=== PATIENT | female | born 1965 | race Caucasian/White ===

== ENCOUNTER 2020-02-20 08:15 | Outpatient (REF) | payer OTHER, SELFPAY ==
--- NOTE | 2020-02-20 08:18 | MM_ITS ---
EXAMINATION: MM SCREENING DIGITAL BREAST TOMOSYNTHESIS, BILATERAL CLINICAL INFORMATION: Screening. Asymptomatic. The lifetime risk of breast cancer based on the Tyrer-Cuzick Model is 11%. COMPARISON: Mammography: 02/15/2019, 07/13/2015 TECHNIQUE: Digital breast tomosynthesis is performed in both the craniocaudal and mediolateral oblique views along with computer-aided detection (CAD). Synthesized 2D images are generated from the tomosynthesis. FINDINGS: There are scattered areas of fibroglandular density (ACR BI-RADS breast composition Category b). There are no significant masses, abnormal calcifications, or other abnormalities. Parenchymal pattern is similar to prior studies. MM/MM tomosynthesis screening BI IMPRESSION: No mammographic evidence of malignancy. ASSESSMENT: BI-RADS 1: Negative RECOMMENDATION: Routine annual mammography screening. This patient's information was entered into a reminder system with a target due date for their next mammogram.
== END 2020-02-20 08:16 | disposition home or self-care (01) ==
LOC: HO.MAMMO 08:15
PROVIDERS: Visit Provider Internal Medicine
DX: Z12.31 Encounter for screening mammogram for malignant neoplasm of breast (principal)
CPT/HCPCS: 77063; 77067

== ENCOUNTER 2020-05-03 09:14 | Outpatient (REF) | payer OTHER, SELFPAY ==
[2020-05-03 10:18] LABS: Alanine Aminotransferase 20 U/L (0-31); Albumin Level 4.7 g/dL (3.5-5.0); Alkaline Phosphatase 74 U/L (39-117); Anion Gap 13 (12-20); Aspartate Amino Transferase 16 U/L (5-31); Bilirubin Total 0.5 mg/dL (0.0-1.0); Blood Urea Nitrogen 15 mg/dL (9-16); Calcium 9.5 mg/dL (8.4-10.2); Carbon Dioxide 28 mmol/L (22-29); Chloride 106 mmol/L (96-108); Cholesterol 234 mg/dL; Estimated Glomerular Filt Rate > 60; Glucose Fasting 99 mg/dL (60-99); HDL Cholesterol 57 mg/dL; LDL Cholesterol Calculated 154 mg/dl; Potassium 4.6 mmol/l (3.3-5.1); Sodium 142 mmol/L (135-145); Total Protein 7.4 g/dL (6.5-8.0); Triglycerides 117 mg/dL
[2020-05-03 10:21] LABS: Estimated Average Glucose 105 mg/dL; Hemoglobin A1c % 5.3 %
[2020-05-06 18:27] LABS: Homocysteine 8.1 umol/L (<10.4)
== END 2020-05-03 09:15 | disposition home or self-care (01) ==
LOC: HO.10HDL 09:14
PROVIDERS: Visit Provider Internal Medicine
DX: Z00.00 Encounter for general adult medical examination without abnormal findings (principal); I25.10 Atherosclerotic heart disease of native coronary artery without angina pectoris; I10 Essential (primary) hypertension; E04.1 Nontoxic single thyroid nodule; E66.3 Overweight; R73.01 Impaired fasting glucose; F41.9 Anxiety disorder, unspecified
CPT/HCPCS: 36415; 80053; 80061; 83036; 83090

== ENCOUNTER 2020-05-23 08:27 | Outpatient (REF) | payer OTHER, SELFPAY ==
--- NOTE | 2020-05-23 08:31 | US_ITS ---
EXAMINATION: US ABDOMEN COMPLETE CLINICAL INFORMATION: Cyst of spleen. COMPARISON: Renal ultrasound 03/13/2019. X-ray abdomen 05/08/2016. Abdominal ultrasound 07/31/2013. TECHNIQUE: Real-time imaging of the abdominal viscera. FINDINGS: PANCREAS: Normal. ABDOMINAL AORTA: The proximal, mid, and distal segments are normal in caliber. INFERIOR VENA CAVA: Visualized portions are normal. LIVER: Normal. The liver is normal in size. The liver contour is normal. Parenchymal echogenicity is normal. No focal hepatic lesion. There is no intrahepatic biliary duct dilatation seen. GALLBLADDER: Normal. The gallbladder is physiologically distended without evidence of stones, sludge, polyps, wall thickening or pericholecystic fluid. Small polyps seen on the previous ultrasound exam 2013 are not visualized at this time. COMMON BILE DUCT: Normal in caliber measuring 0.4 cm in diameter. RIGHT KIDNEY: No hydronephrosis or focal parenchymal lesions. The kidney measures 10.8 cm in maximum dimension. There is a small echogenic stone in lower pole measuring 2 x 3 mm. LEFT KIDNEY: Normal. No hydronephrosis. No renal calculi or focal parenchymal lesions. The kidney measures 11.7 cm in maximum dimension. SPLEEN: Normal. The spleen measures 9.3 cm in maximum dimension. There is an echogenic 0.7 cm calcification. No cyst is seen at this time as was noted on the previous study of 04/07/2013. FREE FLUID: None. US/US abdomen complete IMPRESSION: Echogenic calcification seen in the spleen. No complex cyst is visualized in the spleen as was noted on previous 2013 ultrasound. There is no gallbladder polyps seen in either as was noted on the previous ultrasound 2013. The gallbladder is unremarkable. The rest of the abdominal ultrasound is unremarkable.
== END 2020-05-23 08:28 | disposition home or self-care (01) ==
LOC: HO.US 08:27
PROVIDERS: PCP Internal Medicine; Visit Provider Internal Medicine
DX: N20.0 Calculus of kidney (principal); D73.4 Cyst of spleen
CPT/HCPCS: 76700

== ENCOUNTER 2020-07-02 11:07 | Outpatient (REF) | payer OTHER, SELFPAY | END 2020-07-02 11:08 | disposition home or self-care (01) | LOC: HO.LAB 11:07 | PROVIDERS: Visit Provider Internal Medicine | DX: Z20.822 Contact with and (suspected) exposure to COVID-19 (principal) | CPT/HCPCS: 36415; C9803; U0003; U0005 ==

== ENCOUNTER 2020-07-04 11:36 | Outpatient (REF) | payer OTHER, SELFPAY ==
--- NOTE | ~2020-07-04 | XR_ITS ---
EXAMINATION: XR CHEST CLINICAL INFORMATION: Chest pain. COMPARISON: Chest radiograph dated 11/01/2012 TECHNIQUE: Two views of the chest were obtained. FINDINGS: The lungs are clear. The cardiomediastinal silhouette is normal in size. There is no pleural effusion or pneumothorax. No acute osseous abnormality. XR/XR chest 2V IMPRESSION: No acute cardiopulmonary findings.
--- NOTE | 2020-07-04 11:42 | ECG_ITS ---
Test Reason : CP Blood Pressure : / mmHG Vent. Rate : 061 BPM Atrial Rate : 061 BPM P-R Int : 186 ms QRS Dur : 086 ms QT Int : 406 ms P-R-T Axes : 052 044 046 degrees QTc Int : 408 ms Normal sinus rhythm Normal ECG When compared with ECG of 01-NOV-2012 10:29, No significant change was found Referred By: Chiara Marr Electronically Signed By:NAEEM LIN MD
[2020-07-04 13:19] LABS: Troponin-I High Sensitivity 6.5 ng/L (<3.5-17.0)
== END 2020-07-04 11:37 | disposition home or self-care (01) ==
LOC: HO.LAB 11:36
PROVIDERS: Absent Provider Nurse Practitioner Family; PCP Internal Medicine; Visit Provider Internal Medicine
DX: R07.9 Chest pain, unspecified (principal); E78.00 Pure hypercholesterolemia, unspecified; I25.10 Atherosclerotic heart disease of native coronary artery without angina pectoris
CPT/HCPCS: 36415; 71046; 84484; 93005

== ENCOUNTER → 2020-08-22 13:09 | Outpatient (REF) | payer OTHER, SELFPAY ==
--- NOTE | 2020-08-22 13:12 | CA_ITS ---
Transthoracic Echocardiogram Patient (Last, First, Middle): Tori Roth, Gender: Female Date of : 1965 Age: 55 Procedure Date: 08/22/2020 Procedure Type: Transthoracic Echocardiogram Location: OP Height: 162.56 cm Weight: 75.75 kg BSA: 1.81 m2 Heart Rate: bpm BP: 127 / 83 mmHg Network Controller: SARTHAK Crews MD: Tamy Pascal MD Release Engineer: Bayron Dwyer MD Symptoms: I25.10 - Atherosclerotic heart disease of [place] coronary artery without angina pectoris Study Quality: Good ECG Rhythm: Sinus Conclusions: - 1. Normal LV systolic function with grade 1 diastolic dysfunction 2. Normal cardiac valvular Doppler 3. Normal RV systolic pressure 4. No pericardial effusion Findings Left Ventricle Normal left ventricular size, thickness, and systolic function. The visually estimated ejection fraction is between 60-65%. Spectral Doppler is indicative of an impaired relaxation filling pattern. E/E prime ratio is <8, consistent with normal filling pressures. Evidence suggests grade I (mild) diastolic dysfunction. Right Ventricle Normal right ventricular cavity size and systolic function. Atria Both atria are normal in size. Aortic Valve Normal aortic valve structure and function. There is no aortic valve stenosis. There is no aortic valve regurgitation. Mitral Valve Normal mitral valve structure and function. There is trace mitral valve regurgitation. There is no mitral valve stenosis. Pulmonic Valve The pulmonic valve was not well visualized. Tricuspid Valve Likely normal tricuspid valve structure and function. There is trace tricuspid valve regurgitation. The right ventricular systolic pressure is normal. The right ventricular systolic pressure is 20 mmHg. Normal right atrial pressure. There is no evidence of pulmonary hypertension. Great Vessels All visible segments of the aorta are normal in size. The pulmonary artery was not well visualized. Venous The inferior vena cava is normal in size and collapses greater than 50% with inspiration. Pericardium/Pleural There is no evidence of pericardial effusion. Prior Study Comparison No previous study in last 5 years for comparison Measurements 2D Linear Measurements IVSd: 1.00 0.6-0.9/0.6-1.0 cm LVIDd: 4.46 3.9-5.3/4.2-5.9 cm LVIDd Index: 2.46 2.4-3.2/2.2-3.1 cm/m2 LVIDs: 2.43 2.0-3.6 cm LVPWd: 0.99 0.7-1.1 cm Ao Root: 3.30 2.1-3.5 cm LA Diam: 3.70 2.7-3.8/3.0-4.0 cm LAIDs Index: 2.04 1.5-2.3 cm/m2 LV Mass: 186.80 67-162/88-224 g LV Mass Index: 103.21 43-95/49-115 g/m2 LVOT Diam: 2.10 3.0+(-)1.3 cm 2D Systolic Function EF 4C: 70.00 >55% EF 2C: 64.10 >55% EF BiP: 67.70 >55% Mitral Valve MV Pk E: 0.67 MV PK A: 0.80 MV Decel Time: 239.00 E/A: 0.80 E'Lateral: 7.83 E'Medial: 7.25 E/E' Med: 9.20 E/E' Lat: 8.50 PHT: 70.00 MVA PHT: 3.14 Decel Wayne: 2.78 Aortic Valve AoV Pk Miguel Angel: 1.66 AoV Mn Miguel Angel: 1.12 AoV VTI: 0.35 AoV Pk Grad: 11.00 Aov Mn Grad: 6.00 TONEY Cont.VTI: 2.59 LVOT LVOT Pk Miguel Angel: 1.22 LVOT Mn Miguel Angel: 0.81 LVOT VTI: 0.26 LVOT Pk Grad: 6.00 LVOT Mn Grad: 3.00 LVOT Diam: 2.10 LVOT Area: 3.46 Diastolic Function MV Pk E: 0.67 MV Pk A: 0.80 E/A: 0.80 E'Medial: 7.25 E/E' Med: 9.20 E' Laterial: 7.83 E/E' Lat: 8.50 Tricuspid Valve TR Pk Miguel Angel: 2.04 TR Pk Grad: 17.00 RA Press: 3.00 RVSP: 20.00 Great Vessels Aorta Ao Root-2D: 3.30 2.0-3.7 cm Ao Asc: 3.10 2.1-3.4 cm Ao Arch: 2.30 Updated in Other Vendor System with Status of Final Bayron Dwyer MD electronically signed on 08/22/2020 4:53:39 PM with status of Final
== END ==
LOC: HO.CARD 13:09
PROVIDERS: Visit Provider Internal Medicine
DX: I25.10 Atherosclerotic heart disease of native coronary artery without angina pectoris (principal)
CPT/HCPCS: 93306

== ENCOUNTER → 2020-09-18 14:33 | Outpatient (BNVA) | payer OTHER, SELFPAY | PROVIDERS: PCP Internal Medicine; Referring Provider Internal Medicine; Visit Provider Internal Medicine Cardiovascular Disease | DX: Z01.810 Encounter for preprocedural cardiovascular examination (principal); I25.42 Coronary artery dissection; I10 Essential (primary) hypertension | CPT/HCPCS: 93005 ==

== ENCOUNTER 2020-10-02 09:08 | Day surgery (SDC) | payer OTHER, SELFPAY ==
[2020-09-27 08:36] VITALS: BMI 29.1
--- NOTE | 2020-09-27 14:55 | HO.ANESPROP2 ---
HPI - Anesthesia Eval Consult details Narrative: 55yo F for Upper Endoscopy and Colonoscopy Cardiac cleared @ low to intermed risk. She has no concerning cardiovascular symptoms right now. With activity she has no chest pain or shortness of breath. I think she can proceed with colonoscopy/EGD with low to intermediate risk for perioperative cardiovascular complications. 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 [facility] Active Problems Active Problems: All Active Problems (Updated 09/18/20 @ 15:32 by Oscar Cyr MD) Preoperative cardiovascular examination (Acute) Spontaneous dissection of coronary artery (Acute) Hypercholesterolemia (Acute) Chest pain (Acute) Renal calculi (Acute) Splenic cyst (Acute) Thyroid nodule (Acute) Anxiety (Acute) Hypertension (Acute) Coronary artery disease (Acute) Past Medical History Medical History (Updated 09/18/20 @ 15:32 by Oscar Cyr MD) Anemia Anxiety Chest pain Coronary artery disease Hypertension On beta jarrett at home Renal calculi Splenic cyst Thyroid nodule Vasospastic angina Family History Family History Father Mouth cancer Mother T-cell lymphoma Hypertension Maternal Uncle Stomach cancer Paternal Aunt Stomach cancer Colon cancer Paternal Uncle Myocardial infarction Cancer of kidney Son No problems noted. Daughter No problems noted. Surgical History Surgical History (Updated 08/16/20 @ 13:35 by Gracie Stapleton) History of section History of esophagogastroduodenoscopy (EGD) History of lithotripsy History of total hysterectomy S/P cardiac catheterization Social History Social History Alcohol intake: current Alcohol intake frequency: holidays/special occasions only Patient Tobacco Use Status: Never used Tobacco Use of substances other than those prescribed or required for medical reasons: No Are you DNR?: No Advance Directives: No Advance Directives Information Provided: Yes Meds Allergies Allergy/AdvReac Type Severity Reaction Status Date / Time naproxen Allergy Unknown Unknown Verified 08/16/20 13:30 perindopril Allergy Unknown Unknown Verified 04/25/20 08:28 lisinopril AdvReac Intermediate cough Verified 09/27/20 08:37 Home Medications Medication Instructions Recorded Confirmed Last Taken Type ascorbate calcium (vitamin C) 500 500 mg PO DAILY 05/07/20 09/27/20 Unknown History mg tablet cholecalciferol (vitamin D3) 25 25 mcg PO DAILY 05/07/20 09/27/20 Unknown History mcg (1,000 unit) capsule Exam Exam Date and Time: September 27, 2020 1455 Height,Weight and Vital Signs: Height 5 ft 4 in Weight 77 kg Narrative Narrative: EKG 08/2020 Normal sinus rhythm, normal EKG, QTC 405 milliseconds. ECHO 07/2020 Conclusions: - 1. Normal LV systolic function with grade 1 diastolic dysfunction 2. Normal cardiac valvular Doppler 3. Normal RV systolic pressure 4. No pericardial effusion Assessment and Plan Assessment Anesthesia Assessment: Chart Reviewed
[2020-10-02 09:28] VITALS: BP 143/77; PULSE 76; RESP 18; TEMP 36.7; O2SAT 97
[2020-10-02] MEDS: Lactated Ringers 1,000 ML 100 ML IVCONT (09:50)
[2020-10-02 11:40] VITALS: BP 105/59; PULSE 71; RESP 16; TEMP 36.2; O2SAT 99
--- NOTE | 2020-10-02 11:46 | PM.OP ---
Brief Operative Note Date of Service: 10/02/20 Pre-op diagnosis: GERD, Screening Post-op diagnosis: other (Hiatal hernia, Colon polyp) Procedure: EGD, Colonoscopy to the cecum and TI with biopsy and removal of polyp Surgeon: Benito Mathews Anesthesia: MAC Was an Blanket Winder Operator used for this Procedure?: No Estimated blood loss (mL): 3.0 Pathology: other (A. Cecal polyp) Condition: stable Disposition: PACU
[2020-10-02 11:55] VITALS: BP 117/66; PULSE 67; RESP 18; TEMP 36.3; O2SAT 97
--- NOTE | 2020-10-11 12:29 | OP_ITS ---
SURGEON: Benito Mathews MD INDICATIONS: The patient presents for evaluation of gastroesophageal reflux and colorectal cancer screening. Full consent was obtained from her for this, including risks of bleeding and perforation. PREOPERATIVE DIAGNOSIS: Gastroesophageal reflux and colorectal cancer screening. POSTOPERATIVE DIAGNOSIS: Gastroesophageal reflux and colorectal cancer screening, small hiatal hernia, small colon polyp, mild sigmoid diverticulosis, internal hemorrhoids. PROCEDURE PERFORMED: Esophagogastroduodenoscopy, and colonoscopy to cecum and terminal ileum with biopsy and removal of polyp. ESTIMATED BLOOD LOSS: COMPLICATIONS: ANESTHESIA: Preop medication used, monitored anesthesia care. ASSISTANTS: SPECIMENS: DESCRIPTION OF PROCEDURE: Patient was placed in the left lateral decubitus position. The Olympus video gastroscope was passed in the posterior oropharynx and upper esophagus under direct vision. The scope was passed slowly into the distal esophagus. The gastroesophageal junction appeared normal at 36 cm. There was no sign of any esophagitis nor mass. There was a minimal hiatal hernia. The scope was advanced to the pylorus and duodenum was cannulated to the descending portion. The duodenum including the bulb appeared normal without mass or ulceration. The scope was withdrawn back to the stomach. The gastric antrum and body appeared normal with good peristalsis. The scope was retroflexed visualizing the proximal stomach carefully, which appeared normal, without any sign of mass or ulceration. Scope was straightened and withdrawn back to the esophagus. The esophageal mucosa appeared normal. The scope was withdrawn from the patient. She was turned around for the colonoscopy. The digital rectal exam revealed no abnormalities. The Olympus video pediatric colonoscope was entered into the rectum and advanced easily to the cecum. Once in the cecum, I did identify cecal pouch with appendiceal orifice and a normal-appearing ileocecal valve. The terminal ileum was cannulated and appeared normal. Scope was withdrawn back in the colon. The entire cecum and ileocecal valve appeared normal other than a 3 mm polyp in the cecum, which was biopsied and completely removed with cold biopsy forceps. I did not visualize any other abnormalities in the cecum. The scope was then slowly withdrawn assessing all mucosal surfaces carefully. Preparation was excellent. I did not visualize any other polyps, colitis, nor angiodysplasia. There was a mild amount of sigmoid diverticulosis. In the rectum, scope was retroflexed visualizing small internal hemorrhoids, but no other pathology. The rectal mucosa appeared normal. The scope was straightened and withdrawn from the patient. She tolerated both procedures well and was returned to the recovery area in stable condition. IMPRESSION: 1. Minimal hiatal hernia, otherwise, normal upper endoscopy. 2. Small colon polyp, status post biopsy removal. 3. Sigmoid diverticulosis. 4. Internal hemorrhoids. PLAN: The results of biopsy will be checked. If this is a tubular adenoma, I would recommend a followup colonoscopy in 5 years. If it is only hyperplastic, I would recommend a followup colonoscopy in 10 years. She had been advised at the last office visit to try to stop her omeprazole as we did not think her symptoms were consistent with reflux. Given today's negative endoscopy, I do not think she needs to go back on omeprazole at this time. She will, otherwise, see me on a p.r.n. basis. MD VIC Joseph/SHANNON / [id number] MTDD
== END 2020-10-02 12:25 | disposition home or self-care (01) ==
PROVIDERS: PCP Internal Medicine; Visit Provider Internal Medicine
PROC: (CPT 45380; principal; 2020-10-02 10:00)
DX: Z12.11 Encounter for screening for malignant neoplasm of colon (principal); D12.0 Benign neoplasm of cecum; K57.30 Diverticulosis of large intestine without perforation or abscess without bleeding; K64.8 Other hemorrhoids; K21.9 Gastro-esophageal reflux disease without esophagitis; K44.9 Diaphragmatic hernia without obstruction or gangrene; I10 Essential (primary) hypertension; I25.42 Coronary artery dissection; Z79.899 Other long term (current) drug therapy
CPT/HCPCS: 45380; 43235; 88305

== ENCOUNTER 2021-02-24 08:39 | Outpatient (REF) | payer OTHER, SELFPAY ==
[2021-02-24 09:39] LABS: Alanine Aminotransferase 14 U/L (0-31); Albumin Level 4.4 g/dL (3.5-5.0); Alkaline Phosphatase 73 U/L (39-117); Anion Gap 10 (12-20); Aspartate Amino Transferase 12 U/L (5-31); Bilirubin Total 0.4 mg/dL (0.0-1.0); Blood Urea Nitrogen 13 mg/dL (9-16); Calcium 9.5 mg/dL (8.4-10.2); Carbon Dioxide 29 mmol/L (22-29); Chloride 108 mmol/L (96-108); Cholesterol 228 mg/dL; Estimated Glomerular Filt Rate > 60; Glucose Random 101 mg/dL (60-115); HDL Cholesterol 52 mg/dL; LDL Cholesterol Calculated 149 mg/dl; Potassium 4.4 mmol/L (3.3-5.1); Sodium 143 mmol/L (135-145); Triglycerides 136 mg/dL
== END 2021-02-24 08:40 | disposition home or self-care (01) ==
LOC: HO.LAB 08:39
PROVIDERS: PCP Internal Medicine; Visit Provider Internal Medicine
DX: E78.00 Pure hypercholesterolemia, unspecified (principal)
CPT/HCPCS: 36415; 80053; 80061

== ENCOUNTER 2021-03-17 08:37 | Outpatient (REF) | payer OTHER, SELFPAY ==
--- NOTE | ~2021-03-17 | US_ITS ---
EXAMINATION: US ABDOMEN COMPLETE CLINICAL INFORMATION: Other specified abnormal findings of blood chemistry. COMPARISON: Ultrasound abdomen complete 05/23/2020. Renal ultrasound 03/13/2019. X-ray abdomen 05/08/2016. TECHNIQUE: Real-time imaging of the abdominal viscera. FINDINGS: PANCREAS: Normal. ABDOMINAL AORTA: The proximal, mid, and distal segments are normal in caliber. INFERIOR VENA CAVA: Visualized portions are normal. LIVER: The liver is normal in size. The liver contour is normal. There is mild increased liver echogenicity. No focal hepatic lesion. There is no intrahepatic biliary duct dilatation seen. GALLBLADDER: Normal. The gallbladder is physiologically distended without evidence of stones, sludge, polyps, wall thickening or pericholecystic fluid. COMMON BILE DUCT: Normal in caliber measuring 0.6 cm in diameter. RIGHT KIDNEY: Normal. No hydronephrosis. No renal calculi or focal parenchymal lesions. The kidney measures 11.4 cm in maximum dimension. LEFT KIDNEY: There is an echogenic cluster of stones in the upper pole measuring 0.6 x 0.5 x 0.6 cm. No hydronephrosis or focal parenchymal lesions. The kidney measures 12.2 cm in maximum dimension. SPLEEN: Normal. The spleen measures 9.1 cm in maximum dimension. FREE FLUID: None. US/US abdomen complete IMPRESSION: Mildly echogenic liver. No focal lesion seen. Clustered stones in the upper pole left kidney without caliectasis. The rest of the abdominal ultrasound is unremarkable.
== END 2021-03-17 08:38 | disposition home or self-care (01) ==
LOC: HO.US 08:37
PROVIDERS: PCP Internal Medicine; Visit Provider Internal Medicine
DX: R10.11 Right upper quadrant pain (principal); N20.0 Calculus of kidney; R79.89 Other specified abnormal findings of blood chemistry
CPT/HCPCS: 76700

== ENCOUNTER → 2021-03-24 12:52 | Outpatient (BNVA) | payer OTHER, SELFPAY | PROVIDERS: PCP Internal Medicine; Referring Provider Internal Medicine; Visit Provider Internal Medicine Cardiovascular Disease ==

== ENCOUNTER → 2021-06-19 09:01 | Outpatient (REF) | payer OTHER, SELFPAY ==
--- NOTE | 2021-06-19 09:04 | CA_ITS ---
Acquisition Time: 2021-06-19 09:29:03 Total Exercise Time: 00:08:12 Test Indications: CP Medications: SEE CHART Protocol: SABIHA Max HR: 142 BPM 86% of Pred: 164 BPM Max BP: 170/080 mmHG Max Work Load: 10.1 METS Exercise stres test with exercise 8 min 12 sec of Sabiha protocol, without anginal symptoms, with isolated PVC, with normotensive response to exercise, with EKG changes meeting criteria for ischemia: [address] depression inferiorly, V6, 0.5-1mm horizontal ST depression V3-V5 with gradual improvement in recovery. Test reviewed with Dr Willard Will order exercise nuclear stress test for further evaluation. Referred By: Tamy Pascal Overread By: CARY JI
== END ==
LOC: HO.CARD 09:01
PROVIDERS: PCP Internal Medicine; Visit Provider Internal Medicine
DX: R07.9 Chest pain, unspecified (principal); R94.39 Abnormal result of other cardiovascular function study
CPT/HCPCS: 93017

== ENCOUNTER 2021-07-07 15:09 | Outpatient (REF) | payer OTHER, SELFPAY ==
--- NOTE | ~2021-07-07 | XR_ITS ---
EXAMINATION: XR CHEST CLINICAL INFORMATION: Chest pain COMPARISON: Previous chest x-ray June 2020 TECHNIQUE: 2 views of the chest were obtained. FINDINGS: The cardiac and mediastinal contours are stable. The lungs are clear. There is no pleural effusion or pneumothorax. There are degenerative changes of the spine. XR/XR chest 2V IMPRESSION: No evidence for acute disease in the chest.
--- NOTE | 2021-07-07 15:14 | ECG_ITS ---
Test Reason : CHEST PAIN Blood Pressure : / mmHG Vent. Rate : 074 BPM Atrial Rate : 074 BPM P-R Int : 168 ms QRS Dur : 086 ms QT Int : 376 ms P-R-T Axes : 071 060 069 degrees QTc Int : 417 ms Normal sinus rhythm Normal ECG When compared with ECG of 04-JUL-2020 11:48, No significant change was found Referred By: Tamy Pascal Electronically Signed By:KOLTON OWENS
== END 2021-07-07 15:10 | disposition home or self-care (01) ==
LOC: HO.XRAY 15:09
PROVIDERS: PCP Internal Medicine; Visit Provider Internal Medicine
DX: R07.9 Chest pain, unspecified (principal)
CPT/HCPCS: 71046; 93005

== ENCOUNTER → 2021-07-09 08:05 | Outpatient (REF) | payer OTHER, SELFPAY ==
--- NOTE | ~2021-07-09 | NM_ITS ---
Exercise Myocardial perfusion study Indication: Abnormal stress test to evaluate for myocardial ischemia Technique: The patient was brought in for an exercise perfusion study on 07/09/2021. Patient performed exercise as per Vicente protocol and was injected 25 mCi of sestamibi was given intravenously one target HR was achieved. Images were obtained using the SPECT gamma camera interlaced with the gating device. Images were obtained in supine position. Resting perfusion study was performed on 07/10/2021. Patient was administered 25 mCi of sestamibi intravenously at rest. Images were then obtained in supine position. Images obtained with and without CT attenuation. Total DLP 105 mGy-cm. Images were processed with the software and compared side to side in short axis, horizontal long axis and vertical long axis views. Findings: The stress perfusion study showed non attenuated and attenuated corrected images show normal uptake of radiotracer in all segments of LV myocardium. The gated study shows normal LV systolic function with calculated LVEF of greater than 70 %. LV cavity is normal in size. The gated study shows normal systolic wall thickening and contraction of all segments. There is no transient ischemic dilation. Resting study shows non attenuated images show uptake in the basal inferoseptal wall of the LV myocardium.. Gating at rest reveals normal systolic wall motion with visually estimated ejection fraction at greater than 70%. The findings are consistent with normal myocardial perfusion. NM/NM cardiolite stress test Impression: 1. Normal myocardial perfusion 2. Gated LVEF is greater than 70% 3. Transient ischemic dilatation not present Stress EKG is positive for ischemia
--- NOTE | 2021-07-09 08:08 | CA_ITS ---
Acquisition Time: 2021-07-09 08:15:39 Total Exercise Time: 00:09:06 Test Indications: Abnormal Treadmill Test Medications: AMLODIPINE METOPROLOL Protocol: SABIHA Max HR: 144 BPM 87% of Pred: 164 BPM Max BP: 172/084 mmHG Max Work Load: 10.2 METS Exercise stress test with exercise 9 min 6 sec of Sabiha protocol, without anginal symptoms, without arrythmia, with normotensive response to exercise, with EKG changes meeting criteria for ischemia; horizontal ST depression nferiorly and V5-V6 with gradual improvement in recovery. Nuclear images pending. Test reviewed with Dr Willard. Referred By: Kylie Adhikari Overread By: KYLIE ADHIKARI
== END ==
LOC: HO.CARD 08:05
PROVIDERS: Visit Provider Nurse Practitioner Family
DX: R07.9 Chest pain, unspecified (principal); R94.39 Abnormal result of other cardiovascular function study
CPT/HCPCS: 78452; 93017; A9500

== ENCOUNTER → 2021-09-15 13:43 | Outpatient (BNVA) | payer OTHER, SELFPAY | PROVIDERS: PCP Internal Medicine; Referring Provider Internal Medicine; Visit Provider Internal Medicine Cardiovascular Disease | DX: I25.42 Coronary artery dissection (principal) ==

== ENCOUNTER 2022-01-27 09:15 | Outpatient (REF) | payer OTHER, SELFPAY ==
[2022-01-27 11:14] LABS: Appearance Urine Clear; Color Urine Yellow; Glucose Urine UA Negative (Negative); Leukocyte Esterase Urine Trace (Negative); Nitrite Urine Negative (Negative); Specific Gravity - Urine <= 1.005 (1.005-1.025); UMIC TRIGGER UACC YES; Urine Blood Negative (Negative); Urine Ketones Negative (Negative); Urine Protein Negative (Neg-Trace)
[2022-01-27 11:21] LABS: Bacteria Urine None Seen (None Seen); Hyaline Casts Urine 0-2 /LPF (0-2); RBC Urine 0-2 /HPF (0-2); Squamous Epithelial Cell Urine 0-2 /HPF (0-2); WBC Urine 0-5 /HPF (0-5)
== END 2022-01-27 09:16 | disposition home or self-care (01) ==
LOC: HO.LAB 09:15
PROVIDERS: PCP Internal Medicine; Visit Provider Physician Assistant
DX: R30.0 Dysuria (principal); N20.0 Calculus of kidney
CPT/HCPCS: 81001; 87086

== ENCOUNTER 2022-02-13 09:06 | Outpatient (REF) | payer OTHER, SELFPAY ==
--- NOTE | ~2022-02-13 | US_ITS ---
EXAMINATION: US RETROPERITONEAL LIMITED (RENAL ONLY) CLINICAL INFORMATION: Calculus of kidney. COMPARISON: Ultrasound abdomen complete 03/17/2021 and 05/23/2020. X-ray abdomen 10/06/2016. X-ray abdomen KUB 08/30/2013 TECHNIQUE: Real-time imaging of the kidneys. FINDINGS: RIGHT KIDNEY: 10.7 x 4.7 x 4.8 cm (SAG x AP x TRV). The kidney is normal in size, contour, and echogenicity. Renal cortical thickness is normal. No calculi or focal parenchymal lesions. No hydronephrosis. LEFT KIDNEY: 11.7 x 5.0 x 5.8 cm (SAG x AP x TRV). The kidney is normal in size, contour, and echogenicity. Renal cortical thickness is normal. There is a 2 mm stone in the midpole. No focal parenchymal lesions or hydronephrosis. US/US renal BI IMPRESSION: Small left renal stone..
== END 2022-02-13 09:07 | disposition home or self-care (01) ==
LOC: HO.HMGCX 09:06
PROVIDERS: PCP Internal Medicine; Visit Provider Physician Assistant
DX: N20.0 Calculus of kidney (principal)
CPT/HCPCS: 76775

== ENCOUNTER → 2022-03-12 09:40 | Outpatient (BNVA) | payer OTHER, SELFPAY | PROVIDERS: PCP Internal Medicine; Referring Provider Internal Medicine; Visit Provider Internal Medicine Cardiovascular Disease | DX: R94.31 Abnormal electrocardiogram [ECG] [EKG] (principal); I25.42 Coronary artery dissection; I25.2 Old myocardial infarction; I10 Essential (primary) hypertension | CPT/HCPCS: 93005 ==

== ENCOUNTER 2022-04-15 07:42 | Outpatient (REF) | payer OTHER, SELFPAY ==
--- NOTE | ~2022-04-15 | MM_ITS ---
EXAMINATION: MM SCREENING DIGITAL BREAST TOMOSYNTHESIS, BILATERAL CLINICAL INFORMATION: Screening. Asymptomatic. The lifetime risk of breast cancer based on the Tyrer-Cuzick Model is 8%. COMPARISON: Mammography: 02/20/2020, 02/15/2019, 07/13/2015 TECHNIQUE: Digital breast tomosynthesis is performed in both the craniocaudal and mediolateral oblique views along with computer-aided detection (CAD). Synthesized 2D images are generated from the tomosynthesis. FINDINGS: There are scattered areas of fibroglandular density (ACR BI-RADS breast composition Category b). There are no significant masses, abnormal calcifications, or other abnormalities. Parenchymal pattern is similar to prior studies. There is no developing density or architectural abnormality. The axilla and skin contours are unremarkable. No significant changes. MM/MM tomosynthesis screening BI IMPRESSION: No mammographic evidence of malignancy. ASSESSMENT: BI-RADS 1: Negative RECOMMENDATION: Routine annual mammography screening. This patient's information was entered into a reminder system with a target due date for their next mammogram.
== END 2022-04-15 07:43 | disposition home or self-care (01) ==
LOC: HO.MAMMO 07:42
PROVIDERS: PCP Internal Medicine; Visit Provider Internal Medicine
DX: Z12.31 Encounter for screening mammogram for malignant neoplasm of breast (principal)
CPT/HCPCS: 77063; 77067

== ENCOUNTER 2022-07-21 13:00 | Outpatient (REF) | payer OTHER, SELFPAY ==
--- NOTE | ~2022-07-21 | US_ITS ---
EXAMINATION: US THYROID CLINICAL INFORMATION: Nontoxic single thyroid nodule. COMPARISON: Ultrasound thyroid 01/23/2020 and 03/13/2019. TECHNIQUE: Linear transducer grayscale and color Doppler examination with attention to the region of the thyroid. FINDINGS: SIZE: Measurements of the thyroid lobes and nodules are given in sagittal, anteroposterior and transverse dimensions respectively. Right Thyroid Lobe: 4.1 x 1.8 x 1.8 cm, volume 6.9 mL. Previously 4.9 x 1.4 x 1.7 cm, volume 6.1 mL. Parenchyma: The gland echotexture is homogeneous. Thyroid vascularity is normal. Left Thyroid Lobe: 3.9 x 1.4 x 1.3 cm, volume 3.7 mL. Previously 4.0 x 1.5 x 1.6 cm, volume 5.0 mL. Parenchyma: The gland echotexture is homogeneous. Thyroid vascularity is normal. Isthmus: 0.4 cm in maximum AP dimension. Previously 0.4 cm. No focal thyroid nodule is seen. Bilateral simple and colloid cysts, all measuring less than 1 cm. No suspicious thyroid nodule. NODES: No lymphadenopathy is seen in the tissue surrounding the thyroid gland. US/US thyroid IMPRESSION: Bilateral simple and colloid cysts, all measuring less than 1 cm. No suspicious thyroid nodule. According to TI rads criteria, no US follow up recommended. ACR TI-RADS RECOMMENDATION REFERENCE: Ultrasound-guided fine-needle aspiration, followup ultrasound, no further follow up. * TR1 (0 point) and TR2 (2 points): No FNA or follow up. * TR3 (3 points): FNA if more than or equal to 2.5 cm in maximum dimension, followup ultrasound in 1, 3 and 5 years if 1.5 to 2.4 cm in maximum dimension. * TR4 (4-6 points): FNA if more than or equal to 1.5 cm in maximum dimension, followup ultrasound in 1, 2, 3 and 5 years if 1 to 1.4 cm in maximum dimension. * TR5 (more than or equal to 7 points): FNA if more than or equal to 1 cm in maximum dimension, followup ultrasound every year for 5 years if 0.5 to 0.9 cm in maximum dimension. * TR3, TR4 or TR5 nodules that are below the size threshold for followup receive no follow up.
== END 2022-07-21 13:01 | disposition home or self-care (01) ==
LOC: HO.US 13:00
PROVIDERS: PCP Internal Medicine; Visit Provider Internal Medicine
DX: E04.1 Nontoxic single thyroid nodule (principal)
CPT/HCPCS: 76536

== ENCOUNTER 2022-08-05 07:06 | Outpatient (REF) | payer OTHER, SELFPAY ==
--- NOTE | ~2022-08-05 | XR_ITS ---
EXAMINATION: XR SHOULDER, RIGHT CLINICAL INFORMATION: Pain. COMPARISON: None available. TECHNIQUE: AP external rotation, Grashey, scapular Y, and axillary views of the right shoulder. FINDINGS: The bones and soft tissues are normal. No fracture. Glenohumeral and acromioclavicular alignment is anatomic with normal joint space. No abnormal soft tissue calcifications. XR/XR shoulder RT min 2V IMPRESSION: Unremarkable right shoulder.
== END 2022-08-05 07:07 | disposition home or self-care (01) ==
LOC: HO.HOSX 07:06
PROVIDERS: Visit Provider Physician Assistant
DX: M25.811 Other specified joint disorders, right shoulder (principal); M75.21 Bicipital tendinitis, right shoulder
CPT/HCPCS: 73030

== ENCOUNTER 2022-09-15 08:00 | Outpatient (RCR) | payer OTHER, SELFPAY ==
--- NOTE | 2022-10-19 13:29 | MHC.PT.DC ---
[facility] [place] [facility] [place] [facility] [place] [facility] [address] Bashir Capone [address] [phone] F: [phone] F: [phone] F: [phone] F: [phone] Physical Therapy Discharge Report Diagnosis: RIGHT BICIPIAL TENDONITIS Date of Surgery: NA Date of Evaluation: 09/01/22 Date of Discharge: 10/19/22 Treatments to Date: 5 Cancellations to Date: 0 No Shows to Date: 0 Discharge Status: Achieved Goals Improved Function Independent with HEP Patient Elected to Stop Discharge Summary: phoned to cancel last two visits, states she is doing well and feels independent with self management. Electronically signed by: Shavonne Hunter PT DPT Please sign and return to therapist. Thank you for your referral.
== END 2022-10-19 13:29 | disposition home or self-care (01) ==
LOC: HO.PT 08:00
PROVIDERS: PCP Internal Medicine; Visit Provider Physician Assistant
DX: M25.811 Other specified joint disorders, right shoulder (principal); M75.21 Bicipital tendinitis, right shoulder
CPT/HCPCS: 97110; 97161

== ENCOUNTER → 2022-09-23 09:25 | Outpatient (BNVA) | payer OTHER, SELFPAY | PROVIDERS: PCP Internal Medicine; Referring Provider Internal Medicine; Visit Provider Internal Medicine Cardiovascular Disease ==

== ENCOUNTER 2022-10-12 10:19 | Outpatient (REF) | payer OTHER, SELFPAY ==
--- NOTE | ~2022-10-12 | XR_ITS ---
EXAMINATION: XR SACRUM AND COCCYX CLINICAL INFORMATION: S30.0XXA - Contusion of lower back and pelvis, initial encounter COMPARISON: None available. TECHNIQUE: 2 views of the sacrum and 2 views of the coccyx were obtained. FINDINGS: There is no fracture or destructive process. The SI joints show no ankylosis or erosive changes or subchondral sclerosis. The lumbosacral junction is unremarkable. No focal disc narrowing or spondylolisthesis. XR/XR sacrum coccyx min 2V IMPRESSION: Unremarkable examination.
== END 2022-10-12 10:20 | disposition home or self-care (01) ==
LOC: HO.HMGCX 10:19
PROVIDERS: PCP Internal Medicine; Visit Provider Internal Medicine
DX: S30.0XXA Contusion of lower back and pelvis, initial encounter (principal)
CPT/HCPCS: 72220

== ENCOUNTER 2023-01-25 08:37 | Outpatient (AMB) | payer OTHER, SELFPAY ==
--- NOTE | 2023-01-25 08:50 | MHC.PC.OV ---
Vital Signs 01/25/23 08:51 Height 5 ft 4 in Weight 173 lb 4 oz BMI 29.7 BP 132/80 Blood Pressure Location Lt brachial Position Sitting Pulse 65 Pulse Source Pulse Oximeter Pulse Oximetry (%) 97 Oxygen Delivery Method Room Air Intake Visit Reasons: Hypertension Intake Note: Patient is here to follow up on HTN. Slumber Room Attendant Required: No President And Chief Commercial Officer: Not Required per policy Accompanied by: Self / Same As Patient Allergies naproxen Allergy (Unknown, Verified 01/25/23 08:50) Unknown perindopril Allergy (Unknown, Verified 01/25/23 08:50) Unknown atorvastatin Adverse Reaction (Intermediate, Verified 01/25/23 08:50) myalgia lisinopril Adverse Reaction (Intermediate, Verified 01/25/23 08:50) cough Tobacco use date assessed: 01/25/23 Dental Screening Dental Screen Date: 01/25/23 Did you have a dental visit in the last 12 months?: No Did you have a dental problem in the last 6 months where you did not have access to dental care?: No Was dental information given to patient?: No HPI HPI Comments History of Present Illness Details 57-year-old female past medical history significant for hypertension, generalized anxiety disorder, impaired glucose tolerance, thyroid nodule and right biceps tendinitis. Patient Dr. Pascal presents today fro hypertension follow up. Blood pressure below goal today 132/80 in office today. Patient reports left heel pain over the summer which has since resolved. Patient advised to follow if right heel pain returns or if she develops any swelling. patient agreeable. Fastin labs ordered to be completed prior to physical exam with Dr. Pascal. [facility] Medical History Abnormal stress ECG with treadmill Anemia Anxiety Breast cancer screening by mammogram Chest pain Chest pain Hypertension Left nephrolithiasis On beta jarrett at home Preoperative cardiovascular examination Renal calculi Splenic cyst Thyroid nodule Vasospastic angina Surgical History History of esophagogastroduodenoscopy (EGD) S/P cardiac catheterization History of lithotripsy History of total hysterectomy History of section Family History Father Mouth cancer Mother T-cell lymphoma Hypertension Maternal Uncle Stomach cancer Paternal Aunt Stomach cancer Colon cancer Paternal Uncle Myocardial infarction Cancer of kidney Son No problems noted. Daughter No problems noted. Social History Housing: House Alcohol intake: current Alcohol intake frequency: holidays/special occasions only Patient Tobacco Use Status: Never used Tobacco e-Cigarette/Vaping Use: Never Used Second Hand Smoke Exposure: No service: No Current occupational status: employed Current occupation: [employer], right handed Current occupational exposures/hazards: No Cognitive needs: No Hearing needs: No Vision needs: No Questionnaire Thrive Questionnaire Date Thrive assessed: 07/08/22 ARIES-7 AMB Questionnaire ARIES-7 Date ARIES - 7 assessed: 07/08/22 Source: Developed by Drs. Benito Dowell, Yris Smith, Mazin Gutierrez and colleagues, with an educational jodie from [employer]. Review of Systems Const Denies chills, Denies fatigue, Denies fever(s) and Denies poor appetite Eyes Denies no additional complaints ENT Reports Normal hearing present Card Denies chest pain, Denies syncope, Denies rapid heart rate and Denies dyspnea Resp Denies cough and Denies dyspnea GI Denies change in stool character, Denies constipation, Denies diarrhea, Denies nausea and Denies vomiting Denies urinary frequency, Denies dysuria and Denies urinary urgency Neuro Reports Normal hearing present, Denies confusion and Denies syncope Psych Denies confusion Endo Denies fatigue Physical exam (Primary Care) Vital Signs: Last Vital Signs Pulse 65 01/25/23 08:51 BP 132/80 01/25/23 08:51 Pulse Ox 97 01/25/23 08:51 Oxygen Delivery Method Room Air 01/25/23 08:51 BMI result Body Mass Index 29.7 Tobacco/Smoking Status: Tobacco use Status Tobacco use date assessed 01/25/23 01/25/23 08:54 Patient Tobacco Use Status Never used Tobacco 01/25/23 08:54 e-Cigarette/Vaping Use Never Used 01/25/23 08:54 Thrive Assessment: Date of Thrive Assessment Date Thrive assessed 07/08/22 01/25/23 08:54 Const General: No confusion Orientation/consciousness: No confusion HENMT Head: Yes normocephalic and Yes atraumatic Eyes Conjunctivae: conjunctivae normal Chest Chest palpation & inspection: normal inspection of the chest Resp Effort & Inspection: normal respiratory effort Auscultation: clear to auscultation bilaterally, no crackles, no rhonchi and no wheezes Cardio Rate: regular rate Rhythm: regular rhythm Heart sounds: S1 normal heart sound present and S2 normal heart sound present Peripheral pulses: dorsalis pedis present GI Inspection: Yes normal to inspection Neuro General: No confusion Cranial nerves: Yes Normal hearing present Extrem General: No edema Right lower extremity: normal to inspection and full ROM Left lower extremity: normal to inspection, full ROM and ankle Details: normal to inspection; no tenderness, no swelling, no warmth and no ecchymosis; no edema Office Procedures Flu Questionnaire Does the patient have a severe egg allergy?: No Does the patient have severe life threatening allergies?: No Does the patient have a fever or illness today?: No Has the patient ever had Guillain-Ellinwood Syndrome?: No Has the patient ever had any past reaction to a flu shot?: No Immunizations flu vacc [id number] 6mos up(PF) 60 mcg(15 mcgx4)/0.5 mL IM syringe Performing Provider: JOSE C Armenta [facility] Documented (not given) by: SOLO Parekh on 01/25/23 08:54 Reason Not Given: Patient Refused Assessment and Plan Assessment & Plan (1) Impaired glucose tolerance: Code(s): R73.02 - Impaired glucose tolerance (oral) Plan: fasting glucose and hgb a1c ordered. Patient educated to decrease the amount of carbohydrate intake such as pasta, bread, rice and potatoes are all sugar in addition to the sweet stuff. Remember that fruits are good but they also have sugar. (2) Hypertension: Code(s): I10 - Essential (primary) hypertension Plan: Continue on metoprolol 75mg daily and amlodipine 5mg daily. Follow low salt diet and exercise. Plan Keep scheduled appoitnemnt with pcp in June. Orders: Orders Influenza [id number] Immunization Today Z23 - Encounter for immunization Vitamin B12 and Folate Today Z13.21 - Encounter for screening for nutritional disorder Complete Blood Count Auto Diff Today Z13.0 - Encounter for screening for diseases of the blood and blood-forming organs and certain disorders involving the immune mechanism Comprehensive [place]. Panel Fast Today I10 - Essential (primary) hypertension Hemoglobin A1c Today R73.02 - Impaired glucose tolerance (oral) Vitamin D 25-OH Total Today Z13.21 - Encounter for screening for nutritional disorder Lipid Panel Today Z13.220 - Encounter for screening for lipoid disorders TSH reflex Free T4 Today Z13.29 - Encounter for screening for other suspected endocrine disorder UA CC w/rflx Micro + Cult Today R30.0 - Dysuria Coding Level of Care Code Est Pt Level 3 (83398) Diagnoses Impaired glucose tolerance R73.02 Hypertension I10
[2023-01-25 08:51] VITALS: BP 132/80; PULSE 65; O2SAT 97; BMI 29.7
== END 2023-01-25 09:13 | disposition home or self-care (01) ==
PROVIDERS: PCP Internal Medicine; Visit Provider Nurse Practitioner Family
DX: R73.02 Impaired glucose tolerance (oral) (principal); I10 Essential (primary) hypertension; Z23 Encounter for immunization
CPT/HCPCS: 90471; 99213

== ENCOUNTER 2023-01-29 08:47 | Emergency (ER) | payer OTHER, SELFPAY ==
--- NOTE | 2023-01-29 08:51 | ED.CHESTPAIN ---
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 No nausea or dyspnea. No radiation to the pain. She was given 324mg of aspirin and a nitro which relieved the pain. It occurred at rest and started at 745. She tells me her pain is now 1 or 2/10 and she needs nothing else. No travel. It does remind her of her prior dissection. MD complaint: chest pain Pertinent past history: other (SCAD) Onset (ago): hour(s) (745am) Timing of current episode: now resolved Prior episodes: Yes Onset: during rest Pain location: substernal Pain radiation: none Severity: moderate Quality: heaviness Relieving factors: nitroglycerin Exacerbating factors: nothing Treatment prior to arrival: aspirin and nitroglycerin Related Data Home Medications Medication Instructions Recorded Confirmed ascorbate calcium (vitamin C) 500 500 mg PO DAILY 05/07/20 10/12/22 mg tablet cholecalciferol (vitamin D3) 25 25 mcg PO DAILY 05/07/20 10/12/22 mcg (1,000 unit) capsule magnesium 200 mg tablet 200 mg PO DAILY 01/25/23 Previous Rx's Medication Instructions Recorded amlodipine 5 mg tablet 5 mg PO DAILY 90 days #90 tabs 03/05/22 metoprolol succinate 25 mg 75 mg (3 x 25 mg) PO DAILY #270 03/05/22 tablet,extended release 24 hr tabs aspirin 81 mg tablet,delayed 81 mg PO DAILY #90 tabs 03/12/22 release (Adult Aspirin Regimen) Allergies Allergy/AdvReac Type Severity Reaction Status Date / Time naproxen Allergy Unknown Unknown Verified 01/25/23 08:50 perindopril Allergy Unknown Unknown Verified 01/25/23 08:50 atorvastatin AdvReac Intermediate myalgia Verified 01/25/23 08:50 lisinopril AdvReac Intermediate cough Verified 01/25/23 08:50 Review of Systems Review of Systems: Constitutional : No Weight loss, No Fever, No Chills ENT/Mouth : No sore throat, No Rhinorrhea Eyes: No Eye Pain, No Swelling Cardiovascular : pos Chest Pain, no SOB, no Dyspnea on Exertion, No Orthopnea, No Edema, No Palpitations Respiratory : No Cough, No Sputum Gastrointestinal : no Nausea, No Vomiting, No Diarrhea, No abdominal Pain, No Hematochezia, No Melena Genitourinary : No Dysuria, No Urinary Frequency Musculoskeletal : No joint pain, No Myalgias, No Joint Swelling Skin : No Skin Lesions, No rash Neuro : No Weakness, No Numbness, No Dizziness, No Headache Psych : No Anxiety/Panic, No Depression All other systems reviewed and are negative PMFSH Past Medical History Attestation statement: The following information was validated with the patient. Source: old records reviewed Medical History Breast cancer screening by mammogram Left nephrolithiasis Abnormal stress ECG with treadmill Chest pain Preoperative cardiovascular examination On beta jarrett at home Anemia Chest pain Splenic cyst Vasospastic angina Anxiety Renal calculi Thyroid nodule Hypertension Surgical History History of esophagogastroduodenoscopy (EGD) S/P cardiac catheterization History of lithotripsy History of total hysterectomy History of section Family History Family History Father Mouth cancer Mother T-cell lymphoma Hypertension Maternal Uncle Stomach cancer Paternal Aunt Stomach cancer Colon cancer Paternal Uncle Myocardial infarction Cancer of kidney Son No problems noted. Daughter No problems noted. Social History Social History Housing: House Alcohol intake: current Alcohol intake frequency: a few times a week Patient Tobacco Use Status: Never used Tobacco Smoked in Last 30 Days: No e-Cigarette/Vaping Use: Never Used Second Hand Smoke Exposure: No Use of substances other than those prescribed or required for medical reasons: No Advance Directives: No Advance Directives Information Provided: Yes Patient : No service: No Current occupational status: employed Current occupation: [employer], right handed Current occupational exposures/hazards: No Cognitive needs: No Hearing needs: No Vision needs: No Physical Exam Vital Signs: Vital Signs: Last Vital Signs Temp 98.1 F 01/29/23 09:02 Pulse 91 01/29/23 12:46 Resp 14 01/29/23 12:46 BP 151/76 H 01/29/23 12:46 Pulse Ox 98 01/29/23 12:46 O2 Del Method Room Air 01/29/23 12:46 BMI result Body Mass Index 30.3 Appearance: Alert. Oriented X3. No acute distress. Eyes: Pupils equal, round and reactive to light. ENT: Pharynx normal. Neck: Normal inspection. Neck supple. CVS: Normal heart rate and rhythm. Pulses normal. Respiratory: No respiratory distress. Breath sounds normal. Abdomen: Soft and nontender. Skin: Skin warm and dry. Normal skin color. Normal skin turgor. Extremities: No lower extremity edema. No calf ttp Neuro: Oriented X 3. No motor deficit. No sensory deficit. Course Course Course Narrative: repeat trop ordered has no pain currently BP stable 136/70 Reevaluation(s) Reevaluation #1: consult to cardiology heparin ordered - still pain free, VS stable, suspect this is another SCAD Reevaluation #2: call to [facility] for tranfser 1236pm Medications Administered Generic Name Dose Route Start Last Admin Trade Name Freq PRN Reason Stop Dose Admin Heparin Sodium/Sodium Chloride 25,000 unit in 250 mls @ 0 mls/hr 01/29/23 12:45 01/29/23 13:02 Heparin Sodium,Porcine/1/2ns IVCONT 12 units/kg/hr .Q0M FADIA 9.61 mls/hr Administration Protocol Per Protocol Discontinued Medications Generic Name Dose Route Start Last Admin Trade Name Freq PRN Reason Stop Dose Admin Heparin Sodium (Porcine) 4,000 unit 01/29/23 12:31 01/29/23 12:56 Heparin Sodium,Porcine 5,000 Unit/Ml Vial IVPUSH 01/29/23 12:32 4,000 unit ONCE ONE Administration Pravastatin Sodium 40 mg 01/29/23 12:45 01/29/23 12:56 Pravastatin Sodium 40 Mg Tablet PO 01/29/23 12:46 40 mg ONCE ONE Administration Medical Decision Making Medical Decision Making MDM Narrative: 57 yo female with PMH of HTN, abnormal exercise stress test 1mm ST depressions in V6 and inferior leads but normal nuclear portion 07/15 and in 2015 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 She states her pain is gone now and she does not need more medications. Her pulses are intact doubt aortic dissection, it is not pleuritic no calf pain no travel, no tachycardia or hypoxia to suggest DVT. EKG, CXR, troponin x 2. Differential Diagnosis Differential Diagnoses: The differential diagnosis associated with the presentation includes NSTEMI, ACS, atypical chest pain, SCAD Admission/Observation Consideration of admission/observation: Escalation of care including admission/observation considered transfer to center with PCI Consult Healthcare Provider Management of the patient was discussed with: [facility] [employer] (Dr. Willard - start heparin gtt and transfer) Dr. Chandler from [facility] - aware of heparin, start brilinta or plavix full loading dose, patinet on statin (has symptoms given only 40mg) and transfer patient, keep NPO which she has been due to possible cath today. Lab Data MDM Lab Attestation statement: I reviewed the patient's lab results. 01/29/23 09:21 01/29/23 09:21 Labs: Lab Results 01/29/23 01/29/23 Range/Units 09:21 11:50 WBC 4.6 L (4.8-10.8) X10*3/uL RBC 4.17 L (4.20-5.50) X10*6/uL Hgb 12.5 (12.0-16.0) g/dl Hct 37.2 (37.0-47.0) % MCV 89.2 (80.0-98.0) fL MCH 30.0 (27.0-33.0) pg MCHC 33.6 (31.0-35.0) g/dl RDW 12.8 (11.0-16.0) % Plt Count 293 (160-400) X10*3/uL MPV 9.3 L (9.4-12.3) fL Immature Gran % (Auto) 0.2 (0.0-0.4) % Neut % (Auto) 64.2 (45-73) % Lymph % (Auto) 25.5 (20-40) % [place] % (Auto) 6.8 (2-11) % Eos % (Auto) 2.0 (0-4) % Baso % (Auto) 1.3 (0-2) % Lymph # (Auto) 1.2 (1.2-4.9) X10*3/uL [place] # (Auto) 0.3 (0.1-1.2) X10*3/uL Eos # (Auto) 0.1 (0.0-0.4) X10*3/uL Baso # (Auto) 0.1 (0.0-0.2) X10*3/uL Abs Immat Gran (auto) 0.01 (0.00-0.03) X10*3/uL Absolute Neuts (auto) 3.0 (2.0-8.3) x10*3/uL Absolute Nucleated RBC 0.000 (0.0-0.012) X10*3/uL Nucleated RBC % (auto) 0.0 (0.0-0.2) /100WBC PT 11.0 L (11.1-13.3) SEC INR 0.9 (0.9-1.1) APTT 31.9 (26.0-36.4) SEC Sodium 142 (135-145) mmol/L Potassium 3.9 (3.3-5.1) mmol/L Chloride 109 H (96-108) mmol/L Carbon Dioxide 24 (22-29) mmol/L Anion Gap 13 (12-20) BUN 19 H (9-16) mg/dL Creatinine 0.72 (0.5-1.4) mg/dL Estim Creat Clear Calc 88.2 Estimated GFR > 60 Random Glucose 108 (60-115) mg/dL Calcium 9.2 (8.4-10.2) mg/dL Magnesium 2.0 (1.6-2.6) mg/dL Total Bilirubin 0.4 (0.0-1.0) mg/dL Direct Bilirubin 0.1 (0.0-0.5) mg/dL AST 16 (5-31) U/L ALT 15 (0-31) U/L Alkaline Phosphatase 56 (39-117) U/L Troponin I High Sens 33.4 H 792.8 H* D (<3.5-17.0) ng/L Total Protein 7.0 (6.5-8.0) g/dL Albumin 4.3 (3.5-5.0) g/dL Lipase 11 (8-78) U/L COVID-19 (PAUL) Negative (Negative) COVID-19 Clin Com See Note Independent Interpretation I performed an independent interpretation of an: EKG and Plain X-Ray Interpretation: Rate: 67 Rhythm: NSR [place]: normal Normal P waves. Normal ADELE. Normal QRS complex. ST T wave : normal no GERMAINE qTC: normal prior studies: no acute ischemia The study has been interpreted contemporaneously by me. . Radiology Impression Discussion of test interpretation with radiology: I have reviewed the radiologist's reading. Independent Historian Clinical information obtained from an independent historian. History obtained from or confirmed by: EMS External Record Review External record reviewed: Office record Critical Care Time Critical Care Time Critical Care Time: Yes Total Critical Care Time: 60 Attestation: medical consult, heparin, management of ACS vs SCAD, transfter to tertiary center I attest to this time spent taking care of the patient Discharge Plan Discharge Clinical Impression: Non-ST elevation RI (NSTEMI) Chest pain Qualifiers: Chest pain type: precordial pain Qualified Code(s): R07.2 - Precordial pain Patient Disposition: Xfer [facility] Hospital Transfer Details: [facility] Prescriptions: No Action cholecalciferol (vitamin D3) 25 mcg (1,000 unit) capsule 25 mcg PO DAILY ascorbate calcium (vitamin C) 500 mg tablet 500 mg PO DAILY metoprolol succinate 25 mg tablet extended release 24 hr 75 mg PO DAILY Qty: 270 3RF amlodipine 5 mg tablet 5 mg PO DAILY 90 Days Qty: 90 3RF magnesium 200 mg tablet 200 mg PO DAILY aspirin [Adult Aspirin Regimen] 81 mg tablet,delayed release (DR/EC) 81 mg PO DAILY Qty: 90 4RF
[2023-01-29 09:02] VITALS: BP 128/72; BP 142/77; PULSE 67; PULSE 86; RESP 10; TEMP 36.7; O2SAT 95; O2SAT 96; BMI 30.3
[2023-01-29 09:27] LABS: MANUAL DIFF FLAG NO
[2023-01-29 09:28] LABS: Basophils Absolute Auto 0.1 X10*3/uL (0.0-0.2); Basophils Percent Auto 1.3 % (0-2); Eosinophils Absolute Auto 0.1 X10*3/uL (0.0-0.4); Hematocrit 37.2 % (37.0-47.0); Hemoglobin 12.5 g/dl (12.0-16.0); Imm Gran Abs Auto 0.01 X10*3/uL (0.00-0.03); Imm Gran Pct Auto 0.2 % (0.0-0.4); Lymphocytes Absolute Auto 1.2 X10*3/uL (1.2-4.9); Lymphocytes Percent Auto 25.5 % (20-40); Mean Corpuscular HGB Conc 33.6 g/dl (31.0-35.0); Mean Corpuscular Volume 89.2 fL (80.0-98.0); Mean Platelet Volume 9.3 fL (9.4-12.3); Monocytes Absolute Auto 0.3 X10*3/uL (0.1-1.2); Monocytes Percent Auto 6.8 % (2-11); Neutrophils Percent Auto 64.2 % (45-73); Platelet Count 293 X10*3/uL (160-400); Red Blood Count 4.17 X10*6/uL (4.20-5.50); Red Cell Distribution Width 12.8 % (11.0-16.0); White Blood Count 4.6 X10*3/uL (4.8-10.8)
[2023-01-29 09:45] LABS: Alanine Aminotransferase 15 U/L (0-31); Albumin Level 4.3 g/dL (3.5-5.0); Alkaline Phosphatase 56 U/L (39-117); Anion Gap 13 (12-20); Aspartate Amino Transferase 16 U/L (5-31); Bilirubin Direct 0.1 mg/dL (0.0-0.5); Bilirubin Total 0.4 mg/dL (0.0-1.0); Blood Urea Nitrogen 19 mg/dL (9-16); Calcium 9.2 mg/dL (8.4-10.2); Carbon Dioxide 24 mmol/L (22-29); Chloride 109 mmol/L (96-108); Creatinine Clr Calc Pharmacy 88.2; Estimated Glomerular Filt Rate > 60; Glucose Random 108 mg/dL (60-115); Lipase 11 U/L (8-78); Potassium 3.9 mmol/L (3.3-5.1); Sodium 142 mmol/L (135-145)
[2023-01-29 09:49] LABS: INTERNATIONAL NORM RATIO 0.9 (0.9-1.1)
[2023-01-29 10:09] LABS: Partial Thromboplastin Time 31.9 SEC (26.0-36.4)
[2023-01-29 10:38] VITALS: BP 136/70; PULSE 75; RESP 15; O2SAT 97
[2023-01-29 12:46] VITALS: BP 151/76; PULSE 91; RESP 14; O2SAT 98
[2023-01-29 13:32] VITALS: BP 137/68; PULSE 83; RESP 16; O2SAT 96
--- NOTE | 2023-01-29 13:52 | MHC.EDTECH ---
TEO FROM [facility] CALLED WITH BED ASSIGNMENT FOR PT. PT GOING TO [place] [address] ROOM 5124. ACCEPTING PROVIDER IS .
--- NOTE | 2023-01-29 14:08 | MHC.EDTECH ---
SHANTELL FROM [facility] SAID ETA WOULD BE [address]PM. DR RICKS WOULD LIKE TO TRY ANOTHER AMBULANCE [facility] ETA IS NOT A GOOD TIME.
--- NOTE | 2023-01-29 14:12 | MHC.EDTECH ---
SPOKE TO VANE AT [place] WHO WAS ABLE TO GET A [facility] AMBULANCE FOR ETA OF 1530.
--- NOTE | 2023-01-29 14:36 | MHC.EDTECH ---
RUN NUMBER FOR [facility] #[id number]. SPOKE TO SHANTELL AT [facility] WHO WAS ABLE TO GET THE RUN NUMBER. PT WILL BE TRANSFERRED TO [facility] VIA MARGARETH.
--- NOTE | 2023-01-29 14:49 | PC.NURSE ---
report given to [facility]
== END 2023-01-29 15:05 | disposition short-term general hospital (02) ==
PROVIDERS: Emergency Provider Emergency Medicine; PCP Internal Medicine
DX: I21.4 Non-ST elevation (NSTEMI) myocardial infarction (principal); R07.2 Precordial pain; I10 Essential (primary) hypertension; Z79.02 Long term (current) use of antithrombotics/antiplatelets; Z11.52 Encounter for screening for COVID-19
CPT/HCPCS: 36415; 71045; 80048; 80076; 83690; 83735; 84484; 85025; 85610; 85730; 87635; 93005; 96374; 96376; 99285; J1643

== ENCOUNTER 2023-02-17 13:31 | Outpatient (AMB) | payer OTHER, SELFPAY ==
--- NOTE | 2023-02-17 13:34 | A.OFFVIS_ITS ---
Intake Vital Signs 02/17/23 13:37 Height 5 ft 4 in Weight 171 lb 15.369 oz BMI 29.5 BP 126/84 Blood Pressure Location Lt brachial Position Sitting Pulse 68 Intake Visit Reasons: ED follow up/CP Intake Note: ED follow up Stock Manager Required: No Accompanied by: Self / Same As Patient Allergies naproxen Allergy (Unknown, Verified 02/17/23 13:37) Unknown perindopril Allergy (Unknown, Verified 02/17/23 13:37) Unknown atorvastatin Adverse Reaction (Intermediate, Verified 02/17/23 13:37) myalgia lisinopril Adverse Reaction (Intermediate, Verified 02/17/23 13:37) cough Medication List - Last Reconciled 02/17/23 by Oscar Cyr MD amlodipine 5 mg PO DAILY 90 days ascorbate calcium (vitamin C) 500 mg PO DAILY aspirin (Adult Aspirin Regimen) 81 mg PO DAILY cholecalciferol (vitamin D3) 25 mcg PO DAILY magnesium 200 mg PO DAILY metoprolol succinate ER 75 mg (3 x 25 mg) PO DAILY HPI HPI Comments History of Present Illness Details 57-year-old female here for follow-up. She had inferior ST elevations and 2016 and presented with central chest discomfort. She was taken for cardiac catheterization which showed some concern about dissection in a small right posterolateral branch. 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 She has done well since then. Recently she complained of upper back discomfort to Dr. Pascal. This was quite random and happen at rest and with activities. She underwent stress testing. She initially had exercise stress tests where she was able to exercise for 10.1 Mets and EKG met criteria for ischemia with [address] depressions in V6 and inferior leads. She did not have any chest discomfort or back discomfort during exercise and stop because of fatigue. Subsequent to that she had stress Mibi where again she was able to exercise for 10.4 metabolic equivalents and had ischemic changes similar to before. Nuclear imaging was normal. She did not have any symptoms during stress tests in given normal perfusion imaging we decided to medically treat her and now perform any further invasive assessment. She has been stable and has no chest discomfort back issues. On follow-up today she is doing well. She has no chest discomfort or shortness of breath. Taking medications regularly. She has some questions about her blood pressure being slightly low. She was in [employer] and checked her blood pressure and was 106/60. She said she did not have any dizziness or lightheadedness at that time. Denying any similar symptoms now too. 02/17/23: She returns for follow-up. S he recently got admitted to [facility] because she had chest discomfort and ruled in for NSTEMI. She underwent cardiac catheterization which showed normal coronary arteries without any significant coronary disease and in fact her RPL branch which was previously dissected in 2016 was also normal appearing. It was felt that her blood pressure was high and maybe she had a type 2 injury to to high blood pressure. She returns for follow-up and is denying any significant issues. She is single blood pressure has been well controlled at home. She is taking medication regularly. No [id number] medications specifically no decongestants used. [facility] Medical History Breast cancer screening by mammogram Left nephrolithiasis Abnormal stress ECG with treadmill Chest pain Preoperative cardiovascular examination On beta jarrett at home Anemia Chest pain Splenic cyst Vasospastic angina Anxiety Renal calculi Thyroid nodule Hypertension Surgical History History of esophagogastroduodenoscopy (EGD) S/P cardiac catheterization History of lithotripsy History of total hysterectomy History of section Family History Father Mouth cancer Mother T-cell lymphoma Hypertension Maternal Uncle Stomach cancer Paternal Aunt Stomach cancer Colon cancer Paternal Uncle Myocardial infarction Cancer of kidney Son No problems noted. Daughter No problems noted. Social History Housing: House Alcohol intake: current Alcohol intake frequency: a few times a week Patient Tobacco Use Status: Never used Tobacco e-Cigarette/Vaping Use: Never Used Second Hand Smoke Exposure: No service: No Current occupational status: employed Current occupation: liquor store, right handed Current occupational exposures/hazards: No Cognitive needs: No Hearing needs: No Vision needs: No Review of Systems Const Denies weakness ENT Denies dizziness Card Denies chest pain, Denies chest pain with activity, Denies syncope, Denies rapid heart rate, Denies pedal edema, Denies edema, Denies leg edema, Denies lightheadedness, Denies palpitations, Denies dyspnea, Denies dyspnea on exertion and Denies orthopnea Resp Denies cough, Denies dyspnea and Denies dyspnea on exertion GI Denies hematochezia and Denies change in stool character Musc Denies abnormal gait, Denies muscle cramps, Denies muscle weakness, Denies numbness, Denies radiating pain into limb and Denies tingling Neuro Denies abnormal gait, Denies dizziness, Denies syncope, Denies numbness, Denies tingling and Denies weakness Endo Denies palpitations Physical Exam Vital Signs: Last Vital Signs Pulse 68 02/17/23 13:37 BP 126/84 02/17/23 13:37 BMI result Body Mass Index 29.5 GENERAL APPEARANCE: in no acute distress, pleasant. NECK: no carotid bruit, no jugular venous distention. SKIN: no suspicious lesions, warm and dry. HEART: no murmurs, regular rate and rhythm. LUNGS: clear to auscultation bilaterally. ABDOMEN: soft, nontender. EXTREMITIES: no edema. PERIPHERAL PULSES: equal. NEUROLOGIC: No gross deficits, AAO X 3 Assessment & Plan Assessment & Plan (1) Spontaneous dissection of coronary artery: Comment: STEMI with right posterolateral branch dissection in 2012, no statins needed Code(s): I25.42 - Coronary artery dissection (2) Non-ST elevation ID (NSTEMI): Code(s): I21.4 - Non-ST elevation (NSTEMI) myocardial infarction (3) Hypertension: Code(s): I10 - Essential (primary) hypertension Plan Pleasant 57 year female who is here for follow-up. She has history of spontaneous coronary artery dissection diagnosed in 2015 and presentation 12/13/2022 to [facility] with chest discomfort and NSTEMI. This was felt to be a type 2 injury due to elevated blood pressure as her cardiac catheterization did not show any issues. Other possibility can be coronary vasospasm which is not uncommon in patient with previous CAD. Her blood pressure is well controlled currently. There is some concern about episode rise in blood pressure leading to NSTEMI. She is not acting like pheochromocytoma. After discussion I have referred her to endocrinology for further workup. She will continue to monitor blood pressure and will reach out to us if her blood pressure is elevated. Thank you for allowing me to participate in the care of your patient. Please feel free to contact me if you have any questions. Orders: Referrals Endocrinology Referral I10 - Essential (primary) hypertension Medications: New metoprolol succinate ER (Toprol XL) 100 mg PO DAILY 90 tabs 3RF Discontinued metoprolol succinate ER Discontinued Reason: None 75 mg (3 x 25 mg) PO DAILY 270 tabs 3RF I10 - Essential (primary) hypertension Coding Level of Care Code Est Pt Level 4 (01926) Diagnoses Spontaneous dissection of coronary artery I25.42 Non-ST elevation ID (NSTEMI) I21.4 Hypertension I10
[2023-02-17 13:37] VITALS: BP 126/84; PULSE 68; BMI 29.5
== END 2023-02-17 14:05 | disposition home or self-care (01) ==
PROVIDERS: PCP Internal Medicine; Visit Provider Internal Medicine Cardiovascular Disease
DX: I25.42 Coronary artery dissection (principal); I21.4 Non-ST elevation (NSTEMI) myocardial infarction; I10 Essential (primary) hypertension
CPT/HCPCS: 99214

== ENCOUNTER → 2023-02-17 13:31 | Outpatient (BNVA) | payer OTHER, SELFPAY | PROVIDERS: PCP Internal Medicine; Visit Provider Internal Medicine Cardiovascular Disease ==

== ENCOUNTER 2023-03-29 09:32 | Outpatient (AMB) | payer OTHER, SELFPAY ==
--- NOTE | 2023-03-29 09:37 | A.OFFVIS_ITS ---
Intake Vital Signs 03/29/23 09:38 Height 5 ft 4 in Weight 176 lb 5.917 oz BMI 30.3 BP 130/70 Blood Pressure Location Lt brachial Position Sitting Pulse 68 Pulse Source Pulse Oximeter Intake Visit Reasons: 6 mth f/up Intake Note: 6 mth f/up patient its fine Photo Equipment Technician Required: No Accompanied by: Self / Same As Patient Allergies naproxen Allergy (Unknown, Verified 03/29/23 09:41) Unknown perindopril Allergy (Unknown, Verified 03/29/23 09:41) Unknown atorvastatin Adverse Reaction (Intermediate, Verified 03/29/23 09:41) myalgia lisinopril Adverse Reaction (Intermediate, Verified 03/29/23 09:41) cough Medication List - Last Reconciled 03/29/23 by Oscar Cyr MD amlodipine 5 mg PO DAILY 90 days ascorbate calcium (vitamin C) 500 mg PO DAILY aspirin (Adult Aspirin Regimen) 81 mg PO DAILY cholecalciferol (vitamin D3) 25 mcg PO DAILY magnesium 200 mg PO DAILY metoprolol succinate ER (Toprol XL) 100 mg PO DAILY HPI HPI Comments History of Present Illness Details 58-year-old female here for follow-up. She had inferior ST elevations and 2016 and presented with central chest discomfort. She was taken for cardiac catheterization which showed some concern about dissection in a small right posterolateral branch. 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 She has done well since then. Recently she complained of upper back discomfort to Dr. Pascal. This was quite random and happen at rest and with activities. She underwent stress testing. She initially had exercise stress tests where she was able to exercise for 10.1 Mets and EKG met criteria for ischemia with [address] depressions in V6 and inferior leads. She did not have any chest discomfort or back discomfort during exercise and stop because of fatigue. Subsequent to that she had stress Mibi where again she was able to exercise for 10.4 metabolic equivalents and had ischemic changes similar to before. Nuclear imaging was normal. She did not villa ve any symptoms during stress tests in given normal perfusion imaging we decided to medically treat her and now perform any further invasive assessment. She has been stable and has no chest discomfort back issues. On follow-up today she is doing well. She has no chest discomfort or shortness of breath. Taking medications regularly. She has some questions about her blood pressure being slightly low. She was in [place] and checked her blood pressure and was 106/60. She said she did not have any dizziness or lightheadedness at that time. Denying any similar symptoms now too. 02/17/23: She returns for follow-up. S he recently got admitted to [facility] because she had chest discomfort and ruled in for NSTEMI. She underwent cardiac catheterization which showed normal coronary arteries without any significant coronary disease and in fact her RPL branch which was previously dissected in 2016 was also normal appearing. It was felt that her blood pressure was high and maybe she had a type 2 injury to to high blood pressure. She returns for follow-up and is denying any significant issues. She is single blood pressure has been well controlled at home. She is taking medication regularly. No [id number] medications specifically no decongestants used. 03/29/23: She returns for f/u. She has b een doing well. Occasionally gets achiness on the chest which improves with movement. No chest pains like before. Blood pressure is controlled. Taking medications regularly. She has not seen Endocrinology yet yet. She is asking about alcohol intake and we discussed in detail about moderate alcohol intake. [facility] Medical History Breast cancer screening by mammogram Left nephrolithiasis Abnormal stress ECG with treadmill Chest pain Preoperative cardiovascular examination On beta jarrett at home Anemia Chest pain Splenic cyst Vasospastic angina Anxiety Renal calculi Thyroid nodule Hypertension Surgical History History of esophagogastroduodenoscopy (EGD) S/P cardiac catheterization History of lithotripsy History of total hysterectomy History of section Family History Father Mouth cancer Mother T-cell lymphoma Hypertension Maternal Uncle Stomach cancer Paternal Aunt Stomach cancer Colon cancer Paternal Uncle Myocardial infarction Cancer of kidney Son No problems noted. Daughter No problems noted. Social History Housing: House Alcohol intake: current Alcohol intake frequency: a few times a week Patient Tobacco Use Status: Never used Tobacco e-Cigarette/Vaping Use: Never Used Second Hand Smoke Exposure: No service: No Current occupational status: employed Current occupation: liquor store, right handed Current occupational exposures/hazards: No Cognitive needs: No Hearing needs: No Vision needs: No Review of Systems Const Reports chills, Reports fatigue, Reports fever(s), Reports frequent falls, Reports weakness, Reports weight gain and Reports weight loss ENT Reports dizziness Card Reports chest pain, Reports leg edema, Reports lightheadedness, Reports palpitations, Reports dyspnea and Reports dyspnea on exertion Resp Reports cough, Reports dyspnea and Reports dyspnea on exertion GI Reports hematochezia Musc Reports abnormal gait, Reports muscle weakness, Reports numbness, Reports radiating pain into limb and Reports tingling Neuro Reports abnormal gait, Reports dizziness, Reports frequent falls, Reports numbness, Reports tingling and Reports weakness Endo Reports fatigue and Reports palpitations Physical Exam Vital Signs: BMI result Body Mass Index 30.3 GENERAL APPEARANCE: in no acute distress, pleasant. NECK: no carotid bruit, no jugular venous distention. SKIN: no suspicious lesions, warm and dry. HEART: no murmurs, regular rate and rhythm. LUNGS: clear to auscultation bilaterally. ABDOMEN: soft, nontender. EXTREMITIES: no edema. PERIPHERAL PULSES: equal. NEUROLOGIC: No gross deficits, AAO X 3 Assessment & Plan Assessment & Plan (1) Hypertension: Code(s): I10 - Essential (primary) hypertension (2) Spontaneous dissection of coronary artery: Comment: STEMI with right posterolateral branch dissection in 2012, no statins needed Code(s): I25.42 - Coronary artery dissection (3) Non-ST elevation PA (NSTEMI): Code(s): I21.4 - Non-ST elevation (NSTEMI) myocardial infarction Plan Pleasant 58 year female who is here for follow-up. She has history of spontaneous coronary artery dissection diagnosed in 2016 and presentation 12/13/2022 to [facility] with chest discomfort and NSTEMI. This was felt to be a type 2 injury due to elevated blood pressure as her cardiac catheterization did not show any issues. Other possibility can be coronary vasospasm which is not uncommon in patient with previous CAD. Her blood pressure is well controlled currently. There is some concern about episode rise in blood pressure leading to NSTEMI. She is not acting like pheochromocytoma. After discussion I have referred her to endocrinology for further workup. She has been monitoring her blood pressure at home and has been stable. We discussed about alcohol intake, I have advised her to drink on special occasions and drink cautiously. Thank you for allowing me to participate in the care of your patient. Please feel free to contact me if you have any questions. Orders: Referrals Endocrinology Referral I10 - Essential (primary) hypertension Coding Level of Care Code Est Pt Level 4 (83695) Diagnoses Hypertension I10 Spontaneous dissection of coronary artery I25.42 Non-ST elevation PA (NSTEMI) I21.4
[2023-03-29 09:38] VITALS: BP 130/70; PULSE 68; BMI 30.3
== END 2023-03-29 10:17 | disposition home or self-care (01) ==
PROVIDERS: Visit Provider Internal Medicine Cardiovascular Disease
DX: I10 Essential (primary) hypertension (principal); I25.42 Coronary artery dissection; I21.4 Non-ST elevation (NSTEMI) myocardial infarction
CPT/HCPCS: 99214

== ENCOUNTER → 2023-03-29 09:32 | Outpatient (BNVA) | payer OTHER, SELFPAY | PROVIDERS: Visit Provider Internal Medicine Cardiovascular Disease ==

== ENCOUNTER 2023-07-14 09:13 | Outpatient (AMB) | payer OTHER, SELFPAY ==
--- NOTE | 2023-07-14 09:14 | MHC.PC.OV ---
Vital Signs 07/14/23 09:15 Height 5 ft 4 in Weight 173 lb 0.6 oz BMI 29.7 BP 130/86 Blood Pressure Location Lt brachial Position Sitting Pulse 68 Pulse Source Pulse Oximeter Pulse Oximetry (%) 98 Oxygen Delivery Method Room Air Intake Visit Reasons: Annual exam Business Administrator Required: No Allergies naproxen Allergy (Unknown, Verified 07/14/23 09:15) Unknown perindopril Allergy (Unknown, Verified 07/14/23 09:15) Unknown atorvastatin Adverse Reaction (Intermediate, Verified 07/14/23 09:15) myalgia lisinopril Adverse Reaction (Intermediate, Verified 07/14/23 09:15) cough Medication List - Last Reconciled 07/14/23 by Tamy Pascal MD amlodipine 5 mg PO DAILY 90 days ascorbate calcium (vitamin C) 1 g PO DAILY aspirin 81 mg PO DAILY cholecalciferol (vitamin D3) 25 mcg PO DAILY magnesium 200 mg PO DAILY metoprolol succinate ER (Toprol XL) 100 mg PO DAILY Tobacco use date assessed: 07/14/23 Dental Screening Dental Screen Date: 07/14/23 Did you have a dental visit in the last 12 months?: Yes Did you have a dental problem in the last 6 months where you did not have access to dental care?: No Was dental information given to patient?: Patient has dentist HPI Annual exam HPI Details 58-year-old overweight female with impaired glucose tolerance and hypertension last seen in January 2023. Patient is here for physical exam. Review of the notes patient had an echocardiogram done in January 2023 showing left ventricular size is normal left ventricular wall thickness is mildly increased systolic function normal EF 55-60% no motion abnormalities right side normal patient had labs done in April 2023 review of the notes from Endocrinology due to the hypertension endocrine causes negative advised sleep study and renal ultrasound.. Patient did have a catheterization done January 2023 indicating type 2 and STEMI due to hypotension on presentation minimal luminal irregularities LMCA lad left circumflex RCA no obvious area of culprit lesion patient had a spontaneous coronary artery dissection and had advised increase metoprolol 100 mg once a day amlodipine 5 mg once a day review of the notes has had ultrasound of the thyroid also done June 2022 showing bilateral simple and colloid cyst less than 1 cm no suspicious thyroid nodule patient also sees Orthopedics for right shoulder pain diagnosis of impingement of the right shoulder advised physical therapy and x-ray [facility] Medical History (Updated 07/14/23 @ 09:55 by Tamy Pascal MD) Breast cancer screening by mammogram Left nephrolithiasis Abnormal stress ECG with treadmill Chest pain Preoperative cardiovascular examination On beta jarrett at home Anemia Chest pain Splenic cyst Vasospastic angina Anxiety Renal calculi Thyroid nodule Hypertension Surgical History History of esophagogastroduodenoscopy (EGD) S/P cardiac catheterization History of lithotripsy History of total hysterectomy History of section Family History Father Mouth cancer Mother T-cell lymphoma Hypertension Maternal Uncle Stomach cancer Paternal Aunt Stomach cancer Colon cancer Paternal Uncle Myocardial infarction Cancer of kidney Son No problems noted. Daughter No problems noted. Social History (Updated 07/14/23 @ 09:42 by Tamy Pascal MD) Housing: House Alcohol intake: current Alcohol intake frequency: a few times a week Comment: once a week 1 glass - 2 glass Patient Tobacco Use Status: Never used Tobacco e-Cigarette/Vaping Use: Never Used Second Hand Smoke Exposure: No service: No Current occupational status: employed Current occupation: liquor store, right handed Current occupational exposures/hazards: No Cognitive needs: No Hearing needs: No Vision needs: No Questionnaire PHQ-9 Over the last 2 weeks, how often have you been bothered by any of the following problems? 1. Little interest or pleasure in doing things: not at all 2. Feeling down, depressed, or hopeless: not at all 3. Trouble falling or staying asleep, or sleeping too much: not at all 4. Feeling tired or having little energy: not at all 5. Poor appetite or overeating: not at all 6. Feeling bad about yourself - or that you are a failure or have let yourself or your family down: not at all 7. Trouble concentrating on things, such as reading the newspaper or watching television: not at all 8. Moving or speaking so slowly that other people could have noticed. Or the opposite - being so fidgety or restless that you have been moving around a lot more than usual: not at all 9. Thoughts that you would be better off or of hurting yourself in some way: not at all Total score: 0 Depression Screening Interpretation: Negative Depression Screening Done: Yes Source: Developed by Drs. Benito Dowell, Yris Smith, Mazin Gutierrez and colleagues, with an educational jodie from [employer]. Thrive Questionnaire Date Thrive assessed: 07/08/22 AUDIT C Alcohol Use Questionnaire (AUDIT-C) 1. How often do you have a drink containing alcohol?: Monthly or less 2. How many drinks containing alcohol do you have on a typical day when you are drinking?: 1 or 2 3. How often do you have six or more drinks on one occasion?: Never Total Score: 1 Score Reviewed/Action Taken: No ARIES-7 AMB Questionnaire ARIES-7 Date ARIES - 7 assessed: 07/14/23 Feeling nervous, anxious, or on edge: 0 = Not at all Not being able to stop or control worryin = Not at all Worrying too much about different things: 0 = Not at all Trouble relaxin = Not at all Being so restless that it is hard to sit still: 0 = Not at all Becoming easily annoyed or irritable: 0 = Not at all Feeling afraid as if something awful might happen: 0 = Not at all Total ARIES-7 score (0-4 normal; 5-9 mild; 10-14 moderate; 15-21 severe): 0 Source: Developed by Drs. Benito Dowell, Mazin Mcconnell and colleagues, with an educational jodie from [employer]. Review of Systems Const Denies poor appetite and Denies weakness Eyes Denies no additional complaints ENT Reports Normal hearing present, Denies dizziness, Denies nasal congestion, Denies tinnitus and Denies sore throat Card Denies chest pain, Denies syncope, Denies rapid heart rate and Denies dyspnea Resp Denies cough and Denies dyspnea GI Denies change in stool character, Reports constipation, Denies diarrhea, Denies nausea and Denies vomiting Denies urinary frequency, Denies difficulty voiding and Denies dysuria Neuro Reports Normal hearing present, Denies confusion, Denies dizziness, Denies syncope and Denies weakness Psych Denies confusion Physical exam (Primary Care) Vital Signs: Last Vital Signs Pulse 68 07/14/23 09:15 BP 130/86 07/14/23 09:15 Pulse Ox 98 07/14/23 09:15 Oxygen Delivery Method Room Air 07/14/23 09:15 BMI result Body Mass Index 29.7 Tobacco/Smoking Status: Tobacco use Status Tobacco use date assessed 07/14/23 07/14/23 09:21 Patient Tobacco Use Status Never used Tobacco 07/14/23 09:21 e-Cigarette/Vaping Use Never Used 07/14/23 09:21 PHQ-9: PHQ-9 Score PHQ-9: Total score 0 07/14/23 09:35 Depression Screening Interpretation: Negative Thrive Assessment: Date of Thrive Assessment Date Thrive assessed 07/08/22 07/14/23 09:21 Const General: alert and awake; No confusion Orientation/consciousness: No confusion HENMT Head: Yes normocephalic Ears: external ears normal and TM's normal bilaterally Face and sinus: Yes normal facial exam Mouth: moist mucous membranes Throat: Yes tonsils normal Eyes Conjunctivae: conjunctivae normal Pupils: Equal, round and reactive pupils present and Pupil accommodation reflex normal Direct Ophthalmoscopy: normal light reflex Neck Neck: No lymphadenopathy Thyroid: Thyroid normal Chest Chest palpation & inspection: normal inspection of the chest Resp Effort & Inspection: normal respiratory effort and no audible wheezes Auscultation: clear to auscultation bilaterally, no crackles, no wheezes and lung sounds not diminished Cardio Rate: regular rate Rhythm: regular rhythm Peripheral pulses: radial pulses present and dorsalis pedis present GI Palpation (GI): no masses Auscultation: normal bowel sounds and normoactive bowel sounds Rectal Exam - Female: deferred Skin General skin exam: no rashes or lesions noted Rashes: no rashes Neuro General: deep tendon reflexes 2+ bilaterally and No confusion Cranial nerves: Yes Equal, round and reactive pupils present, Yes Midline tongue present, Yes Normal hearing present and Yes Ability to bilaterally elevate shoulders present Cognition (Neuro): normal cognition Gait exam (Neuro): Normal gait present Motor exam (neuro): 5/5 motor strength present throughout Deep tendon reflexes (DTR's): Right brachioradialis reflex intensity grade: 2+, Left brachioradialis reflex intensity grade: 2+, Right patellar reflex intensity grade: 2+ and Left patellar reflex intensity grade: 2+ Extrem General: No edema Assessment and Plan Assessment & Plan (1) Annual physical exam: Code(s): Z00.00 - Encounter for general adult medical examination without abnormal findings (2) 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 Had coronary artery catheterization late last year negative (3) Hypertension: Code(s): I10 - Essential (primary) hypertension Plan: Continue with blood pressure medication. Decrease salt intake and exercise continue with metoprolol XL 100 mg once a day and amlodipine 5 mg once a day (4) Generalized anxiety disorder: Code(s): F41.1 - Generalized anxiety disorder Plan: Stable (5) Impaired glucose tolerance: Code(s): R73.02 - Impaired glucose tolerance (oral) Plan: Decrease the amount of carbohydrate intake, pasta, bread, rice and potatoes are all sugar and that is aside from all the sweet stuff, remember that fruits are good but they are Sweet also. (6) Impingement of right shoulder: Code(s): M25.811 - Other specified joint disorders, right shoulder Plan: Patient has seen Orthopedics and planned physical therapy. (7) Breast cancer screening by mammogram: Code(s): Z12.31 - Encounter for screening mammogram for malignant neoplasm of breast (8) Shoulder pain, right: Code(s): M25.511 - Pain in right shoulder (9) Bilateral thigh pain: Code(s): M79.651 - Pain in right thigh; M79.652 - Pain in left thigh Orders: Orders MM tomosynthesis screening BI Today Z12.31 - Encounter for screening mammogram for malignant neoplasm of breast MR shoulder RT wo con Today M25.511 - Pain in right shoulder Complete Blood Count Auto Diff Today Z13.0 - Encounter for screening for diseases of the blood and blood-forming organs and certain disorders involving the immune mechanism TSH reflex Free T4 Today Z13.29 - Encounter for screening for other suspected endocrine disorder Vitamin D 25-OH Total Today Z13.21 - Encounter for screening for nutritional disorder Erythrocyte Sedimentation Rate Today M79.651 - Pain in right thigh, M79.652 - Pain in left thigh C Reactive Protein Today M79.651 - Pain in right thigh, M79.652 - Pain in left thigh RT home sleep study Today I25.42 - Coronary artery dissection US pelvic ovarian doppler Today I25.42 - Coronary artery dissection US renal BI Today I25.42 - Coronary artery dissection Comprehensive [place]. Panel Fast Today I10 - Essential (primary) hypertension Lipid Panel Today Z13.220 - Encounter for screening for lipoid disorders UA CC w/rflx Micro + Cult Today R30.0 - Dysuria Vitamin B12 and Folate Today Z13.21 - Encounter for screening for nutritional disorder Coding Level of Care Code Est Pt Prev Care 40-64y([id number]) Diagnoses Annual physical exam Z00.00 Spontaneous dissection of coronary artery I25.42 Hypertension I10 Generalized anxiety disorder F41.1 Impaired glucose tolerance R73.02 Impingement of right shoulder M25.811 Breast cancer screening by mammogram Z12.31 Shoulder pain, right M25.511 Bilateral thigh pain M79.651; M79.652
[2023-07-14 09:15] VITALS: BP 130/86; PULSE 68; O2SAT 98; BMI 29.7
== END 2023-07-14 10:06 | disposition home or self-care (01) ==
PROVIDERS: Visit Provider Internal Medicine
DX: Z00.00 Encounter for general adult medical examination without abnormal findings (principal); I25.42 Coronary artery dissection; I10 Essential (primary) hypertension; F41.1 Generalized anxiety disorder; R73.02 Impaired glucose tolerance (oral); M25.811 Other specified joint disorders, right shoulder; Z12.31 Encounter for screening mammogram for malignant neoplasm of breast; M25.511 Pain in right shoulder; M79.651 Pain in right thigh; M79.652 Pain in left thigh
CPT/HCPCS: 99396

== ENCOUNTER 2023-07-26 11:16 | Outpatient (AMB) | payer OTHER, SELFPAY ==
[2023-07-26 11:24] VITALS: BP 130/70; PULSE 65; BMI 29.7
--- NOTE | 2023-07-26 11:24 | A.OFFVIS_ITS ---
Intake Vital Signs 07/26/23 11:24 Height 5 ft 4 in Weight 173 lb 4.533 oz BMI 29.7 BP 130/70 Blood Pressure Location Lt brachial Position Sitting Pulse 65 Pulse Source Pulse Oximeter Intake Visit Reasons: 3 mth f/up pt wanted am Intake Note: pt its here for 3 mth f/up/ pt states that she its doing fine. Safety Manager Required: No Accompanied by: Self / Same As Patient Allergies naproxen Allergy (Unknown, Verified 07/14/23 09:15) Unknown perindopril Allergy (Unknown, Verified 07/14/23 09:15) Unknown atorvastatin Adverse Reaction (Intermediate, Verified 07/14/23 09:15) myalgia lisinopril Adverse Reaction (Intermediate, Verified 07/14/23 09:15) cough Medication List - Last Reconciled 07/26/23 by Oscar Cyr MD amlodipine 5 mg PO DAILY 90 days ascorbate calcium (vitamin C) 1 g PO DAILY aspirin 81 mg PO DAILY cholecalciferol (vitamin D3) 25 mcg PO DAILY magnesium 200 mg PO DAILY metoprolol succinate ER (Toprol XL) 100 mg PO DAILY HPI HPI Comments History of Present Illness Details 58-year-old female here for follow-up. She had inferior ST elevations and 2016 and presented with central chest discomfort. She was taken for cardiac catheterization which showed some concern about dissection in a small right posterolateral branch. 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 She has done well since then. Recently she complained of upper back discomfort to Dr. Pascal. This was quite random and happen at rest and with activities. She underwent stress testing. She initially had exercise stress tests where she was able to exercise for 10.1 Mets and EKG met criteria for ischemia with [address] depressions in V6 and inferior leads. She did not have any chest discomfort or back discomfort during exercise and stop because of fatigue. Subsequent to that she had stress Mibi where again she was able to exercise for 10.4 metabolic equivalents and had ischemic changes similar to before. Nuclear imaging was normal. She did not have any symptoms during stress tests in given normal perfusion imaging we decided to medically treat her and now perform any further invasive assessment. She has been stable and has no chest discomfort back issues. On follow-up today she is doing well. She has no chest discomfort or shortness of breath. Taking medications regularly. She has some questions about her blood pressure being slightly low. She was in [place] and checked her blood pressure and was 106/60. She said she did not have any dizziness or lightheadedness at that time. Denying any similar symptoms now too. 02/17/23: She returns for follow-up. S he recently got admitted to [facility] because she had chest discomfort and ruled in for NSTEMI. She underwent cardiac catheterization which showed normal coronary arteries without any significant coronary disease and in fact her RPL branch which was previously dissected in 2016 was also normal appearing. It was felt that her blood pres sure was high and maybe she had a type 2 injury to to high blood pressure. She returns for follow-up and is denying any significant issues. She is single blood pressure has been well controlled at home. She is taking medication regularly. No [id number] medications specifically no decongestants used. 03/29/23: She returns for f/u. She has b een doing well. Occasionally gets achiness on the chest which improves with movement. No chest pains like before. Blood pressure is controlled. Taking medications regularly. She has not seen Endocrinology yet yet. She is asking about alcohol intake and we discussed in detail about moderate alcohol intake. 07/26/2023: She returns for follow-up. S he has seen endocrinology and pheochromocytoma has been ruled out by her report. She is due to get a renal ultrasound to rule out renal artery stenosis. No chest discomfort or shortness of breath. Blood pressure is well controlled on current regimen. [facility] Medical History (Updated 07/26/23 @ 15:44 by Oscar Cyr MD) Breast cancer screening by mammogram Left nephrolithiasis Abnormal stress ECG with treadmill Chest pain Preoperative cardiovascular examination On beta jarrett at home Anemia Chest pain Splenic cyst Vasospastic angina Anxiety Renal calculi Thyroid nodule Hypertension Surgical History History of esophagogastroduodenoscopy (EGD) S/P cardiac catheterization History of lithotripsy History of total hysterectomy History of section Family History Father Mouth cancer Mother T-cell lymphoma Hypertension Maternal Uncle Stomach cancer Paternal Aunt Stomach cancer Colon cancer Paternal Uncle Myocardial infarction Cancer of kidney Son No problems noted. Daughter No problems noted. Social History Housing: House Alcohol intake: current Alcohol intake frequency: a few times a week Comment: once a week 1 glass - 2 glass Patient Tobacco Use Status: Never used Tobacco e-Cigarette/Vaping Use: Never Used Second Hand Smoke Exposure: No service: No Current occupational status: employed Current occupation: liquor store, right handed Current occupational exposures/hazards: No Cognitive needs: No Hearing needs: No Vision needs: No Review of Systems Const Denies chills, Denies fatigue, Denies fever(s), Denies frequent falls, Denies weakness, Denies weight gain and Denies weight loss ENT Denies dizziness Card Denies chest pain, Denies leg edema, Denies lightheadedness, Denies palpitations, Denies dyspnea and Denies dyspnea on exertion Resp Denies cough, Denies dyspnea and Denies dyspnea on exertion GI Denies hematochezia Musc Denies abnormal gait, Denies muscle weakness, Denies numbness, Denies radiating pain into limb and Denies tingling Neuro Denies abnormal gait, Denies dizziness, Denies frequent falls, Denies numbness, Denies tingling and Denies weakness Endo Denies fatigue and Denies palpitations Physical Exam Vital Signs: Last Vital Signs Pulse 65 07/26/23 11:24 BP 130/70 07/26/23 11:24 BMI result Body Mass Index 29.7 GENERAL APPEARANCE: in no acute distress, pleasant. NECK: no carotid bruit, no jugular venous distention. SKIN: no suspicious lesions, warm and dry. HEART: no murmurs, regular rate and rhythm. LUNGS: clear to auscultation bilaterally. ABDOMEN: soft, nontender. EXTREMITIES: no edema. PERIPHERAL PULSES: equal. NEUROLOGIC: No gross deficits, AAO X 3 Assessment & Plan Assessment & Plan (1) Hypertension: Code(s): I10 - Essential (primary) hypertension (2) Spontaneous dissection of coronary artery: Comment: STEMI with right posterolateral branch dissection in 2016. Code(s): I25.42 - Coronary artery dissection Plan Pleasant 58-year-old female who is here for follow-up. She has background history of spontaneous coronary artery dissection in 2016. This was conservatively managed. In November 2022 she got admitted to [facility] for chest discomfort NSTEMI in the setting of elevated blood pressure. Her cardiac catheterization did not show any evidence of spontaneous coronary artery dissection and in fact the previous dissection in the posterolateral branch of right coronary artery was also healed and open. Given elevated blood pressures it was felt that she had a type 2 injury due to hypertension. She was started on medications with good blood pressure control. She has seen endocrinology to rule out pheochromocytoma. She is due to get a renal ultrasound to rule out any renal artery stenosis or FMD. She will see us back in few months. Thank you for allowing me to participate in the care of your patient. Please feel free to contact me if you have any questions. Coding Level of Care Code Est Pt Level 4 (68615) Diagnoses Hypertension I10 Spontaneous dissection of coronary artery I25.42
== END 2023-07-26 11:58 | disposition home or self-care (01) ==
PROVIDERS: PCP Internal Medicine; Visit Provider Internal Medicine Cardiovascular Disease
DX: I10 Essential (primary) hypertension (principal); I25.42 Coronary artery dissection
CPT/HCPCS: 99214

== ENCOUNTER → 2023-07-26 11:16 | Outpatient (BNVA) | payer OTHER, SELFPAY | PROVIDERS: PCP Internal Medicine; Visit Provider Internal Medicine Cardiovascular Disease ==

== ENCOUNTER 2023-07-30 09:40 | Outpatient (AMB) | payer OTHER, SELFPAY ==
[2023-07-30 09:49] VITALS: BMI 29.7
--- NOTE | 2023-07-30 09:49 | A.OFFVIS_ITS ---
Intake Vital Signs 04 09:49 Height 5 ft 4 in Weight 173 lb BMI 29.7 Intake Visit Reasons: ov-RT shoulder pain Intake Note: Tori a 57 year old right hand dominant female presents today for a follow up of right shoulder pain. Patient reports that PT provided no help is worst. Shuttle Driver Required: No Information Interpreted: non-clinical & clinical Accompanied by: Self / Same As Patient Allergies naproxen Allergy (Unknown, Verified 07/30/23 09:50) Unknown perindopril Allergy (Unknown, Verified 07/30/23 09:50) Unknown atorvastatin Adverse Reaction (Intermediate, Verified 07/30/23 09:50) myalgia lisinopril Adverse Reaction (Intermediate, Verified 07/30/23 09:50) cough HPI ov-RT shoulder pain HPI Details 58-year-old right hand dominant female eulalio morales returns to the office today for a follow-up of right shoulder pain. She currently states she has pain in her right shoulder which is aggravated with lifting and overhead reaching. She had undergone physical therapy which made her pain worse. She had also tried home exercises which did not provide her any relief. [facility] Medical History Breast cancer screening by mammogram Left nephrolithiasis Abnormal stress ECG with treadmill Chest pain Preoperative cardiovascular examination On beta jarrett at home Anemia Chest pain Splenic cyst Vasospastic angina Anxiety Renal calculi Thyroid nodule Hypertension Surgical History History of esophagogastroduodenoscopy (EGD) S/P cardiac catheterization History of lithotripsy History of total hysterectomy History of section Family History Father Mouth cancer Mother T-cell lymphoma Hypertension Maternal Uncle Stomach cancer Paternal Aunt Stomach cancer Colon cancer Paternal Uncle Myocardial infarction Cancer of kidney Son No problems noted. Daughter No problems noted. Social History Housing: House Alcohol intake: current Alcohol intake frequency: a few times a week Comment: once a week 1 glass - 2 glass Patient Tobacco Use Status: Never used Tobacco e-Cigarette/Vaping Use: Never Used Second Hand Smoke Exposure: No service: No Current occupational status: employed Current occupation: [employer], right handed Current occupational exposures/hazards: No Cognitive needs: No Hearing needs: No Vision needs: No Review of Systems Const All systems reviewed & are unremarkable except as noted in HPI and below Physical Exam Vital Signs: BMI result Body Mass Index 29.7 Const General: cooperative, healthy appearing, comfortable, no acute distress, well developed and alert Orientation/consciousness: patient oriented x3 HEENT Head: Yes normal to inspection, Yes normocephalic and Yes atraumatic Eyes General: appearance normal, both eyes and all related structures Resp Effort & Inspection: normal respiratory effort and able to speak in complete sentences Cardio Rate: regular rate Peripheral pulses: Peripheral pulses 2+ throughout GI Palpation (GI): Soft to palpation Skin Lesions: no lesions Rashes: no rashes Neuro General: patient oriented x3 Extrem Other: Right shoulder normal to inspection. Tenderness over the bicipital groove and along the deltoid region of the shoulder. Forward flexion to 175, external rotation to 90, internal rotation to S1. 5/5 RTC strength. Positive Almazan and O'estrellita's. NVI. Assessment & Plan Assessment & Plan (1) Right shoulder tendinitis: Code(s): M77.8 - Other enthesopathies, not elsewhere classified Plan We discussed options which include physical therapy and steroid injection. She is not in significant pain to have a cortisone injection therefore we will proceed with physical therapy. I stressed the importance of working with physical therapy for improving her posture and work on stability and strength of the shoulder. She is content with this plan and will contact me if she has any questions or concerns. Orders: Orders PT Evaluation and Treatment Today M77.8 - Other enthesopathies, not elsewhere classified Patient Instructions: Scribed for Riana Wilson PA-C, by Ian Hernández medical service technician, on 07/30/2023 at 9:45 AM EST. I, Riana Wilson PA-C, have personally reviewed and agree with the information entered by the scribe. Coding Level of Care Code Est Pt Level 3 (24188) Diagnoses Right shoulder tendinitis M77.8
== END 2023-07-30 10:36 | disposition home or self-care (01) ==
PROVIDERS: PCP Internal Medicine; Visit Provider Physician Assistant
DX: M77.8 Other enthesopathies, not elsewhere classified (principal)
CPT/HCPCS: 99213

== ENCOUNTER → 2023-07-30 09:40 | Outpatient (BNVA) | payer OTHER, SELFPAY | PROVIDERS: PCP Internal Medicine; Visit Provider Physician Assistant ==

== ENCOUNTER 2023-08-02 08:56 | Outpatient (REF) | payer OTHER, SELFPAY ==
--- NOTE | ~2023-08-02 | US_ITS ---
EXAMINATION: ULTRASOUND RENAL WITH DOPPLER CLINICAL INFORMATION: Hypertension. Coronary artery dissection. COMPARISON: Renal ultrasound 02/13/2022. TECHNIQUE: Real-time grayscale, color Doppler, and duplex Doppler evaluation of the kidneys and renal vasculature was performed. FINDINGS: RENAL MEASUREMENTS: Right: 11.3 x 4.7 x 4.6 cm (Sag x AP x TV) Left: 11.7 x 4.7 x 4.9 cm (Sag x AP x TV) The renal parenchyma appears normal. No hydronephrosis or visible nephrolithiasis. DOPPLER INTERROGATION: AORTA: Mid aorta: 99 cm/sec RIGHT MAIN RENAL ARTERY: Proximal: 108 cm/sec Mid: 106 cm/sec Distal: 101 cm/sec LEFT MAIN RENAL ARTERY: Proximal: 153 cm/sec Mid: 146 cm/sec Distal: 106 cm/sec RENAL-AORTIC RATIO (RAR): Right: 1.1 Left: 1.5 SEGMENTAL RESISTIVE INDICES: Right: 0.55-0.66 Left: 0.60-0.71 RENAL VEINS: Right: Patent with normal waveform. Left: Patent with normal waveform. US/US renal BI IMPRESSION: No evidence of hemodynamically significant renal artery stenosis. In light of the history of coronary artery dissection, if there is clinical concern for fibromuscular dysplasia, CTA of the abdomen and pelvis without and with contrast would be recommended.
--- NOTE | ~2023-08-02 | US_ITS ---
EXAMINATION: ULTRASOUND RENAL WITH DOPPLER CLINICAL INFORMATION: Hypertension. Coronary artery dissection. COMPARISON: Renal ultrasound 02/13/2022. TECHNIQUE: Real-time grayscale, color Doppler, and duplex Doppler evaluation of the kidneys and renal vasculature was performed. FINDINGS: RENAL MEASUREMENTS: Right: 11.3 x 4.7 x 4.6 cm (Sag x AP x TV) Left: 11.7 x 4.7 x 4.9 cm (Sag x AP x TV) The renal parenchyma appears normal. No hydronephrosis or visible nephrolithiasis. DOPPLER INTERROGATION: AORTA: Mid aorta: 99 cm/sec RIGHT MAIN RENAL ARTERY: Proximal: 108 cm/sec Mid: 106 cm/sec Distal: 101 cm/sec LEFT MAIN RENAL ARTERY: Proximal: 153 cm/sec Mid: 146 cm/sec Distal: 106 cm/sec RENAL-AORTIC RATIO (RAR): Right: 1.1 Left: 1.5 SEGMENTAL RESISTIVE INDICES: Right: 0.55-0.66 Left: 0.60-0.71 RENAL VEINS: Right: Patent with normal waveform. Left: Patent with normal waveform. US/US renal doppler IMPRESSION: No evidence of hemodynamically significant renal artery stenosis. In light of the history of coronary artery dissection, if there is clinical concern for fibromuscular dysplasia, CTA of the abdomen and pelvis without and with contrast would be recommended.
== END 2023-08-02 08:57 | disposition home or self-care (01) ==
LOC: HO.US 08:56
PROVIDERS: PCP Internal Medicine; Visit Provider Internal Medicine
DX: I10 Essential (primary) hypertension (principal)
CPT/HCPCS: 76775; 93975

== ENCOUNTER 2023-08-02 10:50 | Outpatient (REF) | payer OTHER, SELFPAY ==
[2023-08-02 11:03] LABS: MANUAL DIFF FLAG NO
[2023-08-02 11:30] LABS: Basophils Absolute Auto 0.1 X10*3/uL (0.0-0.2); Basophils Percent Auto 1.3 % (0-2); Eosinophils Absolute Auto 0.2 X10*3/uL (0.0-0.4); Eosinophils Percent Auto 3.3 % (0-4); Hematocrit 39.3 % (37.0-47.0); Hemoglobin 13.1 g/dl (12.0-16.0); Imm Gran Abs Auto 0.01 X10*3/uL (0.00-0.03); Imm Gran Pct Auto 0.2 % (0.0-0.4); Lymphocytes Absolute Auto 1.5 X10*3/uL (1.2-4.9); Lymphocytes Percent Auto 33.3 % (20-40); Mean Corpuscular HGB Conc 33.3 g/dl (31.0-35.0); Mean Corpuscular Volume 89.9 fL (80.0-98.0); Mean Platelet Volume 9.1 fL (9.4-12.3); Monocytes Absolute Auto 0.4 X10*3/uL (0.1-1.2); Monocytes Percent Auto 7.7 % (2-11); Neutrophils Absolute Auto 2.5 x10*3/uL (2.0-8.3); Neutrophils Percent Auto 54.2 % (45-73); Platelet Count 327 X10*3/uL (160-400); Red Blood Count 4.37 X10*6/uL (4.20-5.50); Red Cell Distribution Width 12.6 % (11.0-16.0); White Blood Count 4.6 X10*3/uL (4.8-10.8)
[2023-08-02 12:03] LABS: Alanine Aminotransferase 14 U/L (0-31); Albumin Level 4.3 g/dL (3.5-5.0); Alkaline Phosphatase 62 U/L (39-117); Anion Gap 12 (12-20); Aspartate Amino Transferase 17 U/L (5-31); Bilirubin Total 0.5 mg/dL (0.0-1.0); Blood Urea Nitrogen 15 mg/dL (9-16); C Reactive Protein 0.15 mg/dL (< or = 0.50); Calcium 9.6 mg/dL (8.4-10.2); Carbon Dioxide 28 mmol/L (22-29); Chloride 107 mmol/L (96-108); Cholesterol 230 mg/dL (<200); Estimated Glomerular Filt Rate > 60; Glucose Fasting 86 mg/dL (60-99); HDL Cholesterol 67 mg/dL (>40); LDL Cholesterol Calculated 147 mg/dL (<100); Potassium 4.5 mmol/L (3.3-5.1); Sodium 142 mmol/L (135-145); Total Protein 7.5 g/dL (6.5-8.0); Triglycerides 80 mg/dL (<150)
[2023-08-02 12:21] LABS: TSH reflex Free T4 0.98 uIU/mL (0.32-4.0)
[2023-08-02 12:29] LABS: Erythrocyte Sedimentation Rate 10 MM/HR (0-20)
[2023-08-02 12:31] LABS: Folate 14.4 ng/mL (> or = 4.0); Vitamin B12 463 pg/mL (200-900)
[2023-08-02 12:46] LABS: Appearance Urine Clear; Color Urine Yellow; Glucose Urine UA Negative (Negative); Leukocyte Esterase Urine Negative (Negative); Nitrite Urine Negative (Negative); Urine Blood Negative (Negative); Urine Ketones Negative (Negative); Urine Protein Negative (Neg-Trace)
== END 2023-08-02 10:51 | disposition home or self-care (01) ==
LOC: HO.LAB 10:50
PROVIDERS: PCP Internal Medicine; Visit Provider Internal Medicine
DX: Z13.21 Encounter for screening for nutritional disorder (principal); Z13.220 Encounter for screening for lipoid disorders; Z13.29 Encounter for screening for other suspected endocrine disorder; Z13.0 Encounter for screening for diseases of the blood and blood-forming organs and certain disorders involving the immune mechanism; M79.651 Pain in right thigh; M79.652 Pain in left thigh; I10 Essential (primary) hypertension; R30.0 Dysuria
CPT/HCPCS: 36415; 80053; 80061; 81003; 82306; 82607; 82746; 84443; 85025; 85652; 86140

== ENCOUNTER → 2023-08-23 09:03 | Outpatient (REF) | payer OTHER, SELFPAY | LOC: HO.SL 09:03 | PROVIDERS: PCP Internal Medicine; Visit Provider Internal Medicine | DX: G47.33 Obstructive sleep apnea (adult) (pediatric) (principal) | CPT/HCPCS: 95806 ==

== ENCOUNTER → 2023-08-23 09:16 | Outpatient (BNV) | payer OTHER, SELFPAY | PROVIDERS: PCP Internal Medicine; Visit Provider Internal Medicine | DX: G47.33 Obstructive sleep apnea (adult) (pediatric) (principal) | CPT/HCPCS: 95806 ==

== ENCOUNTER 2023-09-15 08:00 | Outpatient (RCR) | payer OTHER, SELFPAY ==
--- NOTE | 2023-08-19 15:39 | MHC.PT.EP ---
[facility] [place] [facility] [place] Office [place] Office [address] Bashir Capone [address] [phone] F: [phone] F: [phone] F: [phone] F: [phone] Physical Therapy Plan of Care Date of Evaluation: 08/19/23 Date of Surgery: Diagnosis: RIGHT SHOULDER TENDONITIS (KP) Assessment: JERAMIE IS A 58 YO FEMALE WHO REPORTS CHRONIC HISTORY OF SHOULDER PAIN WITH CERTAIN MOVEMENTS WHICH FLAIR UP AND THEN IMPROVE. PAQIN IS REPORTED IN ANTERIOR SHOULDER AND INTO BICEPS. REPORTS SOME DIFFICULTY PLACING OBJECTS INTO CABINET OR OVERHEAD ACTIVITIES. ROTATION IN CERTAIN PLANES ALSO INCREASES PAIN. SHE TENDS TO KEEP HER ARM CLOSE TO BODY IN ORDER TO CONTROL PAIN. DENIES ALTERED SENSATION, SWELLING, BRUISING. 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 UPON EXAM SHE DEMONSTRATES IMPAIRMENTS OF DECREASED SHOULDER ROM AND STRENGTH, ALTERED SOFT TISSUE DYSFUNCTION WITH INCREASED UPPER TRAP COMPENSATION, ALTERED POSTURE AND POSITIONING AND WEAKNESS IN PERISCAP MUSCULATURE, INCREASED PAIN. FUNTIONAL LIMITATIONS OF DECREASED TOLERANCE TO LIFTING, REACHING, CARRYING AND HOLDING. SHE REPORTS DECREASED ABILITY TO PERFORM HIGHER DEMAND HOMEMAKING AND SELF CARE TASKS, DECREASED ABILITY TO PARTICIPATE IN RECREATIONAL AND WORK TASKS, DISRUPTED SLEEP. Frequency and Duration: The patient will be seen 2 X WEEK FOR 4 WEEKS Short Term Goals: INITIATE HEP AND PROMOTE SELF MANAGEMENT OF SYMPTOMS Custodial Goals: FULL, PAIN FREE SHOULDER ROM FULL STRENGTH OF SHOULDER AND UPPER BACK MUSCULATURE TO PLACE 5# OBJECT ON SHELF WITHOUT SUBSTITUTION INDEPENDENT HEP AND SELF MANAGEMENT OF RESIDUAL SYMPTOMS Treatment Plan: Modalities to reduce pain, spasms and effusion. Manual therapy to restore motion and function. Therapeutic exercise to improve strength and flexibility. Neuromuscular re-education for posture and balance. Therapeutic activities to return to functional activities of daily living. Electronically signed by: NAMRATA ONTIVEROS PT DPT Please sign and return to therapist. Thank you for your referral.
== END 2023-10-22 08:24 | disposition home or self-care (01) ==
LOC: HO.PT 08:00
PROVIDERS: PCP Internal Medicine; Visit Provider Physician Assistant
DX: M77.8 Other enthesopathies, not elsewhere classified (principal)
CPT/HCPCS: 97110; 97161

== ENCOUNTER 2023-10-29 08:31 | Outpatient (AMB) | payer OTHER, SELFPAY ==
[2023-10-29 08:32] VITALS: BP 134/72; PULSE 61; O2SAT 97; BMI 28.8
--- NOTE | 2023-10-29 08:32 | MHC.PC.OV ---
Vital Signs 10/29/23 08:32 Height 5 ft 4 in Weight 168 lb 0.8 oz BMI 28.8 BP 134/72 Blood Pressure Location Lt brachial Position Sitting Pulse 61 Pulse Source Pulse Oximeter Pulse Oximetry (%) 97 Oxygen Delivery Method Room Air Intake Visit Reasons: SCAD Merchandising Representative Required: No Allergies naproxen Allergy (Unknown, Verified 10/29/23 08:32) Unknown perindopril Allergy (Unknown, Verified 10/29/23 08:32) Unknown atorvastatin Adverse Reaction (Intermediate, Verified 10/29/23 08:32) myalgia lisinopril Adverse Reaction (Intermediate, Verified 10/29/23 08:32) cough Tobacco use date assessed: 10/29/23 Dental Screening Dental Screen Date: 07/14/23 HPI SCAD HPI Details 58 year old overweight female with a history of hypertension impaired glucose tolerance generalized anxiety disorder and history of spontaneous coronary artery dissection last seen in 07/14/2023. Patient's mammogram is due patient's colonoscopy is up-to-date 10/13/2020 5 years. Review of the notes had a sleep study done 08/23/2023 showing moderately severe obstructive sleep apnea with an AHI of 16 on the supine position AHI of 43 position therapy was strongly recommended otherwise CPAP therapy auto PAP 6-20 cm water. Patient did have an ultrasound of the kidneys done showing no evidence of significant renal artery stenosis. Patient has also been sent to the ortho sent the patient for physical therapy for right shoulder pain tendonitis diagnosis. For the S CAD nuclear imaging was normal no symptoms during stress test so with a background of spontaneous coronary artery dissection 2016 conservatively managed cardiac catheterization negative type 2 injury due to hypertension. [facility] Medical History (Updated 10/29/23 @ 08:49 by Tamy Pascal MD) Hypercholesterolemia Breast cancer screening by mammogram Left nephrolithiasis Abnormal stress ECG with treadmill Chest pain Preoperative cardiovascular examination On beta jarrett at home Anemia Chest pain Splenic cyst Vasospastic angina Anxiety Renal calculi Thyroid nodule Hypertension Surgical History History of esophagogastroduodenoscopy (EGD) S/P cardiac catheterization History of lithotripsy History of total hysterectomy History of section Family History Father Mouth cancer Mother T-cell lymphoma Hypertension Maternal Uncle Stomach cancer Paternal Aunt Stomach cancer Colon cancer Paternal Uncle Myocardial infarction Cancer of kidney Son No problems noted. Daughter No problems noted. Social History Housing: House Alcohol intake: current Alcohol intake frequency: a few times a week Comment: once a week 1 glass - 2 glass Patient Tobacco Use Status: Never used Tobacco e-Cigarette/Vaping Use: Never Used Second Hand Smoke Exposure: No service: No Current occupational status: employed Current occupation: [employer], right handed Current occupational exposures/hazards: No Cognitive needs: No Hearing needs: No Vision needs: No Questionnaire Thrive Questionnaire Date Thrive assessed: 07/08/22 AUDIT C Alcohol Use Questionnaire (AUDIT-C) 1. How often do you have a drink containing alcohol?: Monthly or less 2. How many drinks containing alcohol do you have on a typical day when you are drinking?: 1 or 2 3. How often do you have six or more drinks on one occasion?: Never Total Score: 1 Score Reviewed/Action Taken: No ARIES-7 AMB Questionnaire ARIES-7 Date ARIES - 7 assessed: 07/14/23 Source: Developed by Drs. Benito Dowell, Yris Smith, Mazin Gutierrez and colleagues, with an educational jodie from [employer]. Physical exam (Primary Care) Vital Signs: Last Vital Signs Pulse 61 10/29/23 08:32 BP 134/72 10/29/23 08:32 Pulse Ox 97 10/29/23 08:32 Oxygen Delivery Method Room Air 10/29/23 08:32 BMI result Body Mass Index 28.8 Tobacco/Smoking Status: Tobacco use Status Tobacco use date assessed 10/29/23 10/29/23 08:37 Patient Tobacco Use Status Never used Tobacco 10/29/23 08:37 e-Cigarette/Vaping Use Never Used 10/29/23 08:37 Thrive Assessment: Date of Thrive Assessment Date Thrive assessed 07/08/22 10/29/23 08:37 Const General: alert; No acute distress Eyes Conjunctivae: conjunctivae normal Resp Auscultation: clear to auscultation bilaterally Cardio Rate: regular rate Rhythm: regular rhythm GI Inspection: Yes normal to inspection Extrem General: Yes normal to inspection and No edema Assessment and Plan Assessment & Plan (1) Obstructive sleep apnea: Comment: Sleep study done 08/23/2023 moderately severe AHI of 16 supine AHI of 43 CPAP therapy with auto PAP mode pressure setting 6-20 cm Code(s): G47.33 - Obstructive sleep apnea (adult) (pediatric) Plan: Discussion with the patient regarding CPAP treatment as well as positional therapy for sleep (2) Right shoulder tendinitis: Code(s): M77.8 - Other enthesopathies, not elsewhere classified Plan: Patient has been seen by ortho and ordered physical therapy (3) Breast cancer screening by mammogram: Code(s): Z12.31 - Encounter for screening mammogram for malignant neoplasm of breast Plan: Patient is reminded about mammogram (4) Spontaneous dissection of coronary artery: Comment: STEMI with right posterolateral branch dissection in 2016. Code(s): I25.42 - Coronary artery dissection Plan: Patient has seen Cardiology and conservative management ASCVD risk 3.8% (5) Hypertension: Code(s): I10 - Essential (primary) hypertension Plan: Continue with blood pressure medication. Decrease salt intake and exercise presently on amlodipine 5 mg once a day metoprolol 100 mg once a day (6) Hypercholesterolemia: Code(s): E78.00 - Pure hypercholesterolemia, unspecified Plan: Avoid fried foods, chicken skin, eggs, butter margarine, pastries and meat. Be it pork or beef they have a lot of cholesterol LDL goal of less than 70 and triglyceride of less than 150 Orders: Referrals Sleep Medicine Referral G47.33 - Obstructive sleep apnea (adult) (pediatric) Coding Level of Care Code Est Pt Level 4 (69264) Diagnoses Obstructive sleep apnea G47.33 Right shoulder tendinitis M77.8 Breast cancer screening by mammogram Z12.31 Spontaneous dissection of coronary artery I25.42 Hypertension I10 Hypercholesterolemia E78.00
== END 2023-10-29 09:12 | disposition home or self-care (01) ==
PROVIDERS: PCP Internal Medicine; Visit Provider Internal Medicine
DX: G47.33 Obstructive sleep apnea (adult) (pediatric) (principal); M77.8 Other enthesopathies, not elsewhere classified; Z12.31 Encounter for screening mammogram for malignant neoplasm of breast; I25.42 Coronary artery dissection; I10 Essential (primary) hypertension; E78.00 Pure hypercholesterolemia, unspecified
CPT/HCPCS: 99214

== ENCOUNTER 2023-11-10 10:42 | Outpatient (AMB) | payer OTHER, SELFPAY ==
[2023-11-10 10:45] VITALS: BP 130/70; PULSE 65; BMI 29.1
--- NOTE | 2023-11-10 10:45 | MHC.OFFVIS ---
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 Accompanied by: Self / Same As Patient Allergies naproxen Allergy (Unknown, Verified 10/29/23 08:32) Unknown perindopril Allergy (Unknown, Verified 10/29/23 08:32) Unknown atorvastatin Adverse Reaction (Intermediate, Verified 10/29/23 08:32) myalgia lisinopril Adverse Reaction (Intermediate, Verified 10/29/23 08:32) cough Medication List - Last Reconciled 11/10/23 by Oscar Cyr MD amlodipine 5 mg PO DAILY 90 days ascorbate calcium (vitamin C) 1 g PO DAILY aspirin 81 mg PO DAILY [AUTOPAP 6-20 cm H2O humidified air Sleep study done 08/23/2023 moderately severe AHI of 16 supine AHI of 43 CPAP therapy with auto PAP mode pressure setting 6-20 cm] cholecalciferol (vitamin D3) 25 mcg PO DAILY magnesium 200 mg PO DAILY metoprolol succinate ER (Toprol XL) 100 mg PO DAILY HPI Comments Details: 58-year-old female here for follow-up. She had inferior ST elevations and 2016 and presented with central chest discomfort. She was taken for cardiac catheterization which showed some concern about dissection in a small right posterolateral branch. 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 She has done well since then. Recently she complained of upper back discomfort to Dr. Pascal. This was quite random and happen at rest and with activities. She underwent stress testing. She initially had exercise stress tests where she was able to exercise for 10.1 Mets and EKG met criteria for ischemia with [address] depressions in V6 and inferior leads. She did not have any chest discomfort or back discomfort during exercise and stop because of fatigue. Subsequent to that she had stress Mibi where again she was able to exercise for 10.4 metabolic equivalents and had ischemic changes similar to before. Nuclear imaging was normal. She did not have any symptoms during stress tests in given normal perfusion imaging we decided to medically treat her and now perform any further invasive assessment. She has been stable and has no chest discomfort back issues. On follow-up today she is doing well. She has no chest discomfort or shortness of breath. Taking medications regularly. She has some questions about her blood pressure being slightly low. She was in [place] and checked her blood pressure and was 106/60. She said she did not have any dizziness or lightheadedness at that time. Denying any similar symptoms now too. 02/17/23: She returns for follow-up. She recently got admitted to [facility] because she had chest discomfort and ruled in for NSTEMI. She underwent cardiac catheterization which showed normal coronary arteries without any significant coronary disease and in fact her RPL branch which was previously dissected in 2016 was also normal appearing. It was felt that her blood pressure was high and maybe she had a type 2 injury to to high blood pressure. She returns for follow-up and is denying any significant issues. She is single blood pressure has been well controlled at home. She is taking medication regularly. No [id number] medications specifically no decongestants used. 03/29/23: She returns for f/u. She has been doing well. Occasionally gets achiness on the chest which improves with movement. No chest pains like before. Blood pressure is controlled. Taking medications regularly. She has not seen Endocrinology yet yet. She is asking about alcohol intake and we discussed in detail about moderate alcohol intake. 07/26/2023: She returns for follow-up. She has seen endocrinology and pheochromocytoma has been ruled out by her report. She is due to get a renal ultrasound to rule out renal artery stenosis. No chest discomfort or shortness of breath. Blood pressure is well controlled on current regimen. 11/10/2023: She is here for follow-up. She has been diagnosed sleep apnea and is using CPAP mask and is feeling better. Blood pressure is well controlled. She had lipid panel performed where LDL cholesterol was 145 and total cholesterol was 230. She was advised by Dr. Pascal to start statin therapy but she is unsure about it. I have advised her that her LDL level is high. After some discussion we have decided to repeat it in a month's time. No chest discomfort or shortness of breath. Doing well generally. [facility] Medical History (Updated 10/29/23 @ 08:49 by Tamy Pascal MD) Hypercholesterolemia Breast cancer screening by mammogram Left nephrolithiasis Abnormal stress ECG with treadmill Chest pain Preoperative cardiovascular examination On beta jarrett at home Anemia Chest pain Splenic cyst Vasospastic angina Anxiety Renal calculi Thyroid nodule Hypertension Surgical History History of esophagogastroduodenoscopy (EGD) S/P cardiac catheterization History of lithotripsy History of total hysterectomy History of section Family History Father Mouth cancer Mother T-cell lymphoma Hypertension Maternal Uncle Stomach cancer Paternal Aunt Stomach cancer Colon cancer Paternal Uncle Myocardial infarction Cancer of kidney Son No problems noted. Daughter No problems noted. Social History Housing: House Alcohol intake: current Alcohol intake frequency: a few times a week Comment: once a week 1 glass - 2 glass Patient Tobacco Use Status: Never used Tobacco e-Cigarette/Vaping Use: Never Used Second Hand Smoke Exposure: No service: No Current occupational status: employed Current occupation: [employer], right handed Current occupational exposures/hazards: No Cognitive needs: No Hearing needs: No Vision needs: No Review of Systems Const Denies chills, Denies fatigue, Denies fever(s), Denies frequent falls, Denies weakness, Denies weight gain and Denies weight loss ENT Denies dizziness Card Denies chest pain, Denies leg edema, Denies lightheadedness, Denies palpitations, Denies dyspnea and Denies dyspnea on exertion Resp Denies cough, Denies dyspnea and Denies dyspnea on exertion GI Denies hematochezia Musc Denies abnormal gait, Denies muscle weakness, Denies numbness, Denies radiating pain into limb and Denies tingling Neuro Denies abnormal gait, Denies dizziness, Denies frequent falls, Denies numbness, Denies tingling and Denies weakness Endo Denies fatigue and Denies palpitations Physical Exam Vital Signs: Last Vital Signs Pulse 65 11/10/23 10:45 BP 130/70 11/10/23 10:45 BMI result Body Mass Index 29.1 GENERAL APPEARANCE: in no acute distress, pleasant. NECK: no carotid bruit, no jugular venous distention. SKIN: no suspicious lesions, warm and dry. HEART: no murmurs, regular rate and rhythm. LUNGS: clear to auscultation bilaterally. ABDOMEN: soft, nontender. EXTREMITIES: no edema. PERIPHERAL PULSES: equal. NEUROLOGIC: No gross deficits, AAO X 3 Assessment & Plan Assessment & Plan (1) Hypercholesterolemia: Code(s): E78.00 - Pure hypercholesterolemia, unspecified Category: Medical (2) Hypertension: Code(s): I10 - Essential (primary) hypertension Category: Medical (3) Spontaneous dissection of coronary artery: Comment: STEMI with right posterolateral branch dissection in 2016. Code(s): I25.42 - Coronary artery dissection Category: Medical Plan Very pleasant 58-year-old female who is here for follow-up. She has background history of spontaneous coronary artery dissection in 2016. This was conservatively managed and symptoms improved. In 2022 she had NSTEMI in the setting of elevated blood pressures. She underwent cardiac catheterization where no significant coronary disease was noticed and actually the previously occluded posterolateral branch from right coronary artery was also open. She has been on antihypertensive therapy since then her blood pressure has been well controlled. She has been diagnosed with sleep apnea and is currently using CPAP and is feeling better than before. She has elevated cholesterol levels. I think she should be on statins. We had some discussion and we have decided to repeat levels again in a 3-4 weeks' time. She should comply with CPAP. Thank you for allowing me to participate in the care of your patient. Please feel free to contact me if you have any questions. Orders: Orders Lipid Panel Today E78.00 - Pure hypercholesterolemia, unspecified Homocysteine Today I25.42 - Coronary artery dissection Coding Level of Care Code Est Pt Level 4 (57262) Diagnoses Hypercholesterolemia E78.00 Hypertension I10 Spontaneous dissection of coronary artery I25.42
== END 2023-11-10 11:03 | disposition home or self-care (01) ==
PROVIDERS: PCP Internal Medicine; Visit Provider Internal Medicine Cardiovascular Disease
DX: E78.00 Pure hypercholesterolemia, unspecified (principal); I10 Essential (primary) hypertension; I25.42 Coronary artery dissection
CPT/HCPCS: 99214

== ENCOUNTER → 2023-11-10 10:42 | Outpatient (BNVA) | payer OTHER, SELFPAY | PROVIDERS: PCP Internal Medicine; Visit Provider Internal Medicine Cardiovascular Disease ==

== ENCOUNTER 2023-12-01 15:50 | Outpatient (AMB) | payer OTHER, SELFPAY ==
[2023-12-01 15:52] VITALS: BP 142/76; PULSE 68; O2SAT 98; BMI 29.2
--- NOTE | 2023-12-01 15:52 | A.OFFPC_ITS ---
Vital Signs 12/01/23 15:52 Height 5 ft 4 in Weight 170 lb 0.5 oz BMI 29.2 BP 142/76 H Blood Pressure Location Lt brachial Position Sitting Pulse 68 Pulse Source Pulse Oximeter Pulse Oximetry (%) 98 Oxygen Delivery Method Room Air Intake Visit Reasons: Cpap form discussion Human Resources Project Manager Required: No Allergies naproxen Allergy (Unknown, Verified 12/01/23 15:53) Unknown perindopril Allergy (Unknown, Verified 12/01/23 15:53) Unknown atorvastatin Adverse Reaction (Intermediate, Verified 12/01/23 15:53) myalgia lisinopril Adverse Reaction (Intermediate, Verified 12/01/23 15:53) cough Medication List - Last Reconciled 12/01/23 by Ligia Subramanian PA-C amlodipine 5 mg PO DAILY 90 days ascorbate calcium (vitamin C) 1 g PO DAILY aspirin 81 mg PO DAILY [AUTOPAP 6-20 cm H2O humidified air Sleep study done 08/23/2023 moderately severe AHI of 16 supine AHI of 43 CPAP therapy with auto PAP mode pressure setting 6- 20 cm] cholecalciferol (vitamin D3) 25 mcg PO DAILY magnesium 200 mg PO DAILY metoprolol succinate ER (Toprol XL) 100 mg PO DAILY Tobacco use date assessed: 10/29/23 Dental Screening Dental Screen Date: 07/14/23 HPI Cpap form discussion HPI Details 58 year old overweight female with a his tory of hypertension, impaired glucose tolerance, generalized anxiety disorder, and history of spontaneous coronary artery dissection last seen in 10/2023 coming in for CPAP follow up. At her last visit patient discussed with Dr. Pascal treatment options for o bstructive sleep apnea. Patient completed at home sleep study which showed evidence that she would benefit from treatment. She has been using CPAP treatment at home successfully and has found good relief from daytime somnolence and states she feels refreshed. She also mentioned she has been sleeping better and wakes up less time in the night. [facility] Medical History Hypercholesterolemia Breast cancer screening by mammogram Left nephrolithiasis Abnormal stress ECG with treadmill Chest pain Preoperative cardiovascular examination On beta jarrett at home Anemia Chest pain Splenic cyst Vasospastic angina Anxiety Renal calculi Thyroid nodule Hypertension Surgical History History of esophagogastroduodenoscopy (EGD) S/P cardiac catheterization History of lithotripsy History of total hysterectomy History of section Family History Father Mouth cancer Mother T-cell lymphoma Hypertension Maternal Uncle Stomach cancer Paternal Aunt Stomach cancer Colon cancer Paternal Uncle Myocardial infarction Cancer of kidney Son No problems noted. Daughter No problems noted. Social History Housing: House Alcohol intake: current Alcohol intake frequency: a few times a week Comment: once a week 1 glass - 2 glass Patient Tobacco Use Status: Never used Tobacco e-Cigarette/Vaping Use: Never Used Second Hand Smoke Exposure: No service: No Current occupational status: employed Current occupation: [employer], right handed Current occupational exposures/hazards: No Cognitive needs: No Hearing needs: No Vision needs: No Questionnaire Thrive Questionnaire Date Thrive assessed: 07/08/22 AUDIT C Alcohol Use Questionnaire (AUDIT-C) 1. How often do you have a drink containing alcohol?: Monthly or less 2. How many drinks containing alcohol do you have on a typical day when you are drinking?: 1 or 2 3. How often do you have six or more drinks on one occasion?: Never Total Score: 1 Score Reviewed/Action Taken: No ARIES-7 AMB Questionnaire ARIES-7 Date ARIES - 7 assessed: 07/14/23 Source: Developed by Drs. Benito Dowell, Yris Smith, Mazin Gutierrez and colleagues, with an educational jodie from [employer]. Review of Systems Const Denies daytime sleepiness and Denies fatigue Eyes Reports no additional complaints ENT Reports no additional complaints Card Reports no additional complaints and Denies dyspnea Resp Denies cough and Denies dyspnea GI Reports no additional complaints Musc Reports no additional complaints Skin/Breast Reports system reviewed and no additional complaints, except as documented Neuro Reports no additional complaints Endo Denies fatigue Physical exam (Primary Care) Vital Signs: Last Vital Signs Pulse 68 12/01/23 15:52 BP 142/76 H 12/01/23 15:52 Pulse Ox 98 12/01/23 15:52 Oxygen Delivery Method Room Air 12/01/23 15:52 BMI result Body Mass Index 29.2 Tobacco/Smoking Status: Tobacco use Status Tobacco use date assessed 10/29/23 12/01/23 15:57 Patient Tobacco Use Status Never used Tobacco 12/01/23 15:57 e-Cigarette/Vaping Use Never Used 12/01/23 15:57 Thrive Assessment: Date of Thrive Assessment Date Thrive assessed 07/08/22 12/01/23 15:57 Const General: cooperative, healthy appearing, comfortable and no acute distress Orientation/consciousness: patient oriented x3 HENMT Head: Yes normocephalic Ears: hearing grossly normal bilaterally General nose exam: Normal external nose present Eyes General: appearance normal, both eyes and all related structures Conjunctivae: conjunctivae normal Neck Neck: Yes full ROM and Yes no lymphadenopathy Resp Effort & Inspection: normal respiratory effort Auscultation: clear to auscultation bilaterally, no crackles, no rales, no rhonchi and no wheezes Cardio Rate: regular rate Rhythm: regular rhythm Skin General skin exam: no rashes or lesions noted Neuro General: patient oriented x3 Gait exam (Neuro): Normal gait present Extrem General: Yes normal to inspection, Yes full ROM and No edema Psych Affect: normal affect Attitude: cooperative Insight: Good insight present (Psych) Judgement: Good judgement present (Psych) Assessment and Plan Assessment & Plan (1) Obstructive sleep apnea: Comment: Sleep study done 08/23/2023 moderately severe AHI of 16 supine AHI of 43 CPAP therapy with auto PAP mode pressure setting 6-20 cm Code(s): G47.33 - Obstructive sleep apnea (adult) (pediatric) Plan: Patient has been using CPAP therapy nightly for obstructive sleep apnea and finds good benefit from this. She mentions she feels less fatigued throughout the day and has been sleeping through the night. Recommend continuation with CPAP as the patient finds good benefit with this therapy. Plan This note was constructed using voice recognition software. While every effort has been made to ensure accuracy and professor of oceanography, still areas may have been included sometimes these areas may affect the content or meeting of the given symptoms. Total time spent caring for the patient today was 20 minutes. This includes time spent before the visit reviewing the chart, time spent during the visit, and time spent after the visit and documentation. Coding Level of Care Code Est Pt Level 3 (59724) Diagnoses Obstructive sleep apnea G47.33
== END 2023-12-01 16:11 | disposition home or self-care (01) ==
PROVIDERS: PCP Internal Medicine
DX: G47.33 Obstructive sleep apnea (adult) (pediatric) (principal)
CPT/HCPCS: 99213

== ENCOUNTER 2024-05-17 10:05 | Outpatient (AMB) | payer OTHER, SELFPAY ==
[2024-05-17 10:10] VITALS: BP 130/82; PULSE 68
--- NOTE | 2024-05-17 10:10 | MHC.OFFVIS ---
Vital Signs 05/17/24 10:10 Height 5 ft 4 in Weight 174 lb 9.698 oz BMI 30.0 BP 130/82 Blood Pressure Location Lt brachial Position Sitting Pulse 68 Pulse Source Monitor Intake Visit Reasons: 6 mth f/up Intake Note: 6 mth f/up Reeling Machine Setup Operator Required: No Accompanied by: Self / Same As Patient Allergies naproxen Allergy (Unknown, Verified 12/01/23 15:53) Unknown perindopril Allergy (Unknown, Verified 12/01/23 15:53) Unknown atorvastatin Adverse Reaction (Intermediate, Verified 12/01/23 15:53) myalgia lisinopril Adverse Reaction (Intermediate, Verified 12/01/23 15:53) cough Medication List - Last Reconciled 05/17/24 by Oscar Cyr MD amlodipine 5 mg PO DAILY 90 days ascorbate calcium (vitamin C) 1 g PO DAILY aspirin 81 mg PO DAILY [AUTOPAP 6-20 cm H2O humidified air Sleep study done 08/23/2023 moderately severe AHI of 16 supine AHI of 43 CPAP therapy with auto PAP mode pressure setting 6-20 cm] cholecalciferol (vitamin D3) 25 mcg PO DAILY magnesium 200 mg PO DAILY metoprolol succinate ER (Toprol XL) 100 mg PO DAILY HPI Comments Details: 59-year-old female here for follow-up. She had inferior ST elevations and 2016 and presented with central chest discomfort. She was taken for cardiac catheterization which showed some concern about dissection in a small right posterolateral branch. 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 She has done well since then. Recently she complained of upper back discomfort to Dr. Pascal. This was quite random and happen at rest and with activities. She underwent stress testing. She initially had exercise stress tests where she was able to exercise for 10.1 Mets and EKG met criteria for ischemia with [address] depressions in V6 and inferior leads. She did not have any chest discomfort or back discomfort during exercise and stop because of fatigue. Subsequent to that she had stress Mibi where again she was able to exercise for 10.4 metabolic equivalents and had ischemic changes similar to before. Nuclear imaging was normal. She did not have any symptoms during stress tests in given normal perfusion imaging we decided to medically treat her and now perform any further invasive assessment. She has been stable and has no chest discomfort back issues. On follow-up today she is doing well. She has no chest discomfort or shortness of breath. Taking medications regularly. She has some questions about her blood pressure being slightly low. She was in [place] and checked her blood pressure and was 106/60. She said she did not have any dizziness or lightheadedness at that time. Denying any similar symptoms now too. 02/17/23: She returns for follow-up. She recently got admitted to [facility] because she had chest discomfort and ruled in for NSTEMI. She underwent cardiac catheterization which showed normal coronary arteries without any significant coronary disease and in fact her RPL branch which was previously dissected in 2016 was also normal appearing. It was felt that her blood pressure was high and maybe she had a type 2 injury to to high blood pressure. She returns for follow-up and is denying any significant issues. She is single blood pressure has been well controlled at home. She is taking medication regularly. No [id number] medications specifically no decongestants used. 03/29/23: She returns for f/u. She has been doing well. Occasionally gets achiness on the chest which improves with movement. No chest pains like before. Blood pressure is controlled. Taking medications regularly. She has not seen Endocrinology yet yet. She is asking about alcohol intake and we discussed in detail about moderate alcohol intake. 07/26/2023: She returns for follow-up. She has seen endocrinology and pheochromocytoma has been ruled out by her report. She is due to get a renal ultrasound to rule out renal artery stenosis. No chest discomfort or shortness of breath. Blood pressure is well controlled on current regimen. 11/10/2023: She is here for follow-up. She has been diagnosed sleep apnea and is using CPAP mask and is feeling better. Blood pressure is well controlled. She had lipid panel performed where LDL cholesterol was 145 and total cholesterol was 230. She was advised by Dr. Pascal to start statin therapy but she is unsure about it. I have advised her that her LDL level is high. After some discussion we have decided to repeat it in a month's time. No chest discomfort or shortness of breath. Doing well generally. 05/17/2024: She returns for follow-up. No chest pain or shortness of breath. Blood pressure is well controlled. Not very active during the wintertime. Overall clinically stable. [facility] Medical History Hypercholesterolemia Breast cancer screening by mammogram Left nephrolithiasis Abnormal stress ECG with treadmill Chest pain Preoperative cardiovascular examination On beta jarrett at home Anemia Chest pain Splenic cyst Vasospastic angina Anxiety Renal calculi Thyroid nodule Hypertension Surgical History History of esophagogastroduodenoscopy (EGD) S/P cardiac catheterization History of lithotripsy History of total hysterectomy History of section Family History Father Mouth cancer Mother T-cell lymphoma Hypertension Maternal Uncle Stomach cancer Paternal Aunt Stomach cancer Colon cancer Paternal Uncle Myocardial infarction Cancer of kidney Son No problems noted. Daughter No problems noted. Social History Housing: House Alcohol intake: current Alcohol intake frequency: a few times a week Comment: once a week 1 glass - 2 glass Patient Tobacco Use Status: Never used Tobacco e-Cigarette/Vaping Use: Never Used Second Hand Smoke Exposure: No service: No Current occupational status: employed Current occupation: [employer] store, right handed Current occupational exposures/hazards: No Cognitive needs: No Hearing needs: No Vision needs: No Review of Systems Const Denies chills, Denies fatigue, Denies fever(s), Denies frequent falls, Denies weakness, Denies weight gain and Denies weight loss ENT Denies dizziness Card Denies chest pain, Denies leg edema, Denies lightheadedness, Denies palpitations, Denies dyspnea and Denies dyspnea on exertion Resp Denies cough, Denies dyspnea and Denies dyspnea on exertion GI Denies hematochezia Musc Denies abnormal gait, Denies muscle weakness, Denies numbness, Denies radiating pain into limb and Denies tingling Neuro Denies abnormal gait, Denies dizziness, Denies frequent falls, Denies numbness, Denies tingling and Denies weakness Endo Denies fatigue and Denies palpitations Physical Exam Vital Signs: Last Vital Signs Pulse 68 05/17/24 10:10 BP 130/82 05/17/24 10:10 BMI result Body Mass Index 30.0 GENERAL APPEARANCE: in no acute distress, pleasant. NECK: no carotid bruit, no jugular venous distention. SKIN: no suspicious lesions, warm and dry. HEART: no murmurs, regular rate and rhythm. LUNGS: clear to auscultation bilaterally. ABDOMEN: soft, nontender. EXTREMITIES: no edema. PERIPHERAL PULSES: equal. NEUROLOGIC: No gross deficits, AAO X 3 Office Procedures EKG Details: Sinus rhythm 68 beats per minute, normal EKG, QTC 438 milliseconds. [id number], Complete Assessment & Plan Assessment & Plan (1) Hypercholesterolemia: Code(s): E78.00 - Pure hypercholesterolemia, unspecified Category: Medical (2) Hypertension: Code(s): I10 - Essential (primary) hypertension Category: Medical (3) Spontaneous dissection of coronary artery: Comment: STEMI with right posterolateral branch dissection in 2016. Code(s): I25.42 - Coronary artery dissection Category: Medical Plan Very pleasant 59-year-old female who is here for follow-up. She has background history of spontaneous coronary artery dissection in 2015. This was conservatively managed and symptoms improved. In 2022 she had NSTEMI in the setting of elevated blood pressures. She underwent cardiac catheterization where no significant coronary disease was noticed and actually the previously occluded posterolateral branch from right coronary artery was also open. She has been on antihypertensive therapy since then her blood pressure has been well controlled. She has been diagnosed with sleep apnea and has been prescribed CPAP. She has elevated cholesterol with LDL of 147. She had some issues with atorvastatin before. We will start her on 10 mg of Crestor once a week for now. Thank you for allowing me to participate in the care of your patient. Please feel free to contact me if you have any questions. Medications: New rosuvastatin 10 mg PO DAILY 30 tabs 3RF E78.00 - Pure hypercholesterolemia, unspecified rosuvastatin 10 mg PO .once a week 30 tabs 3RF E78.00 - Pure hypercholesterolemia, unspecified Coding Level of Care Code Est Pt Level 4 (30598) Diagnoses Hypercholesterolemia E78.00 Hypertension I10 Spontaneous dissection of coronary artery I25.42 CPT Codes EKG - CPT: 59777-[id number], Complete ([id number])
== END 2024-05-17 10:28 | disposition home or self-care (01) ==
LOC: HO.HCS 10:05
PROVIDERS: PCP Internal Medicine; Visit Provider Internal Medicine Cardiovascular Disease
DX: E78.00 Pure hypercholesterolemia, unspecified (principal); I10 Essential (primary) hypertension; I25.42 Coronary artery dissection
CPT/HCPCS: 93010; 99214

== ENCOUNTER → 2024-05-17 10:05 | Outpatient (BNVA) | payer OTHER, SELFPAY | PROVIDERS: PCP Internal Medicine; Visit Provider Internal Medicine Cardiovascular Disease | DX: E78.00 Pure hypercholesterolemia, unspecified (principal); I10 Essential (primary) hypertension; I25.42 Coronary artery dissection; I25.2 Old myocardial infarction | CPT/HCPCS: 93005 ==

== ENCOUNTER 2024-06-09 08:30 | Outpatient (REF) | payer OTHER, SELFPAY ==
--- OUTSIDE RECORDS SUMMARY | 2024-06-09 08:47 | XMS_ITS | Patient Health Record ---
Author Organization [facility] Address [address] [place] [address] Care Team Providers Care Info Analyst Name Role Phone Po Tamy MCBRIDE Primary Care Provider Benito Maynard [phone] ALLERGIES Allergen (clinical drug ingredient) Drug/Non Drug Allergy documented on EMR Reaction Allergy Type Onset Date Status naproxen Naproxen sensitive Drug Allergy Active REASON FOR REFERRAL No Information MEDICATIONS Medication SIG (Take, Route, Frequency, Duration) Notes Start Date End Date Status Omeprazole 20 MG Orally Act valorie Vitamin C Active Magnesium 250 MG 1 tablet with a meal Orally Once a day for 30 day(s) Active Vitamin D3 1000 UNIT 1 capsule Orally On ce a day prn Active Omeprazole 20mg Not- Taking CeleXA 10mg Not-Taki ng Advil PRN-rarely Active Claritin Active Metoprolol Succinate ER 25 MG 3 tablet Orally Once a day Active amLODIPine Besylate 5 MG 1 tablet Orally Once a day Active IMMUNIZATIONS Vaccine Route Administration Date Status Comme nts Influenza Unknown 07/31/2020 Refused SOCIAL HISTORY Sex Assigned At : Social History Observation Description Sex Assigned At Unknown PROBLEMS Problem Type ICD Code Onset Dates Problem Status W/U Status Risk SNOMED Code Notes Problem Esophageal reflux (K21.9) Active confirmed Esophageal reflux (589445988) Problem Encounter for screening for malignant neoplasm of colon (Z12.11) Active confirmed 910021347 Problem Encounter for screening for malignant neoplasm of rectum (Z12.12) Active confirmed Screening for malignant neoplasm of rectum (274811811) Problem Abdominal pain, epigastric (R10.13) Active confirmed 65798016 Problem Gastroesophageal reflux disease, esophagitis presence not specified (K21.9) Active confirmed 191957213 Problem Diverticulosis of sigmoid colon (K57.30) Active confirmed Diverticulosis of sigmoid colon (451022196) Problem Gastroesophageal reflux disease, unspecified whether esophagitis present (K21.9) Active confirmed 285437662 PLAN OF TREATMENT Future Test Test Name Order Date UPPER GI ENDOSCOPY 06/11/2015 COLONOSCOPY 06/11/2015 UPPER GI ENDOSCOPY 05/25/2019 COLONOSCOPY 05/25/2019 UPPER GI ENDOSCOPY 07/31/2020 COLONOSCOPY 07/31/2020 Insurance Providers Payer Name Payer Address Payer Phone Subscriber Number Group Number Insured Name Patient Relationship to Insured Coverage Start Date Coverage End Date [facility] [address] [place] [phone] [id number] JERAMIE BOB Self - patient is the insured MEDICAL (GENERAL) HISTORY Medical History History ICD Code Hypertension EGD in 02/2010--gastritis-neg. H. pylori , neg. Barium swallow in 2012 Denies DM,CVA,Lung disease,renal disease 10/2012--neg cardiac catheterization at [facility]--no [place] Kidney stones-s/p ESWL Anxiety [place] 04/2015--had cardiac cath at [facility]--no blockage--she describes a dissection in one of the coronary arteries--no stents, no angioplasty. Negative abdominal U/S in 2009, 2012, an d 04/2020 Surgical History Surgery Date(Month/Year) C- section Hysterectomy and removal of the left ova ry for fibroids 07/2012
--- OUTSIDE RECORDS SUMMARY | 2024-06-09 08:47 | XMS_ITS | Patient Health Record ---
Author Organization [employer] [facility] Address [address] [place] [address] Care Team Providers Care Cat Tender Name Role Phone YURY MEADOWS M.D. Primary Care Provider Padmaja Coronel Unavailable [phone] Reason For Referral No Information Medications Medication SIG (Take, Route, Frequency, Duration) Notes Start Date End Date Status Vitamin D-3 1000 UNIT 1 capsule Orally O nce a day Active amlodipine 5MG ORAL daily for -3 Gagandeep-MJ 06/30/2013 Active Metoprolol Tartrate 75MG 1 ORAL twice daily for -3 Gagandeep-MJ 06/30/2013 Active Social History Tobacco Use: Social History Observation Description Date Details (start date - stop date) Never Smoker NA - NA Tobacco Use/Smoking Question Answer Notes Are you a nonsmoker Alcohol Screen (Audit-C) Question Answer Notes Did you have a drink contain ing alcohol in the past year? Yes How often did you have a dri nk containing alcohol in the past year? 2 to 4 times a month (2 points) How many drinks did you have on a typical day when you were drinking in the past year? 1 or 2 drinks (0 point) How often did you have 6 or more drinks on one occasion in the past year? Never (0 point) Points 2 Interpretation Negative Sexual History Question Answer Notes Had sex in the past 12 months (vaginal, oral, or anal)? Yes with Men only Prevention strategies discussed: Other Problems Problem Type SNOMED Code ICD Code Onset Dates Problem Status W/U Status Risk Notes Problem Menopause (999992936) Menopausal and female climacteric states (N95.1) Active confirmed Problem Submucous leiomyoma of uterus (63834566) Submucous leiomyoma of uterus (218.0) Active confirmed Diag Problem Leiomyoma of uterus (83657789) Leiomyoma of uterus, unspecified (218.9) Active confirmed Major Problem Uric acid nephrolithiasis (467734684) Uric acid nephrolithiasis (274.11) Active confirmed Major Problem Benign essential hypertension (4055103) Essential hypertension, benign (401.1) Active confirmed Major Problem Excessive and frequent menstruation (604758742) Excessive or frequent menstruation (626.2) Active confirmed Major Problem Gynecological examination normal (809043218917677) Routine gynecological examination (V72.31) Active confirmed Problem Insertion of intrauterine contraceptive device (41795094) Insertion of intrauterine contraceptive device (V25.1) Active confirmed Major Problem Surveillance of intrauterine device contraception done (071779531741563) Surveillance of previously prescribed intrauterine contraceptive device (V25.42) Active confirmed Other Plan Of Treatment Pending Test Test Name Order Date MAMMOGRAM, SCREENING 07/25/2014 MM Digital Mammo Screening 07/14/2016 MM Digital Mammo Screening 08/16/2017 Insurance Providers Payer Name Payer Address Payer Phone Subscriber Number Group Number Insured Name Patient Relationship to Insured Coverage Start Date Coverage End Date [facility] [address] [place] [address] [id number] JERAMIE BOB Self - patient is the insured Medical (General) History Medical History History ICD Code Submucous leiomyoma of uterus D25.0 Essential (primary) hypertension I10 Leiomyoma of uterus, unspecified D25.9 Excessive and frequent menstruation with regular cycle N92.0 Calculus of kidney N20.0 Spontanueaous Cardiac Artery Disection Surgical History Surgery Date(Month/Year) Lithotripsy Laparoscopic Hysterectomy/LSO Hospitalization History Reason Date(Month/Year) 1 Deliveries 1 Vaginal Delivery In hospital Heart Attack 04/2015
[2024-06-09 09:42] LABS: Cholesterol 191 mg/dL (<200); HDL Cholesterol 51 mg/dL (>40); LDL Cholesterol Calculated 123 mg/dL (<100); Triglycerides 87 mg/dL (<150)
== END 2024-06-09 08:31 | disposition home or self-care (01) ==
LOC: HO.LAB 08:30
PROVIDERS: PCP Internal Medicine; Visit Provider Internal Medicine Cardiovascular Disease
DX: E78.00 Pure hypercholesterolemia, unspecified (principal); I25.42 Coronary artery dissection
CPT/HCPCS: 36415; 80061; 83090

== ENCOUNTER 2024-06-29 14:26 | Outpatient (AMB) | payer OTHER, SELFPAY ==
--- NOTE | 2024-06-29 14:28 | A.OFFPC_ITS ---
Vital Signs 06/29/24 14:32 Height 5 ft 4 in Weight 166 lb BMI 28.5 BP 124/78 Respiration 16 Pulse 70 Pulse Source Pulse Oximeter Temp 97.5 F Pulse Oximetry (%) 98 Oxygen Delivery Method Room Air Intake Visit Reasons: Cholesterol, CAD Progress Man Required: No Accompanied by: Self / Same As Patient Allergies naproxen Allergy (Unknown, Verified 06/29/24 14:30) Unknown perindopril Allergy (Unknown, Verified 06/29/24 14:30) Unknown atorvastatin Adverse Reaction (Intermediate, Verified 06/29/24 14:30) myalgia lisinopril Adverse Reaction (Intermediate, Verified 06/29/24 14:30) cough Tobacco use date assessed: 06/29/24 Dental Screening Dental Screen Date: 07/14/23 [facility] Medical History Hypercholesterolemia Breast cancer screening by mammogram Left nephrolithiasis Abnormal stress ECG with treadmill Chest pain Preoperative cardiovascular examination On beta jarrett at home Anemia Chest pain Splenic cyst Vasospastic angina Anxiety Renal calculi Thyroid nodule Hypertension Surgical History History of esophagogastroduodenoscopy (EGD) S/P cardiac catheterization History of lithotripsy History of total hysterectomy History of section Family History Father Mouth cancer Mother T-cell lymphoma Hypertension Maternal Uncle Stomach cancer Paternal Aunt Stomach cancer Colon cancer Paternal Uncle Myocardial infarction Cancer of kidney Son No problems noted. Daughter No problems noted. Social History Housing: House Alcohol intake: current Alcohol intake frequency: a few times a week Comment: once a week 1 glass - 2 glass Patient Tobacco Use Status: Never used Tobacco e-Cigarette/Vaping Use: Never Used Second Hand Smoke Exposure: No service: No Current occupational status: employed Current occupation: [employer] store, right handed Current occupational exposures/hazards: No Cognitive needs: No Hearing needs: No Vision needs: No Questionnaire PHQ-9 Over the last 2 weeks, how often have you been bothered by any of the following problems? 1. Little interest or pleasure in doing things: not at all 2. Feeling down, depressed, or hopeless: not at all 3. Trouble falling or staying asleep, or sleeping too much: not at all 4. Feeling tired or having little energy: not at all 5. Poor appetite or overeating: not at all 6. Feeling bad about yourself - or that you are a failure or have let yourself or your family down: not at all 7. Trouble concentrating on things, such as reading the newspaper or watching television: not at all 8. Moving or speaking so slowly that other people could have noticed. Or the opposite - being so fidgety or restless that you have been moving around a lot more than usual: not at all 9. Thoughts that you would be better off or of hurting yourself in some way: not at all Total score: 0 Depression Screening Interpretation: Negative Depression Screening Done: Yes Source: Developed by Drs. Benito Dowell, Yris Smith, Mazin Gutierrez and colleagues, with an educational jodie from [employer]. Thrive Questionnaire Date Thrive assessed: 06/29/24 I am a: Patient What is your living situation today?: I have a steady place to live Within the past 12 months, did the food you bought not last and you didn't have the money to get more?: Never true Within the past 12 months, did you worry whether your food would run out before you got money to buy more?: Never true Do you have trouble paying for medicines?: No Do you have trouble getting transportation to medical appointments?: No Do you have trouble paying your heating and electricity bill?: No Do you have trouble taking care of your child, family member or friend?: No Do you have trouble with day-to-day activities such as bathing, preparing meals, shopping, managing finances, etc.?: No Are you currently unemployed and looking for a job?: No Are you interested in more education?: No THRIVE Score: 0 AUDIT C Alcohol Use Questionnaire (AUDIT-C) 1. How often do you have a drink containing alcohol?: Monthly or less 2. How many drinks containing alcohol do you have on a typical day when you are drinking?: 1 or 2 3. How often do you have six or more drinks on one occasion?: Never Total Score: 1 Score Reviewed/Action Taken: No ARIES-7 AMB Questionnaire ARIES-7 Date ARIES - 7 assessed: 06/29/24 Feeling nervous, anxious, or on edge: 0 = Not at all Not being able to stop or control worryin = Not at all Worrying too much about different things: 0 = Not at all Trouble relaxin = Not at all Being so restless that it is hard to sit still: 0 = Not at all Becoming easily annoyed or irritable: 0 = Not at all Feeling afraid as if something awful might happen: 0 = Not at all Total ARIES-7 score (0-4 normal; 5-9 mild; 10-14 moderate; 15-21 severe): 0 Source: Developed by Drs. Benito Dowell, Yris Smith, Mazin Gutierrez and colleagues, with an educational jodie from [employer]. Physical exam (Primary Care) Vital Signs: Last Vital Signs Temp 97.5 F 06/29/24 14:32 Pulse 70 06/29/24 14:32 Resp 16 06/29/24 14:32 BP 124/78 06/29/24 14:32 Pulse Ox 98 06/29/24 14:32 Oxygen Delivery Method Room Air 06/29/24 14:32 BMI result Body Mass Index 28.5 Tobacco/Smoking Status: Tobacco use Status Tobacco use date assessed 06/29/24 06/29/24 14:38 Patient Tobacco Use Status Never used Tobacco 06/29/24 14:38 e-Cigarette/Vaping Use Never Used 06/29/24 14:38 PHQ-9: PHQ-9 Score PHQ-9: Total score 0 06/29/24 14:38 Depression Screening Interpretation: Negative Thrive Assessment: Date of Thrive Assessment Date Thrive assessed 06/29/24 06/29/24 14:38 Const General: alert; No acute distress Eyes Conjunctivae: conjunctivae normal Resp Auscultation: clear to auscultation bilaterally Cardio Rate: regular rate Rhythm: regular rhythm GI Inspection: Yes normal to inspection Extrem General: Yes normal to inspection and No edema Coding Level of Care Code Est Pt Level 4 (58328) Diagnoses Hypercholesterolemia E78.00 Obstructive sleep apnea G47.33 Breast cancer screening by mammogram Z12.31 Impaired glucose tolerance R73.02 Generalized anxiety disorder F41.1 Hypertension I10 Assessment & Plan Assessment & Plan (1) Hypercholesterolemia: Code(s): E78.00 - Pure hypercholesterolemia, unspecified Category: Medical Plan: Avoid fried foods, chicken skin, eggs, butter margarine, pastries and meat. Be it pork or beef they have a lot of cholesterol patient has been changed to rosuvastatin 10 mg once a week? (2) Obstructive sleep apnea: Comment: Sleep study done 08/23/2023 moderately severe AHI of 16 supine AHI of 43 CPAP therapy with auto PAP mode pressure setting 6-20 cm Code(s): G47.33 - Obstructive sleep apnea (adult) (pediatric) Category: Medical Plan: Continue to use the CPAP more than 4 hours a night and benefits from this. (3) Breast cancer screening by mammogram: Code(s): Z12.31 - Encounter for screening mammogram for malignant neoplasm of breast Category: Medical Plan: Patient is reminded about mammogram (4) Impaired glucose tolerance: Code(s): R73.02 - Impaired glucose tolerance (oral) Category: Medical Plan: Decrease the amount of carbohydrate intake, pasta, bread, rice and potatoes are all sugar and that is aside from all the sweet stuff, remember that fruits are good but they are Sweet also. (5) Generalized anxiety disorder: Code(s): F41.1 - Generalized anxiety disorder Category: Medical Plan: Stable (6) Hypertension: Code(s): I10 - Essential (primary) hypertension Category: Medical Plan: Continue with blood pressure medication. Decrease salt intake and exercise on amlodipine 5 mg once a day metoprolol 100 mg once a day Plan History of Present Illness The patient is a 59-year-old female presenting for the management of chronic conditions. She has a longstanding history of essential hypertension, currently managed with amlodipine and metoprolol, with recent readings demonstrating well- controlled blood pressure potentially augmented by recent weight loss. The patient manages hypercholesterolemia with rosuvastatin, noticeably improving her cholesterol levels, evidenced by her recent lab work. The patient reports a history of coronary artery dissection, with ongoing cardiology evaluation showing no significant coronary disease presently. She also manages obstructive sleep apnea using CPAP therapy, maintaining compliance despite occasional challenges. Her generalized anxiety disorder is noted, but currently not detailed regarding specific management. The patient has reported a recent 9-pound weight loss, which appears contributory to the improvement in several of her chronic conditions. She is diligent with maintaining her screening schedule, although her mammogram is currently pending completion. Health Maintenance - Mammogram is due for scheduling. - Recent weight loss of 9 pounds noted. - CPAP use reinforced for sleep apnea management. - Blood pressure regularly monitored and well-controlled with prescribed antihypertensives. - Encouraged continuation of dietary management for cholesterol control. - Colonoscopy is up-to-date and due next year. - Immunity consideration and carefulness discussed due to seasonal flu, COVID- 19, and RSV. Social History - Employment: Works at a store; interacts with many individuals daily, claims a strong immune system due to this exposure. - Reports trying to maintain a healthy diet contributing to recent weight loss. - Active in daily life activities, including traveling to visit family. Review of Systems - Cardiovascular: Denies chest pain. - Respiratory: Reports using CPAP, denies daytime fatigue. - General: Reports recent weight loss of 9 pounds. - Neurological: Denies dizziness, headaches. Physical Exam Results - Labs: Total cholesterol: 191 mg/dL; LDL-cholesterol: 123 mg/dL; HDL- cholesterol: reported as above 50 mg/dL. Homocysteine levels are normal. Plan The patient will maintain her regimen of amlodipine and metoprolol for hypertension, with stable blood pressure readings corroborating its effectiveness. Rosuvastatin is continued weekly, taking into account her current dietary regimen's positive impact on lipid levels. CPAP adherence is reinforced for sleep apnea, with recommendations for minimum nightly usage duration. Scheduling for mammogram completion is advised, and continued vigilance for preventive care against seasonal illnesses is emphasized due to her frequent public interactions. Further evaluation for her anxiety management might be warranted. Patient was informed and verbally consented to the use of an ambient scribe for clinic note documentation during this visit. Discussion Notes I discussed with the patient the stability in her blood pressure and cholesterol levels with current treatment regimens and advised continuing with them given their efficacy. I emphasized the importance of CPAP adherence for sleep apnea management and highlighted the pending mammogram requirement for routine screening. We reviewed the significance of disease prevention behaviors, such as vaccination and precautionary measures given current viral concerns. I advised on considering further evaluation for anxiety disorder management and encouraged ongoing adherence to her healthy lifestyle changes. Patient Instructions - Continue taking amlodipine 5 mg and metoprolol 100 mg daily for blood pressure. - Continue taking rosuvastatin 10 mg weekly as managed. - Use CPAP machine nightly for more than 4 hours. - Schedule and complete a mammogram as soon as possible. - Maintain a healthy diet and continue monitoring weight for overall health benefits. - Practice precautions during flu season and COVID-19 to minimize infection risks. Orders: Orders Free T4 (Free Thyroxine) Today R73.02 - Impaired glucose tolerance (oral) Vitamin D 25-OH Total Today R73.02 - Impaired glucose tolerance (oral) Magnesium Today R73.02 - Impaired glucose tolerance (oral) MM tomosynthesis screening BI Today Z12.31 - Encounter for screening mammogram for malignant neoplasm of breast Hemoglobin A1c Today R73.02 - Impaired glucose tolerance (oral) Comprehensive Met. Panel Today R73.02 - Impaired glucose tolerance (oral) Complete Blood Count Auto Diff Today R73.02 - Impaired glucose tolerance (oral) Thyroid Stimulating Hormone Today R73.02 - Impaired glucose tolerance (oral) Lipid Panel Today E78.00 - Pure hypercholesterolemia, unspecified, R73.02 - Impaired glucose tolerance (oral) Vitamin B12 and Folate Today R73.02 - Impaired glucose tolerance (oral)
[2024-06-29 14:32] VITALS: BP 124/78; PULSE 70; RESP 16; TEMP 36.4; O2SAT 98; BMI 28.5
--- OUTSIDE RECORDS SUMMARY | 2024-06-29 17:47 | XMS_ITS | Patient Health Record ---
Author Organization [facility] Address [address] [place] [address] Care Team Providers Care Shearing Supervisor Name Role Phone Po Tamy MCBRIDE Primary Care Provider Benito Maynard [phone] Allergies Allergen (clinical drug ingredient) Drug/Non Drug Allergy documented on EMR Reaction Allergy Type Onset Date Status naproxen Naproxen sensitive Drug Allergy Active Reason For Referral No Information Medications Medication [...] 1 tablet Orally Once a day Active Immunizations Vaccine Route Administration Date Status Comme nts Influenza Unknown 07/31/2020 Refused Problems Problem Type SNOMED Code ICD Code Onset Dates Problem Status W/U Status Risk Notes Problem Esophageal reflux (731889701) Esophageal reflux (K21.9) Active confirmed Problem 342308979 Encounter for screening for malignant neoplasm of colon (Z12.11) Active confirmed Problem Screening for malignant neoplasm of rectum (615470910) Encounter for screening for malignant neoplasm of rectum (Z12.12) Active confirmed Problem 53174293 Abdominal pain, epigastric (R10.13) Active confirmed Problem 201419063 Gastroesophageal reflux disease, esophagitis presence not specified (K21.9) Active confirmed Problem Diverticulosis of sigmoid colon (279151998) Diverticulosis of sigmoid colon (K57.30) Active confirmed Problem 980900993 Gastroesophageal reflux disease, unspecified whether esophagitis present (K21.9) Active confirmed Plan Of Treatment Future Test Test Name Order Date UPPER GI ENDOSCOPY 06/11/2015 COLONOSCOPY 06/11/2015 UPPER GI ENDOSCOPY 05/25/2019 COLONOSCOPY 05/25/2019 UPPER GI ENDOSCOPY 07/31/2020 COLONOSCOPY 07/31/2020 Insurance Providers Payer Name Payer Address Payer Phone Subscriber Number Group Number Insured Name Patient Relationship to Insured Coverage Start Date Coverage End Date [facility] [address] [place] [phone] [id number] JERAMIE BOB Self - patient is the insured Medical (General) History Medical History History ICD Code Hypertension EGD in 02/2010--gastritis-neg. H. pylori , neg. Barium swallow in 2012 Denies DM,CVA,Lung disease,renal disease 10/2012--neg cardiac catheterization at [facility]--no ID Kidney stones-s/p ESWL Anxiety ID 04/2015--had cardiac cath at [facility]--no blockage--she describes a dissection in one of the coronary arteries--no stents, no angioplasty. Negative abdominal U/S in 2009, 2012, an d 04/2020 Surgical History Surgery Date(Month/Year) C- section Hysterectomy and removal of the left ova ry for fibroids 07/2012
--- OUTSIDE RECORDS SUMMARY | 2024-06-29 17:47 | XMS_ITS | Patient Health Record ---
Author Organization [email or web address] [facility] Address [address] [place] [address] Care Team Providers Care Claim Rep Name Role Phone YURY MEADOWS M.D. Primary Care Provider Padmaja Coronel Unavailable [phone] Reason For Referral No Information Medications Medication [...] Status W/U Status Risk Notes Problem Menopause (249835427) Menopausal and female climacteric states (N95.1) Active confirmed Problem Submucous leiomyoma of uterus (01185449) Submucous leiomyoma of uterus (218.0) Active confirmed Diag Problem Leiomyoma of uterus (53553934) Leiomyoma of uterus, unspecified (218.9) Active confirmed Major Problem Uric acid nephrolithiasis (062780279) Uric acid nephrolithiasis (274.11) Active confirmed Major Problem Benign essential hypertension (7359694) Essential hypertension, benign (401.1) Active confirmed Major Problem Excessive and frequent menstruation (859594490) Excessive or frequent menstruation (626.2) Active confirmed Major Problem Gynecological examination normal (765798941381934) Routine gynecological examination (V72.31) Active confirmed Problem Insertion of intrauterine contraceptive device (55876940) Insertion of intrauterine contraceptive device (V25.1) Active confirmed Major Problem Surveillance of intrauterine device contraception done (761577491707002) Surveillance of previously prescribed intrauterine contraceptive device (V25.42) Active confirmed Other Plan Of Treatment Pending Test Test Name Order Date MAMMOGRAM, SCREENING 07/25/2014 MM Digital Mammo Screening 08/16/2017 MM Digital Mammo Screening 07/14/2016 Insurance Providers Payer Name Payer Address Payer Phone Subscriber Number Group Number Insured Name Patient Relationship to Insured Coverage Start Date Coverage End Date [facility] [address] [place] [address] [id number] JERAMIE BOB Self - patient is [...]
== END 2024-06-29 15:08 | disposition home or self-care (01) ==
PROVIDERS: PCP Internal Medicine; Visit Provider Internal Medicine
DX: E78.00 Pure hypercholesterolemia, unspecified (principal); G47.33 Obstructive sleep apnea (adult) (pediatric); Z12.31 Encounter for screening mammogram for malignant neoplasm of breast; R73.02 Impaired glucose tolerance (oral); F41.1 Generalized anxiety disorder; I10 Essential (primary) hypertension

== ENCOUNTER 2024-11-20 10:33 | Outpatient (AMB) | payer OTHER, SELFPAY ==
[2024-11-20 10:39] VITALS: BP 120/80; PULSE 70; BMI 28.0
--- NOTE | 2024-11-20 10:39 | MHC.OFFVIS ---
Vital Signs 11/20/24 10:39 Height 5 ft 4 in Weight 163 lb 2.273 oz BMI 28.0 BP 120/80 Blood Pressure Location Lt brachial Position Sitting Pulse 70 Intake Visit Reasons: 6m follow up Intake Note: 6 month follow-up feeling good c/o sometimes having palpitations but coughing helps Welding Machine Operator Helper Gas Required: No Allergies naproxen Allergy (Unknown, Verified 06/29/24 14:30) Unknown perindopril Allergy (Unknown, Verified 06/29/24 14:30) Unknown atorvastatin Adverse Reaction (Intermediate, Verified 06/29/24 14:30) myalgia lisinopril Adverse Reaction (Intermediate, Verified 06/29/24 14:30) cough Medication List - Last Reconciled 11/20/24 by Oscar Cyr MD amlodipine 5 mg PO DAILY 90 days ascorbate calcium (vitamin C) 1 g PO DAILY aspirin 81 mg PO DAILY [AUTOPAP 6-20 cm H2O humidified air Sleep study done 08/23/2023 moderately severe AHI of 16 supine AHI of 43 CPAP therapy with auto PAP mode pressure setting 6-20 cm] cholecalciferol (vitamin D3) 25 mcg PO DAILY magnesium 200 mg PO DAILY metoprolol succinate ER 100 mg PO DAILY HPI Comments Details: 59-year-old female here for follow-up. She had inferior ST elevations and 2016 and presented with central chest discomfort. She was taken for cardiac catheterization which showed some concern about dissection in a small right posterolateral branch. 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 She has done well since then. Recently she complained of upper back discomfort to Dr. Pascal. This was quite random and happen at rest and with activities. She underwent stress testing. She initially had exercise stress tests where she was able to exercise for 10.1 Mets and EKG met criteria for ischemia with [address] depressions in V6 and inferior leads. She did not have any chest discomfort or back discomfort during exercise and stop because of fatigue. Subsequent to that she had stress Mibi where again she was able to exercise for 10.4 metabolic equivalents and had ischemic changes similar to before. Nuclear imaging was normal. She did not have any symptoms during stress tests in given normal perfusion imaging we decided to medically treat her and now perform any further invasive assessment. She has been stable and has no chest discomfort back issues. On follow-up today she is doing well. She has no chest discomfort or shortness of breath. Taking medications regularly. She has some questions about her blood pressure being slightly low. She was in [place] and checked her blood pressure and was 106/60. She said she did not have any dizziness or lightheadedness at that time. Denying any similar symptoms now too. 02/17/23: She returns for follow-up. She recently got admitted to [facility] because she had chest discomfort and ruled in for NSTEMI. She underwent cardiac catheterization which showed normal coronary arteries without any significant coronary disease and in fact her RPL branch which was previously dissected in 2016 was also normal appearing. It was felt that her blood pressure was high and maybe she had a type 2 injury to to high blood pressure. She returns for follow-up and is denying any significant issues. She is single blood pressure has been well controlled at home. She is taking medication regularly. No [id number] medications specifically no decongestants used. 03/29/23: She returns for f/u. She has been doing well. Occasionally gets achiness on the chest which improves with movement. No chest pains like before. Blood pressure is controlled. Taking medications regularly. She has not seen Endocrinology yet yet. She is asking about alcohol intake and we discussed in detail about moderate alcohol intake. 07/26/2023: She returns for follow-up. She has seen endocrinology and pheochromocytoma has been ruled out by her report. She is due to get a renal ultrasound to rule out renal artery stenosis. No chest discomfort or shortness of breath. Blood pressure is well controlled on current regimen. 11/10/2023: She is here for follow-up. She has been diagnosed sleep apnea and is using CPAP mask and is feeling better. Blood pressure is well controlled. She had lipid panel performed where LDL cholesterol was 145 and total cholesterol was 230. She was advised by Dr. Pascal to start statin therapy but she is unsure about it. I have advised her that her LDL level is high. After some discussion we have decided to repeat it in a month's time. No chest discomfort or shortness of breath. Doing well generally. 05/17/2024: She returns for follow-up. No chest pain or shortness of breath. Blood pressure is well controlled. Not very active during the wintertime. Overall clinically stable. 11/20/2024, she returns for follow-up. She has no chest discomfort shortness of breath. She returned from [place] in September and had some palpitations. She had palpitations for few sec which improved with coughing. She had it for couple of days off and on lasting for few sec. Since then she has not had any further episodes. She is saying that 3 years ago she had similar episode which was similar frequency and duration. No dizziness or syncope. [facility] Medical History Hypercholesterolemia Breast cancer screening by mammogram Left nephrolithiasis Abnormal stress ECG with treadmill Chest pain Preoperative cardiovascular examination On beta jarrett at home Anemia Chest pain Splenic cyst Vasospastic angina Anxiety Renal calculi Thyroid nodule Hypertension Surgical History History of esophagogastroduodenoscopy (EGD) S/P cardiac catheterization History of lithotripsy History of total hysterectomy History of section Family History Father Mouth cancer Mother T-cell lymphoma Hypertension Maternal Uncle Stomach cancer Paternal Aunt Stomach cancer Colon cancer Paternal Uncle Myocardial infarction Cancer of kidney Son No problems noted. Daughter No problems noted. Social History Housing: House Alcohol intake: current Alcohol intake frequency: a few times a week Comment: once a week 1 glass - 2 glass Patient Tobacco Use Status: Never used Tobacco e-Cigarette/Vaping Use: Never Used Second Hand Smoke Exposure: No service: No Current occupational status: employed Current occupation: liquor store, right handed Current occupational exposures/hazards: No Cognitive needs: No Hearing needs: No Vision needs: No Review of Systems Const Denies chills, Denies fatigue, Denies fever(s), Denies frequent falls, Denies weakness, Denies weight gain and Denies weight loss ENT Denies dizziness Card Denies chest pain, Denies leg edema, Denies lightheadedness, Denies palpitations, Denies dyspnea, Denies dyspnea on exertion, Denies orthopnea and Denies other (loss of consciousness) Resp Denies cough, Denies dyspnea and Denies dyspnea on exertion GI Denies hematochezia and Denies change in stool character Musc Denies abnormal gait, Denies muscle weakness, Denies numbness, Denies radiating pain into limb and Denies tingling Neuro Denies abnormal gait, Denies dizziness, Denies frequent falls, Denies numbness, Denies tingling and Denies weakness Endo Denies fatigue and Denies palpitations Physical Exam Vital Signs: Last Vital Signs Pulse 70 11/20/24 10:39 BP 120/80 11/20/24 10:39 BMI result Body Mass Index 28.0 GENERAL APPEARANCE: in no acute distress, pleasant. NECK: no carotid bruit, no jugular venous distention. SKIN: no suspicious lesions, warm and dry. HEART: no murmurs, regular rate and rhythm. LUNGS: clear to auscultation bilaterally. ABDOMEN: soft, nontender. EXTREMITIES: no edema. PERIPHERAL PULSES: equal. NEUROLOGIC: No gross deficits, AAO X 3 Assessment & Plan Assessment & Plan (1) Hypertension: Code(s): I10 - Essential (primary) hypertension Category: Medical (2) Spontaneous dissection of coronary artery: Comment: STEMI with right posterolateral branch dissection in 2016. Code(s): I25.42 - Coronary artery dissection Category: Medical Plan [age] year female here for follow-up. She has background history of spontaneous coronary artery dissection with NSTEMI in 2022 when the posterolateral branch of the right coronary artery was open and SCAD was healed. It was felt that her 2nd episode of NSTEMI and was due to elevated blood pressure. She has been on antihypertensive therapy since then and has been doing well. She is taking baby aspirin. She has been palpitations lasting for few sec improved with coughing. She had previous episodes 3 years apart. I think currently we can observe this. If she has frequent episodes of palpitations then we can do a Holter monitor. She will follow up with us in 6 months. Thank you for allowing me to participate in the care of your patient. Please feel free to contact me if you have any questions. Coding Level of Care Code Est Pt Level 4 (07881) Diagnoses Hypertension I10 Spontaneous dissection of coronary artery I25.42
--- OUTSIDE RECORDS SUMMARY | 2024-11-20 11:44 | XMS_ITS | Patient Health Record ---
Author Organization [facility] Address [address] [place] [address] Care Team Providers Care Power Plant Assistant Name Role Phone YURY MEADOWS M.D. Primary Care Provider Padmaja Coronel Unavailable [phone] Reason For Referral No Information Medications Medication SIG (Take, Route, Frequency, Duration) Notes Start Date End Date Status Vitamin D-3 1000 UNIT 1 capsule Orally O nce a day Active amlodipine 5MG ORAL daily; Duration: -3 Gagandeep-MJ 06/30/2013 Active Metoprolol Tartrate 75MG 1 ORAL twice da isaura; Duration: -3 Gagandeep-MJ 06/30/2013 Active Social History Tobacco [...] Status W/U Status Risk Notes Problem Menopause (448383175) Menopausal and female climacteric states (N95.1) Active confirmed Problem Submucous leiomyoma of uterus (14402717) Submucous leiomyoma of uterus (218.0) Active confirmed Diag Problem Leiomyoma of uterus (78510364) Leiomyoma of uterus, unspecified (218.9) Active confirmed Major Problem Uric acid nephrolithiasis (025847979) Uric acid nephrolithiasis (274.11) Active confirmed Major Problem Benign essential hypertension (8140897) Essential hypertension, benign (401.1) Active confirmed Major Problem Excessive and frequent menstruation (985757504) Excessive or frequent menstruation (626.2) Active confirmed Major Problem Gynecological examination normal (171378054968909) Routine gynecological examination (V72.31) Active confirmed Problem Insertion of intrauterine contraceptive device (29797272) Insertion of intrauterine contraceptive device (V25.1) Active confirmed Major Problem Surveillance of intrauterine device contraception done (529547504635164) Surveillance of previously prescribed intrauterine contraceptive device (V25.42) Active confirmed Other Plan Of Treatment Pending Test Test Name Order Date MAMMOGRAM, SCREENING 07/25/2014 MM Digital Mammo Screening 08/16/2017 MM Digital Mammo Screening 07/14/2016 Next Appt Details Provider Name:Padmaja Lackey susana, 05/09/2025 02:00:00 PM, [address], [address], [place], [address], Insurance Providers Payer Name Payer Address Payer Phone Subscriber Number Group Number Insured Name Patient Relationship to Insured Coverage Start Date Coverage End Date [facility] [address] [place] [address] [phone] [id number] JERAMIE PERRIN Self - patient is the insured Medical [...]
--- OUTSIDE RECORDS SUMMARY | 2024-11-20 11:44 | XMS_ITS | Patient Health Record ---
Author Organization [facility] Address [address] [place] [address] Care Team Providers Care Panel Raiser Operator Name Role Phone Po Tamy MCBRIDE Primary Care Provider Benito Maynard [phone] Allergies Allergen (clinical drug ingredient) Drug/Non Drug [...] Status W/U Status Risk Notes Problem Esophageal reflu x (K21.9) Active confirmed Problem 426013330 Encounter for screening for malignant neoplasm of colon (Z12.11) Active confirmed Problem Screening for malignant neoplasm of rectum (188870365) Encounter for screening for malignant neoplasm of rectum (Z12.12) Active confirmed Problem 16936152 Abdominal pain, epigastric (R10.13) Active confirmed Problem 163376436 Gastroesophageal reflux disease, esophagitis presence not specified (K21.9) Active confirmed Problem Diverticulosis of sigmoid colon (894879949) Diverticulosis of sigmoid colon (K57.30) Active confirmed Problem 654706257 Gastroesophageal reflux disease, unspecified whether esophagitis present (K21.9) Active confirmed Plan Of Treatment Future Test Test Name Order Date UPPER GI ENDOSCOPY 06/11/2015 COLONOSCOPY 06/11/2015 UPPER GI ENDOSCOPY 05/25/2019 COLONOSCOPY 05/25/2019 UPPER GI ENDOSCOPY 07/31/2020 COLONOSCOPY 07/31/2020 Insurance Providers Payer Name Payer Address Payer Phone Subscriber Number Group Number Insured Name Patient Relationship to Insured Coverage Start Date Coverage End Date [facility] [address] [address] [place] [phone] [id number] JERAMIE BOB Self - patient is the insured Medical (General) History Medical History History ICD Code Hypertension EGD in 02/2010--gastritis-neg. H. pylori , neg. Barium swallow in 2012 Denies DM,CVA,Lung disease,renal disease 10/2012--neg cardiac catheterization at [facility]--no AR Kidney stones-s/p ESWL Anxiety AR 04/2015--had cardiac cath at [facility]--no blockage--she describes a dissection in one of the coronary arteries--no stents, no angioplasty. Negative abdominal U/S in 2009, 2012, an d 04/2020 Surgical History Surgery Date(Month/Year) C- section Hysterectomy and removal of the left ova ry for fibroids 07/2012
--- OUTSIDE RECORDS SUMMARY | 2024-11-20 11:44 | XMS_ITS | Clinical Summary ---
Author Organization [facility] Address [address] [place] [id number] Phone Care Team Providers Care Biological Aide Name Role Phone Tamy Pascal MD Primary Care Provider [phone] Allergies No known active allergies Medications metoprolol succinate (TOPROL-XL) 25 MG 24 hr tablet Take 75 mg by mouth daily. Active amLODIPine (NORVASC) 5 MG tablet Take 5 mg by mouth daily. Active cholecalcifero l (VITAMIN D3) 4,000 unit tabletIndicati ons:5 days a week Take 1,000 Units by mouth. Indications: 5 days a week Active Medication-Miah e Text Vitamin A, D3 50 mcg,E,K2 MK-7 Active COLLAGEN MISC by Miscellaneous route. Active ascorbic acid, vitamin C, (VITAMIN C) 1000 MG tabletIndicati ons:3999-0533 mg as needed Take 1,000 mg by mouth daily. Indications: 1783-9462 mg as needed Active albuterol (PROAIR HFA) 90 mcg/actuation inhaler Inhale 2 puffs into the lungs every 4 (four) hours as needed for wheezing. 18 g Active Additional Information Patient not taking.Reported on 07/08/2021 coenzyme Q10 100 mg capsule Take 100 mg by mouth daily. Active magnesium oxide 250 mg (150 mg elemental) Tab Take 250 mg by mouth daily. Active Active Problems Problem Noted Date Diagnosed Date Arthralgia of multiple sites 06/19/2019 Assessment & Plan (06/21/2019 11:23 PM EST): Due to progressive nature and expanding involvement of small joints I took the liberty of getting a new set of lab work and x-rays to make sure that there are no signs of inflammatory arthritis. Joint protection, energy conservation. Gentle, regular exercise routine. Avoid falls, injuries, overuse. Keep body weight in ideal range for his height. She may benefit from topical cream such as Arnica, Biofreeze, Aspercreme versus medicated patches such as salonpas, icy hot patch 2-3 times daily and if necessary at bedtime x 3 weeks. Call if worse, questions or problems. Thyroid nodule 06/19/2019 Assessment & Plan (06/21/2019 11:18 PM EST): Follow closely with treating physician as scheduled. Renal stones 06/19/2019 Assessment & Plan (06/21/2019 11:21 PM EST): Proper hydration. Follow-up with urologist as scheduled/needed. Coronary artery disease 06/19/2019 Hypertension 06/19/2019 Assessment & Plan (06/21/2019 11:18 PM EST): Continue antihypertensive therapy as prescribed. Avoid added salt in the diet. Aim at BP ~120/80 mmHg Vitamin D insufficiency 06/19/2019 Assessment & Plan (06/21/2019 11:18 PM EST): Serum level requested to make sure that she does not need additional supplementation. Resolved Problems Problem Noted Date Diagnosed Date Resolved Date Secondary hypertension 06/19/201906/19 Immunizations Immunization Administration Dates Next Due Tdap 12/29/2009 Social History Tobacco Use Types Packs/Day Years Used Date Smoking Tobacco: Never Smokeless Tobacco: Never Alcohol Use Standard Drinks/Week Comments Yes 0 (1 standard drink = 0.6 oz pur e alcohol) occasionally Education Answer Date Recorded Are you interested in more education? Not on celestine e 08/21/2022 Are you concerned about learning? Not on file 08/21/2022 No 08/21/2022 No 08/21/2022 Digital Access Answer Date Recorded No 09/19/2022 No 09/19/2022 No 09/19/2022 Reliable internet access at home? Not on file 09/19/2022 Device with a working camera? Not on file Comments Unknown Sex and Gender Information Value Date Recorded Sex Assigned at Not on file Legal Sex Female 10:49 AM EST Gender Identity Not on file Sexual Orientation Not on file Last Filed Vital Signs Vital Sign Reading Time Taken Comments Blood Pressure 145/88 07/08/2021 1:22 PM EDT Pulse 75 07/08/2021 1:22 PM EDT Temperature 36.7 C (98 F) 07/08/2021 1:22 PM EDT Respiratory Rate 16 07/08/2021 1:22 PM EDT Oxygen Saturation 99% 07/08/2021 1:22 PM EDT Inhaled Oxygen Concentration - - Weight 73.5 kg (162 lb) 02/17/2021 1:58 PM EDT Height 162.6 cm (5' 4 ) 02/17/2021 1:58 PM EDT Body Mass Index 27.81 02/17/2021 1:58 PM EDT Plan of Treatment Health Maintenance Due Date Last Done Comments BLOOD PRESSURE 1965 DEPRESSION SCREENING 1977 HEPATITIS C SCREENING 1983 HIV ONE-TIME SCREENING (18-6 5 YEARS) 1983 LIPID PANEL 1983 PAP SMEAR 1986 MAMMOGRAM 2005 COLOGUARD 2010 COLONOSCOPY 2010 COLORECTAL CANCER SCREENING 2010 FIT TEST 2010 FOBT 2010 SIGMOIDOSCOPY 2010 VIRTUAL COLONOSCOPY 2010 PNEUMOCOCCAL VACCINES (50+ y ears) (1 of 1 - PCV) 2015 ZOSTER VACCINES (1 of 2) 2015 Adult Td,Tdap Booster 12/30/2019 12/29/2009 COVID-19 VACCINE (1 - 2023-2 5 season) 2023 SMOKING STATUS SCREENING (On ce After 26 Yrs) Completed 07/08/2021 HEPATITIS A VACCINES Aged Out No long er eligible based on patient's age to complete this topic HIB VACCINES Aged Out No longer eligi ble based on patient's age to complete this topic MENINGOCOCCAL VACCINES (ACWY) Aged Out No longer eligible based on patient's age to complete this topic MENINGOCOCCAL VACCINES (B) Aged Out N o longer eligible based on patient's age to complete this topic Medical Devices Not on file Insurance [facility] Care Teams Biological Aide Relationship Specialty Start Date End Date Tamy Pascal MD [address] [place] [phone] PCP - General Internal Medicine 04/24/19 Additional Source Comments The information contained in this document represents components of the legal health record. It is not the complete legal health record.[facility]
== END 2024-11-20 11:01 | disposition home or self-care (01) ==
LOC: HO.HCS 10:34
PROVIDERS: PCP Internal Medicine; Visit Provider Internal Medicine Cardiovascular Disease
DX: I10 Essential (primary) hypertension (principal); I25.42 Coronary artery dissection
CPT/HCPCS: 99214

== ENCOUNTER 2025-01-12 11:31 | Outpatient (AMB) | payer OTHER, SELFPAY ==
[2025-01-12 11:35] VITALS: BP 138/82; PULSE 62; O2SAT 98; BMI 28.8
--- NOTE | 2025-01-12 11:35 | MHC.PC.OV ---
Vital Signs 01/12/25 11:35 Height 5 ft 4 in Weight 168 lb BMI 28.8 BP 138/82 Blood Pressure Location Lt brachial Position Sitting Pulse 62 Pulse Source Pulse Oximeter Pulse Oximetry (%) 98 Oxygen Delivery Method Room Air Intake Visit Reasons: Annual PE Allergies naproxen Allergy (Unknown, Verified 01/12/25 11:35) Unknown perindopril Allergy (Unknown, Verified 01/12/25 11:35) Unknown atorvastatin Adverse Reaction (Intermediate, Verified 01/12/25 11:35) myalgia lisinopril Adverse Reaction (Intermediate, Verified 01/12/25 11:35) cough Medication List - Last Reconciled 01/12/25 by Tamy Pascal MD amlodipine 5 mg PO DAILY 90 days ascorbate calcium (vitamin C) 1 g PO DAILY aspirin 81 mg PO DAILY [AUTOPAP 6-20 cm H2O humidified air Sleep study done 08/23/2023 moderately severe AHI of 16 supine AHI of 43 CPAP therapy with auto PAP mode pressure setting 6-20 cm] cholecalciferol (vitamin D3) 25 mcg PO DAILY magnesium 200 mg PO DAILY metoprolol succinate ER 100 mg PO DAILY Tobacco use date assessed: 06/29/24 Dental Screening Dental Screen Date: 01/12/25 Did you have a dental visit in the last 12 months?: Yes Did you have a dental problem in the last 6 months where you did not have access to dental care?: No Was dental information given to patient?: Patient has dentist HPI Annual PE HPI Details test done in [place] , high LDL and patient is aware, [facility] Medical History Hypercholesterolemia Breast cancer screening by mammogram Left nephrolithiasis Abnormal stress ECG with treadmill Chest pain Preoperative cardiovascular examination On beta jarrett at home Anemia Chest pain Splenic cyst Vasospastic angina Anxiety Renal calculi Thyroid nodule Hypertension Surgical History History of esophagogastroduodenoscopy (EGD) S/P cardiac catheterization History of lithotripsy History of total hysterectomy History of section Family History Father Mouth cancer Mother T-cell lymphoma Hypertension Maternal Uncle Stomach cancer Paternal Aunt Stomach cancer Colon cancer Paternal Uncle Myocardial infarction Cancer of kidney Son No problems noted. Daughter No problems noted. Social History (Updated 01/12/25 @ 12:10 by Tamy Pascal MD) Housing: House Alcohol intake: current Alcohol intake frequency: a few times a week Comment: once a week 1 glass - 2 glass, wine 2 a week (12/2024) Patient Tobacco Use Status: Never used Tobacco Tobacco use type: Cigarette e-Cigarette/Vaping Use: Never Used Second Hand Smoke Exposure: No service: No Current occupational status: employed Current occupation: [employer] right handed Current occupational exposures/hazards: No Cognitive needs: No Hearing needs: No Vision needs: No Questionnaire PHQ-9 Over the last 2 weeks, how often have you been bothered by any of the following problems? 1. Little interest or pleasure in doing things: not at all 2. Feeling down, depressed, or hopeless: not at all 3. Trouble falling or staying asleep, or sleeping too much: not at all 4. Feeling tired or having little energy: not at all 5. Poor appetite or overeating: not at all 6. Feeling bad about yourself - or that you are a failure or have let yourself or your family down: not at all 7. Trouble concentrating on things, such as reading the newspaper or watching television: not at all 8. Moving or speaking so slowly that other people could have noticed. Or the opposite - being so fidgety or restless that you have been moving around a lot more than usual: not at all 9. Thoughts that you would be better off or of hurting yourself in some way: not at all Total score: 0 Depression Screening Interpretation: Negative Depression Screening Done: Yes Source: Developed by Drs. Benito Dowell, Yris Smith, Mazin Gutierrez and colleagues, with an educational jodie from [employer]. Thrive Questionnaire Date Thrive assessed: 06/29/24 I am a: Patient What is your living situation today?: I have a steady place to live Within the past 12 months, did the food you bought not last and you didn't have the money to get more?: Never true Within the past 12 months, did you worry whether your food would run out before you got money to buy more?: Never true Do you have trouble paying for medicines?: No Do you have trouble getting transportation to medical appointments?: No Do you have trouble paying your heating and electricity bill?: No Do you have trouble taking care of your child, family member or friend?: No Do you have trouble with day-to-day activities such as bathing, preparing meals, shopping, managing finances, etc.?: No Are you currently unemployed and looking for a job?: No Are you interested in more education?: No Please select the resources that you would like help with: None Currently or been in a relationship where the following occur: No concerns reported THRIVE Score: 0 AUDIT C Alcohol Use Questionnaire (AUDIT-C) 1. How often do you have a drink containing alcohol?: 2-3 times a week 2. How many drinks containing alcohol do you have on a typical day when you are drinking?: 1 or 2 3. How often do you have six or more drinks on one occasion?: Never Total Score: 3 ARIES-7 AMB Questionnaire ARIES-7 Date ARIES - 7 assessed: 06/29/24 Feeling nervous, anxious, or on edge: 0 = Not at all Not being able to stop or control worryin = Not at all Worrying too much about different things: 0 = Not at all Trouble relaxin = Not at all Being so restless that it is hard to sit still: 0 = Not at all Becoming easily annoyed or irritable: 0 = Not at all Feeling afraid as if something awful might happen: 0 = Not at all Total ARIES-7 score (0-4 normal; 5-9 mild; 10-14 moderate; 15-21 severe): 0 Source: Developed by Drs. Benito Dowell, Yris Smith, Mazin Gutierrez and colleagues, with an educational jodie from [employer]. Review of Systems Const Denies poor appetite and Denies weakness Eyes Denies no additional complaints ENT Reports Normal hearing present, Denies dizziness, Denies nasal congestion, Denies tinnitus and Denies sore throat Card Denies chest pain, Denies syncope, Denies rapid heart rate and Denies dyspnea Resp Denies cough and Denies dyspnea GI Denies change in stool character, Reports constipation, Denies diarrhea, Denies nausea and Denies vomiting Denies urinary frequency, Denies difficulty voiding and Denies dysuria Neuro Reports Normal hearing present, Denies confusion, Denies dizziness, Denies syncope and Denies weakness Psych Denies confusion Physical exam (Primary Care) Vital Signs: Last Vital Signs Pulse 62 01/12/25 11:35 BP 138/82 01/12/25 11:35 Pulse Ox 98 01/12/25 11:35 Oxygen Delivery Method Room Air 01/12/25 11:35 BMI result Body Mass Index 28.8 Tobacco/Smoking Status: Tobacco use Status Tobacco use date assessed 06/29/24 01/12/25 11:39 Patient Tobacco Use Status Never used Tobacco 01/12/25 12:10 Tobacco use type Cigarette 01/12/25 12:10 e-Cigarette/Vaping Use Never Used 01/12/25 12:10 PHQ-9: PHQ-9 Score PHQ-9: Total score 0 01/12/25 12:00 Depression Screening Interpretation: Negative Thrive Assessment: Date of Thrive Assessment Date Thrive assessed 06/29/24 01/12/25 11:39 Currently or been in a relationship where the following occur: No concerns reported Const General: No confusion Orientation/consciousness: No confusion HENMT Head: Yes normocephalic Ears: external ears normal and TM's normal bilaterally Face and sinus: Yes normal facial exam Mouth: moist mucous membranes Throat: Yes tonsils normal Eyes Conjunctivae: conjunctivae normal Pupils: Equal, round and reactive pupils present and Pupil accommodation reflex normal Direct Ophthalmoscopy: normal light reflex Neck Neck: No lymphadenopathy Thyroid: Thyroid normal Chest Chest palpation & inspection: normal inspection of the chest Resp Effort & Inspection: normal respiratory effort and no audible wheezes Auscultation: clear to auscultation bilaterally, no crackles, no wheezes and lung sounds not diminished Cardio Rate: regular rate Rhythm: regular rhythm Peripheral pulses: radial pulses present and dorsalis pedis present GI Palpation (GI): no masses Auscultation: normal bowel sounds and normoactive bowel sounds Rectal Exam - Female: deferred Skin General skin exam: no rashes or lesions noted Rashes: no rashes Neuro General: No confusion Cranial nerves: Yes Equal, round and reactive pupils present and Yes Normal hearing present Cognition (Neuro): normal cognition Gait exam (Neuro): Normal gait present Motor exam (neuro): 5/5 motor strength present throughout Deep tendon reflexes (DTR's): Right brachioradialis reflex intensity grade: 2+, Left brachioradialis reflex intensity grade: 2+, Right patellar reflex intensity grade: 2+ and Left patellar reflex intensity grade: 2+ Extrem General: No edema Coding Level of Care Code Est Pt Prev Care 40-64y(92652) Diagnoses Annual physical exam Z00.00 Obstructive sleep apnea G47.33 Breast cancer screening by mammogram Z12.31 Impaired glucose tolerance R73.02 Hypercholesterolemia E78.00 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 (2) Obstructive sleep apnea: Comment: Sleep study done 08/23/2023 moderately severe AHI of 16 supine AHI of 43 CPAP therapy with auto PAP mode pressure setting 6-20 cm Code(s): G47.33 - Obstructive sleep apnea (adult) (pediatric) Category: Medical Plan: Continue to use the CPAP more than 4 hours a night and benefits from this. (3) Breast cancer screening by mammogram: Code(s): Z12.31 - Encounter for screening mammogram for malignant neoplasm of breast Category: Medical Plan: Reminded about mammogram (4) Impaired glucose tolerance: Code(s): R73.02 - Impaired glucose tolerance (oral) Category: Medical Plan: Decrease the amount of carbohydrate intake, pasta, bread, rice and potatoes are all sugar and that is aside from all the sweet stuff, remember that fruits are good but they are Sweet also. Patient needs to have blood work done (5) Hypercholesterolemia: Code(s): E78.00 - Pure hypercholesterolemia, unspecified Category: Medical Plan: Avoid fried foods, chicken skin, eggs, butter margarine, pastries and meat. Be it pork or beef they have a lot of cholesterol LDL goal of less than 70 and triglyceride of less than 150 (6) Spontaneous dissection of coronary artery: Comment: STEMI with right posterolateral branch dissection in 2016. Code(s): I25.42 - Coronary artery dissection Category: Medical Plan: Patient is being followed up by Cardiology and continue to monitor (7) Hypertension: Code(s): I10 - Essential (primary) hypertension Category: Medical Plan: Continue with blood pressure medication. Decrease salt intake and exercise on amlodipine 5 mg once a day metoprolol 100 mg once a day (8) Generalized anxiety disorder: Code(s): F41.1 - Generalized anxiety disorder Category: Medical (9) Cervical cancer screening: Code(s): Z12.4 - Encounter for screening for malignant neoplasm of cervix Category: Medical (10) Allergic conjunctivitis: Code(s): H10.10 - Acute atopic conjunctivitis, unspecified eye Category: Medical (11) Frequency of micturition: Code(s): R35.0 - Frequency of micturition Category: Medical Plan History of Present Illness The patient is a 59-year-old female presenting for a wellness visit and management of chronic conditions. The patient has a history of hypertension, managed with amlodipine and metoprolol, and reports occasional non-adherence to aspirin therapy. She has a history of nephrolithiasis and a spontaneous coronary artery dissection, with cardiology follow-up for ischemic changes and a non-ST elevation myocardial infarction in 2022. The patient has generalized anxiety disorder and impaired glucose tolerance, monitored regularly, and uses a CPAP machine for obstructive sleep apnea, though occasionally skips usage when traveling. Hypercholesterolemia is a concern, with elevated LDL levels noted in recent blood work, attributed to dietary habits during a vacation. The patient plans to repeat blood work in a few weeks to reassess cholesterol levels. She reports conjunctivitis symptoms, including redness and crusting, persisting for three months, with limited relief from antibiotic ointment and a suggestion to try allergy medication. The patient has a significant family history of various cancers and is aware of the need for regular screenings, with a mammogram due and a colonoscopy scheduled for next year. Health Maintenance - Mammogram due - Colonoscopy scheduled for next year - Blood work planned in a few weeks to reassess cholesterol levels - Regular use of CPAP for obstructive sleep apnea - Advised to maintain a healthy diet and exercise regularly Social History - Alcohol: Consumes wine with dinner twice a week, occasionally more during vacations - Exercise: Walks regularly with her dog and swims during summer - Pets: Has two pets at home Review of Systems - Cardiovascular: Reports palpitations, denies chest pain, syncope, or orthopnea - Respiratory: Denies dyspnea, cough, or wheezing - Gastrointestinal: Reports sensitivity to certain foods, denies nausea, vomiting, or abdominal pain - Neurological: Denies dizziness, headaches, or balance issues - Ophthalmologic: Reports redness and crusting of eyes, denies pain - Genitourinary: Denies dysuria or frequency Physical Exam General: Cooperative, healthy appearing, comfortable, no acute distress and well developed Orientation: Patient oriented x3 Limitations: No limitations Head: Normal to inspection Ears: Hearing grossly normal bilaterally Nose: Normal external nose present Face and sinus: Normal facial exam Eyes: Appearance normal, both eyes and all related structures, but patient reports watery and red eyes with crusting in the morning, possibly due to conjunctivitis or allergies Neck: Normal visual inspection and Yes full ROM Respiratory: Normal respiratory effort and able to speak in complete sentences. Clear to auscultation bilaterally Cardiovascular: Regular rate and rhythm. Normal S1 and S2 GI: Normal to inspection. Soft to palpation and nontender Skin: No rashes or lesions noted Neuro: Patient oriented x3 Extremities: Normal to inspection Results - Labs: Elevated LDL cholesterol noted in recent blood work - Imaging: Normal perfusion imaging on nuclear studies Plan Patient was informed and verbally consented to the use of an ambient scribe for clinic note documentation during this visit. 1. Hypertension The patient is on amlodipine and metoprolol for hypertension and should continue these medications while monitoring her blood pressure. 2. Hypercholesterolemia The patient has elevated LDL cholesterol levels and plans to repeat blood work in a few weeks to reassess levels, with advice to maintain a healthy diet. 3. Obstructive Sleep Apnea The patient should continue using her CPAP machine regularly to manage obstructive sleep apnea. 4. Conjunctivitis The patient is advised to try allergy medication for persistent conjunctivitis symptoms. 5. Preventative Care The patient is reminded to schedule a mammogram and a colonoscopy is planned for next year. Discussion Notes During the visit, I discussed the importance of managing hypertension with the patient, emphasizing adherence to her current medication regimen of amlodipine and metoprolol. We reviewed her elevated LDL cholesterol levels and the need for dietary modifications to improve her lipid profile. I advised her to continue using her CPAP machine for obstructive sleep apnea and to try allergy medication for her conjunctivitis symptoms. Preventative care measures, including scheduling a mammogram and planning for a colonoscopy next year, were also discussed. Patient Instructions - Continue taking amlodipine and metoprolol as prescribed for blood pressure management. - Schedule a mammogram and plan for a colonoscopy next year. - Use CPAP machine regularly for sleep apnea. - Try allergy medication for eye symptoms. - Maintain a healthy diet and exercise regularly. Orders: Orders US bladder Today R35.0 - Frequency of micturition Referrals [employer] Referral Z12.4 - Encounter for screening for malignant neoplasm of cervix Medications: New ketotifen fumarate 0.025%(0.035%) ([place]) 1 drp ophthalmic (eye) Q12H PRN 5 mL 0RF allergy symptoms H10.10 - Acute atopic conjunctivitis, unspecified eye Refilled metoprolol succinate ER 100 mg PO DAILY 90 tabs 2RF
--- OUTSIDE RECORDS SUMMARY | 2025-01-12 12:09 | XMS_ITS | Patient Health Record ---
Author Organization [facility] Address [address] [place] [address] Care Team Providers Care Health Support Specialist Name Role Phone Po Tamy MCBRIDE Primary Care Provider Benito Maynard [phone] Allergies Allergen (clinical drug ingredient) Drug/Non Drug [...] W/U Status Risk Notes Problem Esophageal reflux (698597329) Esophageal reflux (K21.9) Active confirmed Problem 707270297 Encounter for screening for malignant neoplasm of colon (Z12.11) Active confirmed Problem Screening for malignant neoplasm of rectum (853558260) Encounter for screening for malignant neoplasm of rectum (Z12.12) Active confirmed Problem 18256161 Abdominal pain, epigastric (R10.13) Active confirmed Problem 553103346 Gastroesophageal reflux disease, esophagitis presence not specified (K21.9) Active confirmed Problem Diverticulosis of sigmoid colon (346434286) Diverticulosis of sigmoid colon (K57.30) Active confirmed Problem 133277061 Gastroesophageal reflux disease, unspecified whether esophagitis present (K21.9) Active confirmed Plan Of Treatment Future Test Test Name Order Date UPPER GI ENDOSCOPY 06/11/2015 COLONOSCOPY 06/11/2015 UPPER GI ENDOSCOPY 05/25/2019 COLONOSCOPY 05/25/2019 UPPER GI ENDOSCOPY 07/31/2020 COLONOSCOPY 07/31/2020 Insurance Providers Payer Name Payer Address Payer Phone Subscriber Number Group Number Insured Name Patient Relationship to Insured Coverage Start Date Coverage End Date [employer] [address] [place] [phone] [id number] JERAMIE BOB Self - patient is the insured Medical (General) History Medical History History ICD Code Hypertension EGD in 02/2010--gastritis-neg. H. pylori , neg. Barium swallow in 2012 Denies DM,CVA,Lung disease,renal disease 10/2012--neg cardiac catheterization at [facility]--no [place] Kidney stones-s/p ESWL Anxiety [place] 04/2015--had cardiac cath at [facility]--no blockage--she describes a dissection in one of the coronary arteries--no stents, no angioplasty. Negative abdominal U/S in 2009, 2012, an d 04/2020 Surgical History Surgery Date(Month/Year) C- section Hysterectomy and removal of the left ova ry for fibroids 07/2012
--- OUTSIDE RECORDS SUMMARY | 2025-01-12 12:09 | XMS_ITS | Patient Health Record ---
Author Organization [facility] [employer] Address [address] [place] [address] Care Team Providers Care Cook Fry Name Role Phone YURY MEADOWS M.D. 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.11) Active confirmed Major Problem Benign essential hypertension (4128090) Essential hypertension, benign (401.1) Active confirmed Major Problem Excessive and frequent menstruation (396003921) Excessive or frequent menstruation (626.2) Active confirmed Major Problem Gynecological examination normal (059724967865590) Routine gynecological examination (V72.31) Active confirmed Problem Insertion of intrauterine contraceptive device (76752549) Insertion of intrauterine contraceptive device (V25.1) Active confirmed Major Problem Surveillance of intrauterine device contraception done (904262367340632) Surveillance of previously prescribed intrauterine contraceptive device (V25.42) Active confirmed Other Plan Of Treatment Pending Test Test Name Order Date MAMMOGRAM, SCREENING 07/25/2014 MM Digital Mammo Screening 08/16/2017 MM Digital Mammo Screening 07/14/2016 Next Appt Details Provider Name:Padmaja Lackey susana, 05/09/2025 02:00:00 PM, [address], [address], [place], [address], Insurance Providers Payer Name Payer Address Payer Phone Subscriber Number Group Number Insured Name Patient Relationship to Insured Coverage Start Date Coverage End Date [facility] [address] [place] [address] [id number] JERAMIE PERRIN Self - patient is the [...]
--- OUTSIDE RECORDS SUMMARY | 2025-01-12 12:09 | XMS_ITS | Clinical Summary ---
Author Organization [facility] Address [address] [place] [address] Phone Care Team Providers Care Applied Computer Science Professor Name Role Phone Tamy Pascal MD Primary Care Provider [phone] Allergies No known active allergies Medications metoprolol [...] vitamin C, (VITAMIN C) 1000 MG tabletIndicati ons:9287-6430 mg as needed Take 1,000 mg by mouth daily. Indications: 8680-2919 mg as needed Active albuterol (PROAIR HFA) 90 mcg/actuation inhaler Inhale 2 puffs into the lungs every 4 (four) hours as needed for wheezing. 18 g 1 Active Additional Information Patient not taking.Reported on 12/01/2024 coenzyme Q10 100 mg capsule Take 100 mg by mouth daily. Active magnesium oxide 250 mg (150 mg elemental) Tab Take 250 mg by mouth daily. Active neomycin-polym yxin B-dexAMETHason e (MAXITROL) 3.5 mg/g-10,000 unit/g-0.1 % Oint 5 Active Active Problems Problem Noted Date Diagnosed [...] Diagnosed Date Resolved Date Secondary hypertension 06/19/201906/19 Encounters Date Type Department Care Team Description 12/01/2024 10:20 AM EDT Office Visit [facility] at [address] [address] Sid Zabala, PANTERA Vulvar mass (Primary Dx) from Last 3 Months Immunizations Immunization Administration Dates Next Due Tdap [...] Answer Date Recorded No 09/19/2022 No 09/19/2022 Reliable internet access [...] Sign Reading Time Taken Comments Blood Pressure 150/89 12/01/2024 10:24 AM EDT Pulse 71 12/01/2024 10:24 AM EDT Temperature 36.9 C (98.4 F) 12/01/2024 10:24 AM EDT Respiratory Rate 18 12/01/2024 10:24 AM EDT Oxygen Saturation 98% 12/01/2024 10:24 AM EDT Inhaled Oxygen Concentration - - Weight 74.8 kg (165 lb) 12/01/2024 10:24 AM EDT Height 162.6 cm (5' 4 ) 12/01/2024 10:24 AM EDT Body Mass Index 28.32 12/01/2024 10:24 AM EDT Plan of Treatment Health Maintenance Due Date Last Done Comments DEPRESSION SCREENING 1977 HEPATITIS C SCREENING 1983 HIV ONE-TIME SCREENING (18-6 5 YEARS) 1983 LIPID PANEL 1983 PAP SMEAR 1986 MAMMOGRAM 2005 COLOGUARD 2010 COLONOSCOPY 2010 COLORECTAL CANCER SCREENING 2010 FIT TEST 2010 FOBT 2010 SIGMOIDOSCOPY 2010 VIRTUAL COLONOSCOPY 2010 PNEUMOCOCCAL VACCINES (50+ y ears) (1 of 1 - PCV) 2015 ZOSTER VACCINES (1 of 2) 2015 Adult Td,Tdap Booster 12/30/2019 12/29/2009 SCREENING FOR DIABETES 07/08/2024 07/08/2021 INFLUENZA VACCINE (#1) 2024 COVID-19 VACCINE ( - 2023-2 5 season) 2024 BLOOD PRESSURE 06/03/2025 12/01/2024 SMOKING STATUS SCREENING (On ce After 26 Yrs) Completed 12/01/2024 HEPATITIS A VACCINES Aged Out No long [...] topic Medical Devices Not on file [place] [address] [address] [place] [address] [place] [address] [facility] [place] [place] [address] [facility] Care Teams Applied Computer Science Professor Relationship Specialty Start Date End Date Gwyn Tamy Preston MD [address] [place] [id number] PCP - General Internal Medicine 04/24/19 Additional Source Comments The information contained in this document represents components of the legal health record. It is not the complete legal health record.[facility]
== END 2025-01-12 12:32 | disposition home or self-care (01) ==
LOC: HO.HMCH 11:32
PROVIDERS: PCP Internal Medicine; Visit Provider Internal Medicine
DX: Z00.00 Encounter for general adult medical examination without abnormal findings (principal); G47.33 Obstructive sleep apnea (adult) (pediatric); Z12.31 Encounter for screening mammogram for malignant neoplasm of breast; R73.02 Impaired glucose tolerance (oral); E78.00 Pure hypercholesterolemia, unspecified; I25.42 Coronary artery dissection; I10 Essential (primary) hypertension; F41.1 Generalized anxiety disorder; Z12.4 Encounter for screening for malignant neoplasm of cervix; H10.10 Acute atopic conjunctivitis, unspecified eye; R35.0 Frequency of micturition

== ENCOUNTER 2025-04-16 15:00 | Outpatient (REF) | payer OTHER, SELFPAY ==
--- NOTE | ~2025-04-16 | US_ITS ---
EXAMINATION: US PELVIS LIMITED (BLADDER) CLINICAL INFORMATION: Frequency of micturition. COMPARISON: None available. TECHNIQUE: Real-time imaging of the bladder. FINDINGS: BLADDER: Well distended. No wall thickening or mass is identified. . Bilateral ureteral jets are not demonstrated. Prevoid bladder volume is 692.8 mL. Postvoid bladder volume was not obtained. Post void images of the bladder, show no significant residual. US/US bladder IMPRESSION: Unremarkable ultrasound of the bladder. No significant postvoid residual seen.. Electronically signed by: Kwabena Gomez MD 04/17/2025 02:08 PM [place]
--- OUTSIDE RECORDS SUMMARY | 2025-04-16 18:17 | XMS_ITS | Patient Health Record ---
Author Organization [facility] Address [address] [place] [address] Care Team Providers Care Games Dealer Name Role Phone YURY MEADOWS M.D. Primary Care Provider Padmaja Coronel Unavailable [phone] Reason For Referral No Information Medications Medication [...] Status W/U Status Risk Notes Problem Menopause (218029146) Menopausal and female climacteric states (N95.1) Active confirmed Problem Submucous leiomyoma of uterus (63386870) Submucous leiomyoma of uterus (218.0) Active confirmed Diag Problem Leiomyoma of uterus (19618860) Leiomyoma of uterus, unspecified (218.9) Active confirmed Major Problem Uric acid nephrolithiasis (641574923) Uric acid nephrolithiasis (274.11) Active confirmed Major Problem Benign essential hypertension (8910904) Essential hypertension, benign (401.1) Active confirmed Major Problem Excessive and frequent menstruation (525765508) Excessive or frequent menstruation (626.2) Active confirmed Major Problem Gynecological examination normal (776014258880778) Routine gynecological examination (V72.31) Active confirmed Problem Insertion of intrauterine contraceptive device (60484280) Insertion of intrauterine contraceptive device (V25.1) Active confirmed Major Problem Surveillance of intrauterine device contraception done (276941574808547) Surveillance of previously prescribed intrauterine contraceptive device (V25.42) Active confirmed Other Plan Of Treatment Pending Test Test Name Order Date MAMMOGRAM, SCREENING 07/25/2014 MM Digital Mammo Screening 08/16/2017 MM Digital Mammo Screening 07/14/2016 Next Appt Details Provider Name:Padmaja Lackey susana, 05/09/2025 02:00:00 PM, [address], [address], [place], [address], Insurance Providers Payer Name Payer Address Payer Phone Subscriber Number Group Number Insured Name Patient Relationship to Insured Coverage Start Date Coverage End Date [facility] [address] [place] [address] [id number] JERAMIE PERRIN Self - patient is the [...]
--- OUTSIDE RECORDS SUMMARY | 2025-04-16 18:17 | XMS_ITS | Patient Health Record ---
Author Organization [facility] Address [address] [place] [address] Care Team Providers Care Endocrinology Teacher Name Role Phone Po Tamy MCBRIDE Primary Care Provider Benito Maynard [phone] Allergies Allergen (clinical drug ingredient) Drug/Non Drug Allergy documented on EMR Reaction Allergy Type Onset Date Status naproxen Naproxen sensitive Drug Allergy Active Reason For Referral No Information Medications Medication SIG (Take, Route, Frequency, Duration) Notes Start Date End Date Status Omeprazole 20 MG Capsule Delayed Release Orally Active Vitamin C Active Magnesium 250 MG Tablet 1 tablet with a meal Orally Once a day; Duration: 30 day(s) Active Vitamin D3 1000 UNIT Capsule 1 capsule Orally Once a day prn Active Omeprazole 20mg Not- Taking/PRN CeleXA 10mg Not-Taki ng/PRN Advil PRN-rarely Active Claritin Active Metoprolol Succinate ER 25 MG Tablet Extended Release 24 Hour 3 tablet Orally Once a day Active amLODIPine Besylate 5 MG Tablet 1 tablet Orally Once a day Active Immunizations Vaccine Route Administration Date Status Comme nts Influenza Unknown 07/31/2020 Refused Social History Social History Additional Details Category Social Info Options Details Miscellaneous: Marital status: Occupation: Package store ow ner Section Notes: Nonsmoker; drinks 1-2 glasse s of wine three times a week Nonsmoker; drinks 1-2 glasse s of wine three times a week Nonsmoker; drinks 1-2 glasse s of wine three times a week Nonsmoker; drinks 1-2 glasse s of wine three times a week Problems Problem Type SNOMED Code ICD Code Onset Dates Problem Status W/U Status Risk Notes Problem Esophageal reflux (020606635) Esophageal reflux (K21.9) Active confirmed Problem Screening for malignant neoplasm of colon (371182254) Encounter for screening for malignant neoplasm of colon (Z12.11) Active confirmed Problem Screening for malignant neoplasm of rectum (493337845) Encounter for screening for malignant neoplasm of rectum (Z12.12) Active confirmed Problem Epigastric pain (54931815) Abdominal pain, epigastric (R10.13) Active confirmed Problem Gastroesophageal reflux disease (073548824) Gastroesophageal reflux disease, esophagitis presence not specified (K21.9) Active confirmed Problem Diverticulosis of sigmoid colon (032557639) Diverticulosis of sigmoid colon (K57.30) Active confirmed Problem Gastroesophageal reflux disease (173057096) Gastroesophageal reflux disease, unspecified whether esophagitis present (K21.9) Active confirmed Plan Of Treatment Future Test Test Name Order Date UPPER GI ENDOSCOPY 06/11/2015 COLONOSCOPY 06/11/2015 UPPER GI ENDOSCOPY 05/25/2019 COLONOSCOPY 05/25/2019 UPPER GI ENDOSCOPY 07/31/2020 COLONOSCOPY 07/31/2020 Insurance Providers Payer Name Payer Address Payer Phone Subscriber Number Group Number Insured Name Patient Relationship to Insured Coverage Start Date Coverage End Date [facility] [address] [place] [phone] [id number] JERAMIE BOB Self - patient is the insured Medical (General) History Medical History History ICD Code Hypertension EGD in 02/2010--gastritis-neg. H. pylori , neg. 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 Negative abdominal U/S in 2009, 2012, an d 04/2020 Surgical History Surgery Date(Month/Year) C- section Hysterectomy and removal of the left ova ry for fibroids 07/2012
--- OUTSIDE RECORDS SUMMARY | 2025-04-16 18:17 | XMS_ITS | Clinical Summary ---
Author Organization [facility] Address [address] [place] [address] Phone Care Team Providers Care Edge Baster Name Role Phone Tamy Pascal MD Primary Care Provider [phone] Allergies No known active allergies Medications metoprolol [...] vitamin C, (VITAMIN C) 1000 MG tabletIndicati ons:3206-0152 mg as needed Take 1,000 mg by mouth daily. Indications: 8448-0964 mg as needed Active albuterol (PROAIR HFA) [...] VACCINE (#1) 2024 COVID-19 VACCINE ( - 2024-2 6 season) 2024 BLOOD PRESSURE 06/03/2025 12/01/2024 RSV VACCINE (1 - 1-dose 75+ series) 02/21/2040 SMOKING STATUS SCREENING (On ce After 26 [...] topic Medical Devices Not on file [place] [address] [address] * Guarantor: Tori Roth Account Type Relation to Patient Date of Phone Billing Address Personal/Family Self 1965 [address] [facility] Care Teams Edge Baster Relationship Specialty Start Date End Date Gwyn, Tamy Preston MD [address] [place] [phone] PCP - General Internal Medicine 04/24/19 Additional Source Comments The information contained in this document represents components of the legal health record. It is not the complete legal health record.[facility]
== END 2025-04-16 15:01 | disposition home or self-care (01) ==
LOC: HO.US 15:00
PROVIDERS: Visit Provider Internal Medicine
DX: R35.0 Frequency of micturition (principal)
CPT/HCPCS: 76857

== ENCOUNTER → 2025-04-16 15:04 | Outpatient (BNV) | payer OTHER, SELFPAY | PROVIDERS: Visit Provider Radiology Diagnostic Ultrasound | DX: R35.0 Frequency of micturition (principal) | CPT/HCPCS: 76857 ==